=== PATIENT | female | born 1930 | race Caucasian/White ===

== ENCOUNTER 2016-12-22 06:50 | Inpatient (IN) | payer MEDICARE, OTHER ==
[2016-12-22] MEDS ORDERED: SODIUM CHLORIDE 0.9% 1,000 ML IV ONE (07:14)
[2016-12-22] MEDS ORDERED: LEVALBUTEROL 1.25 MG INH STA (07:23)
[2016-12-22] MEDS ORDERED: SODIUM CHLORIDE INHALATION 3 ML NEB ONE (07:30)
[2016-12-22] MEDS ORDERED: LEVALBUTEROL 1.25 MG INH ONE (07:30)
[2016-12-22] MEDS ORDERED: SODIUM CHLORIDE FLUSH 0.9% 10 ML SYRINGE IVP ONE ×2 (07:35→08:47)
--- NOTE | 2016-12-22 07:43 | XRAY Preliminary Report ---
Exam: XR Chest 2 View PA/LAT IMPRESSION: 1. No acute cardiopulmonary abnormality demonstrated. 2. Suspect upper lung bronchitis and bronchiolitis. [facility] SITE ID: [id number]
--- NOTE | 2016-12-22 07:46 | XRAY Report ---
EXAM: CHEST RADIOGRAPHY EXAM DATE: 12/22/2016 07:32 AM. CLINICAL HISTORY: Cough COMPARISON: 06/26/2015. TECHNIQUE: 2 views. FINDINGS: Lungs/Pleura: Moderate thickening within the upper lobes noted bilaterally. There is mild bilateral a pical pleural thickening/scarring. No significant consolidation, effusion, or definite pneumothorax. Mediastinum: Heart and mediastinal contours are unremarkable. Other: Moderate multilevel degenerative change within the spine. IMPRESSION: 1. No acute cardiopulmonary abnormality demonstrated. 2. Suspect upper lung bronchitis and bronchiolitis. [facility] Referring Provider Line: [phone] SITE ID: [id number]
--- NOTE | 2016-12-22 07:50 | ED Physician Documentation ---
History of Present Illness - Stated complaint Stated Complaint: SOA/FLU LIKE SYMPTOMS - Chief complaint Chief Complaint: Resp - Additonal information Additional information: hx from pt 86 f with COPD 4 days of illness sweats and chills, myalgias, cough and soa, nausea and diarrhea son with similar but milder no travel no leg edema Review of Systems Constitutional: reports: Chills, Sweats. denies: Fever Cardiac: denies: Chest pain / pressure Respiratory: reports: Dyspnea, Cough, Wheezing Musculoskeletal: denies: Extremity swelling Neurologic: reports: Generalized weakness Endocrine: denies: Easy bruising / bleeding Immunocompromised: denies: Immunocompromised PD PAST MEDICAL HISTORY - Past Medical History Cardiovascular: Congestive heart failure, Hypertension, High cholesterol, Arrhythmia Respiratory: Emphysema, Pneumonia, Shortness of breath Neuro: Headache/migraine, Peripheral neuropathy Endocrine/Autoimmune: Type 2 diabetes, HyPOthyroidism GI: GERD, Hiatal hernia CHART CHANGER: None : Chronic bladder infection, Nocturia HEENT: Chronic vision loss, Macular degeneration, Chronic hearing loss Psych: Claustrophobia Musculoskeletal: Gout Derm: None - Past Surgical History Past Surgical History: Yes General: Bowel surgery - Present Medications Home Medications: Ambulatory Orders Medication Instructions Recorded Confirmed Cholecalciferol (Vitamin D3) 500 gm MC DAILY 07/26/12 12/22/16 [Vitamin D3] Hydrochlorothiazide 12.5 mg PO DAILY 07/26/12 12/22/16 Levothyroxine [Synthroid] 100 mcg PO QDAC 07/26/12 12/22/16 Lisinopril [Prinivil] 5 mg PO DAILY 07/26/12 12/22/16 Theophylline Anhydrous 300 mg PO DAILY 07/26/12 12/22/16 [Theophylline] Verapamil HCl [Verapamil ER] 240 mg PO DAILY 07/26/12 12/22/16 Vitamin B12 07/26/12 07/26/12 Vitamin B6 200 mg PO DAILY 07/26/12 12/22/16 Albuterol 2.5 mg INH Q4H PRN #30 neb 06/26/15 12/22/16 Albuterol Sulfate 2.5 mg IH 06/26/15 Amoxicillin 500 mg PO TID #20 tablet 06/26/15 Benzonatate [Tessalon] 100 mg PO TID PRN #15 capsule 06/26/15 12/22/16 Montelukast [Singulair] 10 mg PO QPM 06/26/15 12/22/16 Omeprazole 40 mg PO DAILY 06/26/15 06/26/15 Allopurinol 1 tab PO DAILY 12/22/16 12/22/16 Simvastatin 1 tab PO DAILY 12/22/16 12/22/16 - Allergies Allergies/Adverse Reactions: Allergies Allergy/AdvReac Type Severity Reaction Status Date / Time codeine [Codeine] Allergy Intermediate Itching Verified 12/22/16 06:59 - Social History Does the pt smoke?: No Smoking Status: Former smoker Does the pt drink ETOH?: No Does the pt have substance abuse?: No - Immunizations Immunizations are current?: Yes - POLST Patient has POLST: No PD ED PE NORMAL - Vitals Vital signs reviewed: Yes - General General: Alert and oriented X 3 - HEENT HEENT: PERRL - Neck Neck: Supple, no meningeal sign - Cardiac Cardiac: RRR (tachy) - Respiratory Respiratory: Other (ronchi rhgt, faint wheezing kemal) - Abdomen Abdomen: Soft, Non tender - Derm Derm: Normal color - Extremities Extremities: No edema, No calf tenderness / cord - Neuro Neuro: Alert and oriented X 3 Results - Vitals Vitals: Vital Signs - 24 hr 12/22/16 12/22/16 12/22/16 06:53 07:40 08:13 Temperature 36.6 C 36.9 C Heart Rate 134 H 123 H 93 Respiratory 18 18 20 Rate Blood Pressure 143/64 H 131/59 H O2 Saturation 96 92 Oxygen O2 Source Room air - EKG (time done) 933 Rate: Rate (enter#) (119) Rhythm: Sinus tachycardia [place]: LAD Ischemia: Q waves (II III V3), Non specific changes Compare to prior EKG: Old EKG unavailable - Tele (time rhythm occurred) 0900 Telemetry / rhythm strip: Other (appears to be afib) - Labs Labs: Laboratory Tests 12/22/16 12/22/16 12/22/16 07:43 07:43 07:43 WBC 17.5 H RBC 4.18 L Hgb 12.0 Hct 36.9 L MCV 88.2 MCH 28.7 MCHC 32.6 RDW 16.7 H Plt Count 190 MPV 8.9 Neut # 15.3 H Lymph # 1.2 L [place] # 0.8 Eos # 0.1 Baso # 0.1 Absolute Nucleated RBC 0.00 Nucleated RBC % 0.0 Sodium 136 Potassium 3.5 Chloride 99 L Carbon Dioxide 23 Anion Gap 14.0 H BUN 30 H Creatinine 1.2 H Estimated GFR (MDRD) 43 L Glucose 148 H Lactic Acid Calcium 10.3 Troponin I < 0.04 Influenza A (Rapid) Influenza B (Rapid) Influenza Types A,B Ag 12/22/16 12/22/16 07:43 07:43 WBC RBC Hgb Hct MCV MCH MCHC RDW Plt Count MPV Neut # Lymph # [place] # Eos # Baso # Absolute Nucleated RBC Nucleated RBC % Sodium Potassium Chloride Carbon Dioxide Anion Gap BUN Creatinine Estimated GFR (MDRD) Glucose Lactic Acid 1.4 Calcium Troponin I Influenza A (Rapid) Negative Influenza B (Rapid) Negative Influenza Types A,B Ag - - Rads (name of study) CXR Radiology: See rad report (upper lunch bronchitis and bronchiolitis) PD MEDICAL DECISION MAKING - ED course ED course: 86 female with COPD clinically sounds like she has influenza or right pna influenza swab neg and only a few cases of influenza locally so far so suspect pna CXR = no infiltrate but can commonly lag behind exam with underlying COPD and needing admit would rx antibiotic even if only bronchitis gave nebs, steroids, rocephin/zmax HR noted (SIRS) but lactate neg and BP fine and pt with hx CHF so only gave 1 L NS antony 92% RA, HR up to 135, will need admit tele looks like a fib - EMR states hx "arrhythmia" and pt is on verapamil but pt states she has no knowledge of having a fib - will get an EKG - EKG shows sinus tach Departure - Departure Disposition: 66 [facility] DC/Xfer Clinical Impression: Bronchitis COPD (chronic obstructive pulmonary disease) Qualifiers: COPD type: unspecified COPD Qualified Code(s): J44.9 - Chronic obstructive pulmonary disease, unspecified Condition: Fair
[2016-12-22 08:02] LABS: BASOPHILS # (AUTO) 0.1 10^3/uL (0.0-0.1); BASOPHILS % (AUTO) 0.5 %; EOSINOPHILS # (AUTO) 0.1 10^3/uL (0.0-0.7); EOSINOPHILS % (AUTO) 0.6 %; HCT - HEMATOCRIT 36.9 % (37.0-47.0); LYMPHOCYTES # (AUTO) 1.2 10^3/uL (1.5-3.5); LYMPHOCYTES % (AUTO) 6.8 %; MEAN CORPUSCULAR HEMOGLOBIN 28.7 pg (27.0-31.0); MEAN CORPUSCULAR HGB CONC 32.6 g/dL (32.0-36.0); MEAN CORPUSCULAR VOLUME 88.2 fL (81.0-99.0); MEAN PLATELET VOLUME 8.9 fL (7.9-10.8); MONOCYTES # (AUTO) 0.8 10^3/uL (0.0-1.0); MONOCYTES % (AUTO) 4.6 %; NEUTROPHILS # (AUTO) 15.3 10^3/uL (1.5-6.6); NEUTROPHILS % (AUTO) 87.5 %; RED BLOOD COUNT 4.18 10^6/uL (4.20-5.40); RED CELL DISTRIBUTION WIDTH 16.7 % (12.0-15.0); UNCORRECTED WHITE BLOOD COUNT 17.5 x10^3/uL; WHITE BLOOD COUNT 17.5 x10^3/uL (4.8-10.8)
[2016-12-22 08:14] LABS: CALCIUM 10.3 mg/dL (8.5-10.3); CREATININE 1.2 mg/dL (0.4-1.0); POTASSIUM 3.5 mmol/L (3.5-5.0)
[2016-12-22] MEDS ORDERED: methylPREDNISolone SUCCINATE 125 MG/2 ML VIAL IVP STA (08:21)
[2016-12-22] MEDS ORDERED: AZITHROMYCIN INJ 500 MG in SODIUM CHLORIDE 0.9% 250 ML IV STA (08:21)
[2016-12-22] MEDS ORDERED: cefTRIAXone 1 GM in SODIUM CHLORIDE 0.9% MINIBAG 100 ML IV STA (08:21)
[2016-12-22] MEDS ORDERED: cefTRIAXone 1 GM VIAL ONE (08:38)
[2016-12-22] MEDS ORDERED: methylPREDNISolone SUCCINATE 125 MG/2 ML VIAL ONE (08:39)
[2016-12-22] MEDS ORDERED: SODIUM CHLORIDE FLUSH 0.9% 10 ML SYRINGE IVP PRN (09:01)
[2016-12-22] MEDS ORDERED: SODIUM CHLORIDE 0.9% 1,000 ML IV SCH (10:00)
[2016-12-22] MEDS ORDERED: IPRATROPIUM/ALBUTEROL 3 ML NEB INH PRN (10:27)
[2016-12-22] MEDS ORDERED: LEVOTHYROXINE 100 MCG TABLET PO SCH (11:00)
[2016-12-22] MEDS: ENOXAPARIN 30 MG/0.3 ML SYRINGE SUBQ SCH (11:33)
[2016-12-22] MEDS: VERAPAMIL ER 120 MG TABLET PO SCH (11:33)
--- NOTE | 2016-12-22 12:05 | HISTORY & PHYSICAL EXAMINATION ---
DATE OF ADMISSION: 12/22/2016 PRIMARY CARE PROVIDER: Laura Mccabe MD. CHIEF COMPLAINT: Things started with a runny nose a few days ago and then she had diarrhea and now she is coughing with cream colored sputum and short of breath. HISTORY OF PRESENT ILLNESS: The patient is an 86-year-old female who lives with her son and comes in today feeling progressively worse over 3-4 days. Her son at he started developing some runny nose symptoms several days ago and for approximately 4 days now she has felt poorly with runny nose, no sinus pain, with no fever, but she has had sweats, has had what she refers to as diarrhea, which she qualifies/quantifies as loose bowels 1-2 times daily. Today she feels short of breath. Last had a real meal about 4 days ago, but has just been eating things liketoast and very small amounts of food. She has not taken her medications in 4 days. She does not usually have a cough despite her history of COPD and now has had a cough, sometimes productive of cream colored sputum. She uses her hand held bronchodilator ~ every 4-6 hrs at home. She has a nebulizer but was told not to use it since starting Breo a few months ago. She has not been hospitalized for COPD before. There is no associated chest pain. She does feel better after a breathing treatment in the ED. PAST MEDICAL HISTORY This is primarily obtained looking at the patient's actual pill bottles and inferring what her diagnoses and on prior presentations to the ER. She has not previously been admitted. 1. COPD,/emphysema for which she is on home theophylline and albuterol p.r.n. and recently started Breo ellipta (not in her purse with her other meds) 2. CHF is listed; however, she denies this and there are no prior echoes in the system here. 3. Hypertension. 4. Hyperlipidemia. 5. Peripheral neuropathy related to diabetes mellitus type 2. 6. Diabetes mellitus type 2, which is diet controlled. 7. Gastroesophageal reflux disease. 8. Gout. 09. Hypothyroidism. ALLERGIES: CODEINE. HOME MEDICATIONS These were confirmed looking through the pill bottles in her purse. 1. Hydrochlorothiazide 12.5 mg once daily. 2. Lisinopril 5 mg once daily. 3. Simvastatin 20 mg once daily. 4. Montelukast 10 mg or Singular. 5. Theophylline ER 300 mg once daily. 6. Allopurinol 300 mg once daily. 7. Levothyroxine 100 mg once daily. 8. Verapamil hydrochloride 240 mg once daily. 9. Omeprazole, which she is no longer taking, she says because "it made her sick." Of note, the patient says she has not taken her medications in about 3-4 days. 10. Breo ellipta (LABA + steroid) (which she informed me of after admission) SOCIAL HISTORY: [place] has been for many years[place] She does have another son who does not live nearby and she did have also a child who of complications of diabetes. She "killed himself with diabetes." She does have a history of tobacco use, which she stopped she says in 1975. She smoked for approximately 27 years, half pack a day, and she says she left a lot of cigarettes burning sitting on the igor tray. She does not drink and has no history of illicits. REVIEW OF SYSTEMS: She denies any unintentional weight loss or weight gain, although she has had very little oral intake for the last several days. Chills and sweats as per the HPI. HEAD, EARS, EYES, NOSE AND THROAT: She denies any vision changes. Wears glasses. No trouble chewing or swallowing. CARDIOVASCULAR: No chest pain or pressure. No palpitations, despite her heart rate currently being about 120. As above, she denies having history of congestive heart failure diagnosis, no lower extremity edema. No orthopnea and no near syncope. RESPIRATORY: Per the HPI. GASTROINTESTINAL: As above, little p.o. intake and diarrhea as per the HPI. No hematochezia or melena. GENITOURINARY: She denies frequency, dysuria, or hesitancy. MUSCULOSKELETAL: She denies any falls. She has a cane at home, which she does not use that often, but she says she always has it handy. SKIN: She denies any rash or changes. NEUROLOGIC: No weakness, paresthesias, or discoordination. No confusion, memory loss, or loss of consciousness. PSYCHIATRIC: She denies any new change. ENDOCRINE: She checks her blood sugars given her history of diabetes. She reports they are generally around 90. She does not take any medications for the diabetes. She denies any recent change in her thyroid medication. PHYSICAL EXAMINATION VITAL SIGNS: On presentation in the emergency room, she was afebrile with a heart rate of approximately 134, blood pressure 143/64, respiratory rate 18, 96 % oxygen on room air. At the time I saw her, she was still afebrile, heart rate about 126, blood pressure 131/59, respiratory rate 20, 93% oxygen on room air.GENERAL: The patient was evaluated in the emergency room. She is an elderly female lying on the stretcher with her head at approximately 45 degrees in no acute distress. She is alert, oriented and appropriate, even though she is not wearing oxygen and saturating in the low 90s. HEAD, EYES, EARS, NOSE AND THROAT: She is normocephalic, atraumatic. She does still have a full head of hair, which is very white. She is wearing glasses. Extraocular movements are intact with no nystagmus. Her pupils are equal, approximately 3 mm and reactive to light. There is no icterus. Her oral mucosa is actually relatively moist appearing. She has her own teeth, upper and lower with relatively poor dentition, a few missing teeth, yellowing and fillings. There is no foul odor. NECK: Supple. Her carotids are +2 with no appreciable extra sounds. HEART: Irregular S1, S2 with a rapid rate, currently rate about 120. I do appreciate any extra sounds at this rate. There is no peripheral edema. She does have some spider varicosities on her lower extremities.CHEST: She has unlabored respirations at rest. On auscultation, her breath sounds are distant. She is not particularly barrel chested. She has some sonorous expiratory sounds in the left lower base and inspiratory crackles on the right base and some scattered sonorous sounds. Otherwise, she is relatively clear with no wheezing. Periphery is notable for no cyanosis. ABDOMEN: Modestly obese with positive bowel sounds, soft, nontender with no scars, other than a very faint one midline, which she says was from an old hysterectomy. I do not appreciate any organomegaly. There is no tenderness. There is no suprapubic tenderness. 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 Reflexes were not tested. LABORATORY DATA: White count 17.5, hemoglobin 12, hematocrit 36.9, platelets 190 ,000, no bands. Sodium 136, potassium 3.5, chloride 99, bicarbonate 23, BUN 30, creatinine 1.2. There is no prior for comparison. Glucose 148. Troponin less than 0.04. Influenza A and B rapid tests were negative. IMAGING: A 2-view chest showed moderate thickening of the upper lobes bilaterally with mild bilateral apical pleural thickening/scarring. No significant consolidation, effusion or other. A 12-lead EKG was sinus tachycardia with a rate of approximately 120 with a left axis. There are Q's inferiorly in III and F and no acute ischemic changes. ASSESSMENT AND PLAN 1. Pneumonia. Right lower lobe suspected given leukocytosis, Right lower lobe crackles and worsening shortness of breath. Although there is no clear infiltrate on her chest x-ray, she is notably volume deplete, and I suspect an infiltrate will materialize after hydration. A chest x-ray will be repeated tomorrow. She will continue on the azithromycin and ceftriaxone at this point and will have scheduled nebulizer treatments q 4 hr when awake and prn wheeze and oxygen if needed. Since she is on Breo, will add pulmicort nebs here, but no systemic steroids as she does not have wheezing. If after hydration, she does still not have an infiltrate, then we will consider other possibilities for her leukocytosis, including her diarrhea. Of note, she does not have any urinary symptoms. Conceivably she could have an influenza given the sensitivity and specificity on the rapid antigen test, but given that she has had symptoms for several days without any sort of profound weakness and no fever, this is likely accurate negative on her influenza test and relatively low prevalence currently. 2. Chronic obstructive pulmonary disease. At home, she is on theophylline, p.r.n. albuterol and Singular that will be continued. In lieu of Breo, will give nebulized pulmicort. Will hold on systemic steroids as above I do not have PFTs in the record to refer to. 3. Tachycardia. This is a sinus tachycardia and likely related to her volume depletion, as well as not having taken her verapamil hydrochloride for several days. We will reevaluate once her is volume is more replete and she is hemodynamically stable with adequate blood pressure. Old records indicate history of "arrhythmia" although she is not familiar with this and there is no suggestion of this on her 12-lead EKG. She will be on telemetry until her heart rate is clear more better rate controlled. Will hold her levothyroxine until a TSH is checked in case she is over replaced on her thyroid although I suspect it is related more to the missed calcium channel karuna and voume depletion. 4. Hypertension. At home, she is on lisinopril and verapamil and HCTZ. I will hold the lisinopril and HCTZ until she is more volume replete. I am resuming her verapamil at half of the home dose and we will reevaluate tomorrow for resuming the home dose and holding her hydrochlorothiazide. 5. Diabetes mellitus type 2. She is on no medications at home and she reports her sugars being 90. She does not have any hypoglycemia at home. We will twice daily fingersticks while she is here and stop them if she does not have any glucoses over 140. 6. Gastroesophageal reflux disease. She used to be on a PPI, but is no longer taking it, so does not have any need for H2 karuna or PPI and no indication for GI prophylaxis. 7. Gout. At home she is on allopurinol. That will be continued. 8. Hypothyroidism. At home she is on levothyroxine. above will check TSH to ensure not overrepleted re: her tachycardia, otherwise will resume at home dose if TSH ok. 9. COR STATUS: She is a FULL COR, though she says "please do not break any bones." 10. Deep venous thrombosis prophylaxis. She is on Lovenox and I have reduced this to 30 given her age. 11) Disposition; expect a stay of over 2 midnights due to the pneumonia and tachycardia. Will encourage OOB to chair to avoid deconditioning and hopeful return home JOB #: [id number] EXT JOB #:[id number] LISA
[2016-12-22] MEDS: CHOLECALCIFEROL 5,000 UNIT CAPSULE PO SCH (12:43)
[2016-12-22] MEDS: SODIUM CHLORIDE FLUSH 0.9% 10 ML SYRINGE IVP SCH ×2 (12:44→20:13)
[2016-12-22 13:17] LABS: HEMOGLOBIN A1C 0.51 g/dL
--- NOTE | 2016-12-22 14:08 | PROVIDER PROGRESS NOTE ---
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 TSH 0.08; over replaced (at 62Kg, 100 mcg would be ~ appropriate weight based dosing) check Free T4, hold levothyroxine (usu recheck in PCP office once acute illness resolved 2Addendum to H/P #1 pneumonia will followup on blood cultures, recheck WBC in am
[2016-12-22] MEDS: INSULIN ASPART 300 UNIT/3 ML PEN SUBQ SCH ×2 (16:38→20:47)
[2016-12-22] MEDS: BUDESONIDE 0.5 MG/2 ML NEB INH SCH ×2 (18:58→19:01)
[2016-12-22] MEDS: IPRATROPIUM/ALBUTEROL 3 ML NEB INH SCH (18:59)
[2016-12-22] MEDS ORDERED: ASPIRIN 325 MG TABLET PO SCH ×2 (20:00)
[2016-12-22] MEDS: ATORVASTATIN 10 MG TABLET PO SCH (20:47)
[2016-12-22] MEDS: MONTELUKAST 10 MG TABLET PO SCH (20:47)
[2016-12-22] MEDS ORDERED: guaiFENesin 100 MG/5 ML UDC PO PRN (23:34)
[2016-12-22] MEDS ORDERED: diphenhydrAMINE 25 MG CAPSULE PO PRN (23:37)
[2016-12-22] MEDS ORDERED: ACETAMINOPHEN 325 MG TABLET PO ONE (23:45)
[2016-12-23] MEDS: SODIUM CHLORIDE FLUSH 0.9% 10 ML SYRINGE IVP SCH ×3 (04:34→20:09)
[2016-12-23 05:35] LABS: HCT - HEMATOCRIT 33.3 % (37.0-47.0); MEAN CORPUSCULAR HEMOGLOBIN 29.3 pg (27.0-31.0); MEAN CORPUSCULAR VOLUME 88.8 fL (81.0-99.0); MEAN PLATELET VOLUME 8.7 fL (7.9-10.8); RED BLOOD COUNT 3.75 10^6/uL (4.20-5.40); RED CELL DISTRIBUTION WIDTH 16.6 % (12.0-15.0); WHITE BLOOD COUNT 10.3 x10^3/uL (4.8-10.8)
[2016-12-23 05:46] LABS: CALCIUM 8.6 mg/dL (8.5-10.3); POTASSIUM 3.5 mmol/L (3.5-5.0)
[2016-12-23] MEDS: BUDESONIDE 0.5 MG/2 ML NEB INH SCH ×2 (07:58→20:25)
[2016-12-23] MEDS: IPRATROPIUM/ALBUTEROL 3 ML NEB INH SCH ×4 (07:58→20:35)
[2016-12-23] MEDS: INSULIN ASPART 300 UNIT/3 ML PEN SUBQ SCH ×4 (08:40→20:08)
[2016-12-23] MEDS: VERAPAMIL ER 120 MG TABLET PO SCH (08:40)
[2016-12-23] MEDS: AZITHROMYCIN 250 MG TABLET PO SCH (08:40)
[2016-12-23] MEDS: CHOLECALCIFEROL 5,000 UNIT CAPSULE PO SCH (08:41)
[2016-12-23] MEDS: ENOXAPARIN 30 MG/0.3 ML SYRINGE SUBQ SCH (08:42)
[2016-12-23] MEDS: POLYETHYLENE GLYCOL 3350 17 GM PACKET PO SCH (08:42)
[2016-12-23] MEDS: cefTRIAXone 1 GM in SODIUM CHLORIDE 0.9% MINIBAG 100 ML IV SCH (08:42)
--- NOTE | 2016-12-23 08:49 | XRAY Report ---
TWO-VIEW CHEST: 12/23/2016 CLINICAL INDICATION: Reevaluation for infiltrate after hydration. COMPARISON: 12/22/2016 FINDINGS: Frontal and lateral views of the chest demonstrate a normal cardiac silhouette. There is increasing opacity at the right apex and left base, compatible with infiltrate. No effusion or pneum othorax is present. IMPRESSION: RIGHT APICAL AND LEFT BASILAR AIRSPACE OPACITIES, COMPATIBLE WITH INFILTRATE. JOB #: [id number] EXT JOB #:[id number]
[2016-12-23] MEDS: THEOPHYLLINE ER 300 MG TABLET PO SCH (10:22)
--- NOTE | 2016-12-23 13:22 | PROVIDER PROGRESS NOTE ---
Subjective - Prog Note Date Prog Note Date: 12/23/16 Prog Note Time: 13:20 - Subjective Pt reports feeling: Improved (seen ~ 730 just before heading to CXR lyin in bed , NAd, transfers easily to wheel chair and sits self to upright at edge of bed "I got confused last night and wasnt wearing my gown') Current Medications - Current Medications Current Medications: Active Medications Generic Name Dose Route Start Last Admin Trade Name Freq PRN Reason Stop Dose Admin Albuterol/Ipratropium 3 ml 12/22/16 10:27 Duoneb INH Q4HR PRN Wheezing Albuterol/Ipratropium 3 ml 12/22/16 17:00 12/23/16 12:44 Duoneb INH 12/23/16 16:59 3 ml Q4HR ALMA ROSA Administration Atorvastatin Calcium 10 mg 12/22/16 21:00 12/22/16 20:47 Lipitor PO 10 mg QPM ALMA ROSA Administration Azithromycin 250 mg 12/23/16 09:00 12/23/16 08:40 Zithromax PO 12/26/16 09:01 250 mg DAILY ALMA ROSA Administration Budesonide 0.5 mg 12/22/16 14:00 12/23/16 07:58 Pulmicort INH 0.5 mg RTBID ALMA ROSA Administration Cholecalciferol 5,000 unit 12/22/16 12:00 12/23/16 08:41 Vitamin D3 PO 5,000 unit DAILY ALMA ROSA Administration Diphenhydramine HCl 25 mg 12/22/16 23:37 12/23/16 00:00 Benadryl PO 25 mg QPM PRN Administration Insomnia Enoxaparin Sodium 30 mg 12/22/16 11:00 12/23/16 08:42 Lovenox SUBQ 30 mg DAILY ALMA ROSA Administration Guaifenesin 100 mg 12/22/16 23:34 12/23/16 00:00 Robitussin Liquid PO 100 mg Q6HR PRN Administration Cough Ceftriaxone Sodium 1 gm/ 100 mls @ 200 mls/hr 12/23/16 09:00 12/23/16 09:37 Sodium Chloride IV Infused DAILY ALMA ROSA Infusion Insulin Aspart 1 - 5 unit 12/22/16 17:00 12/23/16 11:36 Novolog SUBQ 2 unit 0800,1200,1700,2100 ALMA ROSA Administration Protocol Montelukast Sodium 10 mg 12/22/16 21:00 12/22/16 20:47 Singulair PO 10 mg QPM ALMA ROSA Administration Polyethylene Glycol 17 gm 12/23/16 09:00 12/23/16 08:42 Miralax PO Not Given DAILY ALMA ROSA Sodium Chloride 10 ml 12/22/16 09:01 Normal Saline Flush 0.9% IVP PRN PRN NEEDED PER PROVIDER ORDERS Sodium Chloride 10 ml 12/22/16 14:00 12/23/16 08:42 Normal Saline Flush 0.9% IVP 10 ml Q8HR ALMA ROSA Administration Theophylline 300 mg 12/23/16 09:00 12/23/16 10:22 Theodur PO 300 mg DAILY ALMA ROSA Administration Verapamil HCl 120 mg 12/22/16 11:00 12/23/16 08:40 Calan Sa PO 120 mg DAILY ALMA ROSA Administration Cyanocobalamin (Vitamin B-12) [Vitamin B-12 (500 mcg sublingual)] 500 mcg PO DAILY 07/26/12 Hydrochlorothiazide 12.5 mg PO DAILY 07/26/12 Levothyroxine [Synthroid] 100 mcg PO QDAC 07/26/12 Lisinopril [Prinivil] 5 mg PO DAILY 07/26/12 Pyridoxine HCl [Vitamin B-6] 100 mg PO DAILY 07/26/12 Theophylline Anhydrous [Theophylline] 300 mg PO DAILY 07/26/12 Verapamil HCl [Verapamil ER] 240 mg PO DAILY 07/26/12 Montelukast [Singulair] 10 mg PO QPM 06/26/15 Albuterol Sulfate [Proair Respiclick] 1 puffs IH Q4H PRN 12/22/16 Allopurinol 300 mg PO DAILY 12/22/16 Aspirin 81 mg PO DAILY 12/22/16 Cholecalciferol [Vitamin D3] 5,000 unit PO DAILY 12/22/16 Fluticasone/Vilanterol [Breo Ellipta 100-25 Mcg INH] 1 each IH DAILY 12/22/16 Simvastatin 20 mg PO DAILY 12/22/16 Objective - Vital Signs/Intake & Output Reviewed Vital Signs: Yes Vital Signs: Vital Signs x48h Temp Pulse Pulse Resp BP Pulse Ox 12/23/16 12:46 98 16 12/23/16 11:23 36.2 C L 99 18 124/52 L 95 12/23/16 08:52 36.3 C L 92 18 116/52 L 96 12/23/16 08:00 72 16 Intake & Output: Intake & Output 12/20/16 12/21/16 12/22/16 12/23/16 23:59 23:59 23:59 23:59 Intake Total 4143.333 1520 Output Total 1550 1550 Balance 2593.333 -30 - Objective General Appearance: positive: No acute distress, Other (alert, and oriented) Eyes Bilateral: positive: PERRL, EOMI, No scleral icterus Respiratory: positive: No respiratory distress, Rhonchi, Other (occas loose cough, nonproductive here chest sounds much clearer currently than yesterday. RLL crackles still present but less, rare rhonchi, no wheezing showed me some cream colored phlegm she was able to cough up for the first time since admit). negative: Breath sounds nml Cardiovascular: positive: Regular rate & rhythm. negative: Tachycardia Abdomen: positive: Nml bowel sounds, No distention. negative: Tenderness Skin: positive: Warm, Dry Extremities: positive: No pedal edema Neurologic/Psychiatric: positive: Oriented x3 - Lab Results Fish Bones: 12/23/16 05:25 12/23/16 05:25 Other Labs: Lab Results x24hrs 12/23/16 12/23/16 12/23/16 Range/Units 10:50 07:29 05:25 WBC (4.8-10.8) x10^3/uL RBC (4.20-5.40) 10^6/uL Hgb (12.0-16.0) g/dL Hct (37.0-47.0) % MCV (81.0-99.0) fL MCH (27.0-31.0) pg MCHC (32.0-36.0) g/dL RDW (12.0-15.0) % Plt Count (130-450) 10^3/uL MPV (7.9-10.8) fL Sodium 137 (135-145) mmol/L Potassium 3.5 (3.5-5.0) mmol/L Chloride 104 (101-111) mmol/L Carbon Dioxide 22 (21-32) mmol/L Anion Gap 11.0 (6-13) BUN 27 H (6-20) mg/dL Creatinine 1.0 (0.4-1.0) mg/dL Estimated GFR (MDRD) 53 L (>89) Glucose 155 H (70-100) mg/dL POC Whole Bld Glucose 195 H 142 H (70 - 100) mg/dL Calcium 8.6 (8.5-10.3) mg/dL TSH (0.34-5.60) uIU/mL Free T4 (0.58-1.64) ng/dL 12/23/16 12/22/16 12/22/16 Range/Units 05:25 20:12 16:23 WBC 10.3 (4.8-10.8) x10^3/uL RBC 3.75 L (4.20-5.40) 10^6/uL Hgb 11.0 L (12.0-16.0) g/dL Hct 33.3 L (37.0-47.0) % MCV 88.8 (81.0-99.0) fL MCH 29.3 (27.0-31.0) pg MCHC 33.0 (32.0-36.0) g/dL RDW 16.6 H (12.0-15.0) % Plt Count 156 (130-450) 10^3/uL MPV 8.7 (7.9-10.8) fL Sodium (135-145) mmol/L Potassium (3.5-5.0) mmol/L Chloride (101-111) mmol/L Carbon Dioxide (21-32) mmol/L Anion Gap (6-13) BUN (6-20) mg/dL Creatinine (0.4-1.0) mg/dL Estimated GFR (MDRD) (>89) Glucose (70-100) mg/dL POC Whole Bld Glucose 189 H 203 H (70 - 100) mg/dL Calcium (8.5-10.3) mg/dL TSH (0.34-5.60) uIU/mL Free T4 (0.58-1.64) ng/dL 12/22/16 12/22/16 Range/Units 11:05 11:04 WBC (4.8-10.8) x10^3/uL RBC (4.20-5.40) 10^6/uL Hgb (12.0-16.0) g/dL Hct (37.0-47.0) % MCV (81.0-99.0) fL MCH (27.0-31.0) pg MCHC (32.0-36.0) g/dL RDW (12.0-15.0) % Plt Count (130-450) 10^3/uL MPV (7.9-10.8) fL Sodium (135-145) mmol/L Potassium (3.5-5.0) mmol/L Chloride (101-111) mmol/L Carbon Dioxide (21-32) mmol/L Anion Gap (6-13) BUN (6-20) mg/dL Creatinine (0.4-1.0) mg/dL Estimated GFR (MDRD) (>89) Glucose (70-100) mg/dL POC Whole Bld Glucose (70 - 100) mg/dL Calcium (8.5-10.3) mg/dL TSH < 0.08 L (0.34-5.60) uIU/mL Free T4 1.43 (0.58-1.64) ng/dL Assessment/Plan - Problem List (1) Community acquired pneumonia Impression: Following hydration she did have some infiltrates become more clear (R apical and l basilar, rather than R base where we thought there would be an infiltrate) leukocytosis improving, afebrile, blood cultures neg at one day , still no 02 requirement continue Ceftriaxone , azithromycin today got scheduled nebs yesterday, and just prn nebs now can likely d/c tomorow on azithro and amoxacillin as per IDSA recommendations ( considered just azithro since she is improvoing quickly, but since multilobar, and CopD at baseline will use both (2) COPD (chronic obstructive pulmonary disease) Impression: no signiifcant wheezing on presentation, so did not add systemic steroids continue pulmicort nebs here (on Breo ellipta at home) continue theodur and montelukast continue prn bronchodilator at home (she says she was told not to use nebulizer w/ her Breo) Qualifiers: COPD type: unspecified COPD Qualified Code(s): J44.9 - Chronic obstructive pulmonary disease, unspecified (3) Prerenal acute renal failure Impression: already improving w/ iVF, 1.2>>1.0 cr. Still a little dry by BUN continue iVF, continue hold ACEI and thiazide recheck in am (4) Sinus tachycardia Impression: resolved, suspect this was due to hypovolemia, and some rebound tach having not having taken her verapamil for 3-4 days initially thought her levothyroine might be over replaced w/ TSH 0.08, but free T4 ok ; caitlin sick-euthyroid see next problem Have resumed her home verapamil at 50% of her homed dose, thus far (5) Hypertension Impression: on verapamil 240 mg /day, lisinopril 5/day, and HCTZ at home 12.5 mg held acei and hctz on admit resumed verapamil at 1/2 of home dose yesterday. BP not hypotensive, but still holding acei and hctz for now Will order home dose verapamil for tomorrow, and resume acei/ hctz when BP warrants (may need to wait til she gets f/u after acute illness (6) Hypothyroidism Impression: checked TSH on admit given her tachycardia. TSH 0.08, but free T4 normal, ; likely sick euthyroid w/ acuete illness At 1.6 ucg/kg/day, 100 ucg is appropriate, PCP could reheck when acute illness resolves, Maybe she only needs 88 mcg (7) Diabetes mellitus type 2, diet-controlled Impression: diet contorlled at home A1C 5.8 indicates good control Mild elevation currently due to acute illness just doing bid FSBG breakfast dinner/ glucoses under 200 Will not need DM medication at time of d/c (just diet control) - continue statin (8) Gout Impression: no flare despite volume depletion; continue home dose alopurinol (meant to reduce dose on admit for Dionna, but renal fxn already improved
[2016-12-23] MEDS: ATORVASTATIN 10 MG TABLET PO SCH (20:08)
[2016-12-23] MEDS: MONTELUKAST 10 MG TABLET PO SCH (20:08)
[2016-12-24] MEDS: SODIUM CHLORIDE FLUSH 0.9% 10 ML SYRINGE IVP SCH (06:28)
[2016-12-24] MEDS: BUDESONIDE 0.5 MG/2 ML NEB INH SCH (07:40)
[2016-12-24] MEDS: INSULIN ASPART 300 UNIT/3 ML PEN SUBQ SCH (08:05)
[2016-12-24] MEDS: POLYETHYLENE GLYCOL 3350 17 GM PACKET PO SCH (08:06)
[2016-12-24] MEDS: CHOLECALCIFEROL 5,000 UNIT CAPSULE PO SCH (08:06)
[2016-12-24] MEDS: AZITHROMYCIN 250 MG TABLET PO SCH (08:06)
[2016-12-24] MEDS: THEOPHYLLINE ER 300 MG TABLET PO SCH (08:06)
[2016-12-24] MEDS: ENOXAPARIN 30 MG/0.3 ML SYRINGE SUBQ SCH (08:07)
[2016-12-24] MEDS: cefTRIAXone 1 GM in SODIUM CHLORIDE 0.9% MINIBAG 100 ML IV SCH (08:07)
[2016-12-24 08:38] VITALS: BP 121/60
[2016-12-24] MEDS ORDERED: VERAPAMIL ER 120 MG TABLET PO SCH (09:00)
--- NOTE | 2016-12-24 11:07 | Discharge Plan ---
Discharge Plan Disposition: 01 Home, Self Care Condition: Stable Prescriptions: Amox/Clav 500/125 [Augmentin] 1 each PO Q12H #14 tablet Azithromycin 250 mg PO DAILY #3 tablet Diet: Diabetic Activity Restrictions: Activity as Tolerated Shower Restrictions: No Weight Bearing: Full Weight Additional Instructions or Follow Up instructions: May see PCP in one week, may have a CXR in two weeks Follow-Up Care: [facility] - Medical, [facility] - Diabetes Ed No Smoking: If you smoke, Please STOP! Call for help. Follow-up with: Laura Mccabe MD [Primary Care Provider] -
--- NOTE | 2016-12-24 11:18 | DISCHARGE SUMMARY ---
Discharge Summary Admit Date: 12/22/16 Discharge Date: 12/24/16 Discharging Provider: DIAZ Primary Care Provider: Laura Sevilla Code Status: Do Not Attempt Resuscitation Condition at Discharge: Stable Discharge Disposition: 01 Home, Self Care Discharge Facility Name: home - DIAGNOSES Admission Diagnoses: (1) Community acquired pneumonia (2) COPD (chronic obstructive pulmonary disease) (3) Prerenal acute renal failure (4) Sinus tachycardia (5) Hypertension (6) Hypothyroidism (7) Diabetes mellitus type 2, diet-controlled (8) Gout Discharge Diagnoses with Status of Each Condition: (1) Community acquired pneumonia Room air with SO93%, denies SOB, fever, chill, cough. vital stable. Will continue to finish the antibiotics course by PO (2) COPD (chronic obstructive pulmonary disease) stable, continue home meds, follow up by PCP (3) Prerenal acute renal failure resolved (4) Sinus tachycardia resolved (5) Hypertension stable (6) Hypothyroidism T4 normal, chronic condition, will follow up by PCP (7) Diabetes mellitus type 2, diet-controlled stable (8) Gout stable - HPI History of Present Illness: please refer from Ms. Albarran's HPI on 12/22/16 - HOSPITAL COURSE Hospital Course: Pt was admitted for SOB, sweating, running nose, and CXR reveals pneumonia. Pt was treated with CAP with Azithyomycin and rocephin. After treatment, pt felt much better, no SOB, no cough, no fever or chill. Room air with SO2 93-97%. Pt request to be D/C to home. - ALLERGIES Allergies/Adverse Reactions: Allergies Allergy/AdvReac Type Severity Reaction Status Date / Time codeine [Codeine] Allergy Intermediate Itching Verified 12/22/16 06:59 - MEDICATIONS Home Medications: Ambulatory Orders Medication Instructions Recorded Confirmed Cyanocobalamin (Vitamin B-12) 500 mcg PO DAILY 07/26/12 12/22/16 [Vitamin B-12 (500 mcg sublingual)] Hydrochlorothiazide 12.5 mg PO DAILY 07/26/12 12/22/16 Levothyroxine [Synthroid] 100 mcg PO QDAC 07/26/12 12/22/16 Lisinopril [Prinivil] 5 mg PO DAILY 07/26/12 12/22/16 Pyridoxine HCl [Vitamin B-6] 100 mg PO DAILY 07/26/12 12/22/16 Theophylline Anhydrous 300 mg PO DAILY 07/26/12 12/22/16 [Theophylline] Verapamil HCl [Verapamil ER] 240 mg PO DAILY 07/26/12 12/22/16 Montelukast [Singulair] 10 mg PO QPM 06/26/15 12/22/16 Albuterol Sulfate [Proair 1 puffs IH Q4H PRN 12/22/16 12/22/16 Respiclick] Allopurinol 300 mg PO DAILY 12/22/16 12/22/16 Aspirin 81 mg PO DAILY 12/22/16 12/22/16 Cholecalciferol [Vitamin D3] 5,000 unit PO DAILY 12/22/16 12/22/16 Fluticasone/Vilanterol [Breo 1 each IH DAILY 12/22/16 12/22/16 Ellipta 100-25 Mcg INH] Simvastatin 20 mg PO DAILY 12/22/16 12/22/16 Amox/Clav 500/125 [Augmentin] 1 each PO Q12H #14 tablet 12/24/16 Azithromycin 250 mg PO DAILY #3 tablet 12/24/16 - PHYSICAL EXAM AT DISCHARGE General Appearance: positive: No acute distress, Alert. negative: Lethargic Eyes Bilateral: positive: Normal inspection, PERRL, EOMI, No lid inflammation, Conjunctivae nml ENT: positive: ENT inspection nml, Pharynx nml, No signs of dehydration. negative: Purulent nasal drainage, Pharyngeal erythema, Oral lesions Neck: positive: Nml inspection, Thyroid nml, Trachea midline. negative: Thyromegaly, Lymphadenopathy (R), Lymphadenopathy (L), Stiff neck, Carotid bruit , Swelling/bruising, Tracheal deviation Respiratory: positive: Chest non-tender, No respiratory distress, Breath sounds nml. negative: Wheezes, Rales, Rhonchi Cardiovascular: positive: Regular rate & rhythm, No murmur, No gallop. negative : Irregularly irregular, Extrasystoles, Tachycardia, Bradycardia, Systolic murmur, Diastolic murmur Peripheral Pulses: positive: 2+ Abdomen: positive: Non-tender, Nml bowel sounds, No distention. negative: Tenderness, Guarding, Rebound Back: positive: Nml inspection. negative: CVA tenderness (R), CVA tenderness (L ) Skin: positive: Color nml, No rash, Warm, Dry. negative: Cyanosis, Diaphoresis , Pallor, Skin rash Extremities: positive: Non-tender, Full ROM, Nml appearance. negative: Pedal edema, Calf tenderness, Asya's sign/cords Neurologic/Psychiatric: positive: Oriented x3, Motor nml, Sensation nml, Mood/ affect nml. negative: Sensory loss, Facial droop, Slurred/abnml speech, Depressed mood/affect - LABS Result Diagrams: 12/23/16 05:25 12/23/16 05:25 - FOLLOW UP Follow Up: May see PCP in one week, have a CXR in two week, continue to finish antibiotics course.
== END 2016-12-24 12:23 | disposition home or self-care (01) | DRG 194 ==
LOC: ED 06:50 → MS2 09:01
PROVIDERS: ADMIT Nurse Practitioner; ATTEND Nurse Practitioner Gerontology
DX: J44.9 Chronic obstructive pulmonary disease, unspecified (principal); I11.0 Hypertensive heart disease with heart failure; I50.9 Heart failure, unspecified; J18.9 Pneumonia, unspecified organism; J44.0 Chronic obstructive pulmonary disease with (acute) lower respiratory infection; N17.8 Other acute kidney failure; I49.9 Cardiac arrhythmia, unspecified; Z79.899 Other long term (current) drug therapy; I10 Essential (primary) hypertension; E03.9 Hypothyroidism, unspecified; E11.9 Type 2 diabetes mellitus without complications; M10.9 Gout, unspecified; E86.9 Volume depletion, unspecified; R00.0 Tachycardia, unspecified; T46.1X6A Underdosing of calcium-channel blockers, initial encounter; Z91.138 Patient's unintentional underdosing of medication regimen for other reason; E78.5 Hyperlipidemia, unspecified; E11.42 Type 2 diabetes mellitus with diabetic polyneuropathy; K21.9 Gastro-esophageal reflux disease without esophagitis; Z87.891 Personal history of nicotine dependence
CPT/HCPCS: 36415; 71020; 80048; 83036; 83605; 84439; 84443; 84484; 85025; 87040; 87275; 87276; 93005; 94640; 94664; 96374; 99283; 99284

== ENCOUNTER 2017-02-14 13:46 | Outpatient (CLI) | payer MEDICARE, OTHER ==
--- NOTE | 2017-02-14 18:45 | XRAY Report ---
TWO VIEW CHEST: 02/14/2017 CLINICAL INDICATION: COPD. COMPARISON: 12/23/2016, 12/22/2016. Frontal and lateral views of the chest demonstrate a normal cardiac silhouette. The lungs remain hyp erinflated. Patchy infiltrates have improved. No effusion or pneumothorax is present. IMPRESSION: COPD. INTERVAL IMPROVEMENT IN PATCHY RIGHT UPPER AND LEFT LOWER LOBE INFILTRATES. JOB #: [id number] EXT JOB #:[id number]
== END 2017-02-14 13:47 | disposition home or self-care (01) ==
LOC: DI 13:46
PROVIDERS: ATTEND Internal Medicine
DX: R91.8 Other nonspecific abnormal finding of lung field (principal); J44.9 Chronic obstructive pulmonary disease, unspecified
CPT/HCPCS: 71020

== ENCOUNTER 2017-03-04 11:08 | Outpatient (CLI) | payer MEDICARE, OTHER ==
--- NOTE | 2017-03-04 13:09 | XRAY Report ---
EXAM: CHEST RADIOGRAPHY EXAM DATE: 03/04/2017 12:10 PM. CLINICAL HISTORY: PNEUMONIA. COMPARISON: 02/14/2017. TECHNIQUE: 2 views. FINDINGS: Lungs/Pleura: There are interstitial densities in the right upper lobe with I lateral apical pleural thickening, unchanged since previous. No developing consolidation. Lung volumes appear symmetric and unchanged. There is localized eventration of the posterior left hemidiaphragm consistent with Bochdal ek hernia. Mediastinum: The heart size is within normal limits. There is mild aortic atherosclerotic calcificati on. Other: None. IMPRESSION: 1. No acute cardiopulmonary abnormality. No change. [facility] Referring Provider Line: [phone] SITE ID: [id number]
== END 2017-03-04 11:09 | disposition home or self-care (01) ==
LOC: DI 11:08
PROVIDERS: ATTEND Internal Medicine
DX: J18.9 Pneumonia, unspecified organism (principal)
CPT/HCPCS: 71020

== ENCOUNTER 2017-08-08 15:54 | Inpatient (IN) | payer MEDICARE, OTHER ==
--- NOTE | 2017-08-08 16:06 | ED Physician Documentation ---
PD HPI FOCAL NEURO - Stated complaint Stated Complaint: ARM TINGLING - Chief complaint Chief Complaint: Neuro - History obtained from History obtained from: Patient - History of Present Illness Timing - onset: How many hours ago (2), Today Timing - duration: Hours (went for nap at 1 pm feeling okay. Awoke with numbness without weakness of left arm and left side of face. Leg felt okay. No other focal symptoms. No visual change.) Timing - details: Abrupt onset, Still present Severity of deficit: Mild Weakness: No: Face, Arm, Hand Numbness: Face, Arm, Hand, Left. No: Foot Associated symptoms: No: Headache, Nausea / vomiting Contributing factors: negative: Anticoagulated, Atrial fibrillation Baseline status: positive: A&OX3, ambulatory, indep Similar symptoms before: No diagnosis (had same symptoms 2 days ago lasting about an hour then improved.) Recently seen: Not recently seen Review of Systems Constitutional: denies: Fever, Chills Nose: denies: Rhinorrhea / runny nose, Congestion Throat: denies: Sore throat Cardiac: denies: Chest pain / pressure, Palpitations Respiratory: denies: Dyspnea, Cough, Wheezing GI: denies: Abdominal Pain, Nausea, Vomiting, Diarrhea : denies: Dysuria, Frequency Musculoskeletal: denies: Neck pain, Back pain Neurologic: reports: Numbness. 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 : Chronic bladder infection, Nocturia HEENT: Chronic vision loss, Macular degeneration, Chronic hearing loss Psych: Claustrophobia Musculoskeletal: Gout Derm: None - Past Surgical History Past Surgical History: Yes General: Bowel surgery - Present Medications Home Medications: Ambulatory Orders Medication Instructions Recorded Confirmed Cyanocobalamin (Vitamin B-12) 500 mcg PO DAILY 07/26/12 12/22/16 [Vitamin B-12 (500 mcg sublingual)] Hydrochlorothiazide 12.5 mg PO DAILY 07/26/12 12/22/16 Levothyroxine [Synthroid] 100 mcg PO QDAC 07/26/12 12/22/16 Lisinopril [Prinivil] 5 mg PO DAILY 07/26/12 12/22/16 Pyridoxine HCl [Vitamin B-6] 100 mg PO DAILY 07/26/12 12/22/16 Theophylline Anhydrous 300 mg PO DAILY 07/26/12 12/22/16 [Theophylline] Verapamil HCl [Verapamil ER] 240 mg PO DAILY 07/26/12 12/22/16 Montelukast [Singulair] 10 mg PO QPM 06/26/15 12/22/16 Albuterol Sulfate [Proair 1 puffs IH Q4H PRN 12/22/16 12/22/16 Respiclick] Allopurinol 300 mg PO DAILY 12/22/16 12/22/16 Aspirin 81 mg PO DAILY 12/22/16 12/22/16 Cholecalciferol [Vitamin D3] 5,000 unit PO DAILY 12/22/16 12/22/16 Fluticasone/Vilanterol [Breo 1 each IH DAILY 12/22/16 12/22/16 Ellipta 100-25 Mcg INH] Simvastatin 20 mg PO DAILY 12/22/16 12/22/16 Amox/Clav 500/125 [Augmentin] 1 each PO Q12H #14 tablet 12/24/16 Azithromycin 250 mg PO DAILY #3 tablet 12/24/16 - Allergies Allergies/Adverse Reactions: Allergies Allergy/AdvReac Type Severity Reaction Status Date / Time codeine [Codeine] Allergy Intermediate Itching Verified 12/22/16 06:59 - Social History Does the pt smoke?: No Smoking Status: Former smoker Does the pt drink ETOH?: No Does the pt have substance abuse?: No - Immunizations Immunizations are current?: Yes - POLST Patient has POLST: No PD ED PE NORMAL - General General: Alert and oriented X 3, No acute distress, Well developed/nourished - HEENT HEENT: Atraumatic, Pharynx benign - Neck Neck: Supple, no meningeal sign, No adenopathy - Cardiac Cardiac: RRR, No murmur - Respiratory Respiratory: No respiratory distress, Clear bilaterally - Abdomen Abdomen: Soft, Non tender - Back Back: No CVA TTP - Derm Derm: Normal color, Warm and dry - Extremities Extremities: No deformity, No tenderness to palpate, Normal ROM s pain - Neuro Neuro: Alert and oriented X 3, 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, No motor deficit, No sensory deficit (has sensation to pinprick in hands/feet.), Normal speech Eye Opening: Spontaneous Motor: Obeys Commands Verbal: Oriented GCS Score: 15 - Psych Psych: Normal mood, Normal affect NIHSS - Level of Consciousness Level of consciousness: (0) Alert, Keenly responsive LOC Questions: (0) Answers both Q's correct LOC Commands: (0) Performs both correctly - Gaze Best Gaze: (0) Normal - Visual Visual: (0) No loss - Facial Palsy Facial Palsy: (0) Normal, symmetrical movement - Motor Arms (both separate) Motor Arm (right): (0) No drift Motor Arm (left): (0) No drift - Motor Legs (both separate) Motor Leg (right): (0) No drift Motor Leg (left): (0) No drift - Limb Ataxia Limb Ataxia: (0) Absent - Sensory Sensory: (1) [id number] loss - Best Language Best Language: (0) No aphasia - Dysarthria Dysarthria: (0) Normal - Extinction and Inattention (formally neg Extinction and inattention: (0) No abnormality - Total Score/Results Total Score/Result: 1 Results - Vitals Vitals: Vital Signs - 24 hr 08/08/17 08/08/17 15:58 17:50 Temperature 36.0 C L Heart Rate 86 73 Respiratory 16 14 Rate Blood Pressure 123/49 L 142/67 H O2 Saturation 99 99 Oxygen O2 Source Room air - Labs Labs: Laboratory Tests 08/08/17 08/08/17 16:50 16:50 WBC 8.3 RBC 4.31 Hgb 12.6 Hct 38.7 MCV 89.7 MCH 29.3 MCHC 32.6 RDW 15.3 H Plt Count 186 MPV 9.1 Neut # 5.0 Lymph # 2.1 Mccreary # 0.7 Eos # 0.4 Baso # 0.1 Absolute Nucleated RBC 0.00 Nucleated RBC % 0.0 Sodium 138 Potassium 3.9 Chloride 100 L Carbon Dioxide 28 Anion Gap 10.0 BUN 26 H Creatinine 1.0 Estimated GFR (MDRD) 53 L Glucose 92 Calcium 9.9 Magnesium 1.6 L Total Bilirubin 0.5 AST 42 ALT 25 Alkaline Phosphatase 72 Total Protein 7.9 Albumin 4.6 Globulin 3.3 Albumin/Globulin Ratio 1.4 Lipase 37 - Rads (name of study) head CT Radiology: Prelim report reviewed (no acute process), EMP read contemporaneously PD MEDICAL DECISION MAKING - ED course Complexity details: reviewed results, considered differential (concern for CVA, though likely more lacune at internal capsule or such with just numbness and not weakness. Presume not main vessel. Consider other causes such as MS. Does not sound metabolic with it left sided. ), d/w patient, d/w family Departure - Departure Disposition: 66 [facility] DC/Xfer Clinical Impression: Stroke-like symptoms, Left sided numbness Condition: Stable Record reviewed to determine appropriate education?: Yes
[2017-08-08 17:00] LABS: BASOPHILS # (AUTO) 0.1 10^3/uL (0.0-0.1); BASOPHILS % (AUTO) 1.3 %; EOSINOPHILS # (AUTO) 0.4 10^3/uL (0.0-0.7); EOSINOPHILS % (AUTO) 4.9 %; HGB - HEMOGLOBIN 12.6 g/dL (12.0-16.0); LYMPHOCYTES # (AUTO) 2.1 10^3/uL (1.5-3.5); LYMPHOCYTES % (AUTO) 25.9 %; MEAN CORPUSCULAR HEMOGLOBIN 29.3 pg (27.0-31.0); MEAN CORPUSCULAR HGB CONC 32.6 g/dL (32.0-36.0); MEAN CORPUSCULAR VOLUME 89.7 fL (81.0-99.0); MEAN PLATELET VOLUME 9.1 fL (7.9-10.8); MONOCYTES # (AUTO) 0.7 10^3/uL (0.0-1.0); MONOCYTES % (AUTO) 7.9 %; PLT - PLATELET COUNT 186 10^3/uL (130-450); RED BLOOD COUNT 4.31 10^6/uL (4.20-5.40); RED CELL DISTRIBUTION WIDTH 15.3 % (12.0-15.0); WHITE BLOOD COUNT 8.3 x10^3/uL (4.8-10.8)
--- NOTE | 2017-08-08 17:05 | CT Report ---
EXAM: CT HEAD EXAM DATE: 08/08/2017 04:46 PM. CLINICAL HISTORY: Left arm and face numbness since 1-2 pm. COMPARISON: 05/06/2011. TECHNIQUE: Multiaxial CT images were obtained from the foramen magnum to the vertex. Reformats: Coron al. IV contrast: None. In accordance with CT protocol optimization, one or more of the following dose reduction techniques w ere utilized for this exam: automated exposure control, adjustment of mA and/or KV based on patient s ize, or use of iterative reconstructive technique. FINDINGS: Parenchyma: No intraparenchymal hemorrhage. No evidence of mass, midline shift, or CT findings of inf arction. Silva-white differentiation is distinct. Extraaxial Spaces: Normal for age. No subdural or epidural collections identified. Ventricles: Normal in size and position. Sinuses and Orbits: Imaged paranasal sinuses, orbits, and mastoids show no significant abnormality. Bones: No evidence of fracture or calvarial defect. Other: None. IMPRESSION: Negative for an acute or focal intracranial abnormality. [facility] Referring Provider Line: [phone] SITE ID: [id number]
--- NOTE | 2017-08-08 17:05 | CT Preliminary Report ---
Exam: CT HEAD W/O IMPRESSION: Negative for an acute or focal intracranial abnormality. [facility] SITE ID: [id number]
[2017-08-08 17:07] LABS: ALBUMIN 4.6 g/dL (3.2-5.5); ALBUMIN/GLOBULIN RATIO 1.4 (1.0-2.2); BILIRUBIN,TOTAL 0.5 mg/dL (0.2-1.0); CALCIUM 9.9 mg/dL (8.5-10.3); MAGNESIUM 1.6 mg/dL (1.7-2.8); TOTAL PROTEIN 7.9 g/dL (6.7-8.2)
[2017-08-08] MEDS ORDERED: ASPIRIN CHEW 81 MG TABLET PO STA (17:44)
[2017-08-08] MEDS ORDERED: TEMAZEPAM 15 MG CAPSULE PO PRN (19:20)
[2017-08-08] MEDS ORDERED: SODIUM CHLORIDE FLUSH 0.9% 10 ML SYRINGE IVP PRN (19:20)
[2017-08-08] MEDS: MONTELUKAST 10 MG TABLET PO SCH (21:10)
[2017-08-08] MEDS: AMOX/CLAV 500 MG/125 MG TABLET PO SCH (21:10)
[2017-08-08] MEDS: SODIUM CHLORIDE FLUSH 0.9% 10 ML SYRINGE IVP SCH (21:11)
--- NOTE | 2017-08-08 22:06 | HISTORY & PHYSICAL EXAMINATION ---
DATE OF SERVICE: 08/08/2017 Physician: Kimberly Burris MD HISTORY OF PRESENT ILLNESS: This is an 86-year-old white female with a history of diet-controlled diabetes, hypertension, asthma/COPD, hospitalized here for pneumonia in December 2016, gout, hypothyroidism, chronic bladder infection, macular degeneration, chronic vision and hearing loss, GERD, and hiatal hernia. The patient awoke from a nap this afternoon and noticed left face and left arm numbness without weakness and she presented to the emergency room. The symptom had not yet resolved after 4 hours and she is being admitted for a CVA, TIA versus other etiology of neurologic changes. The patient had similar symptoms 2 days ago that lasted 1 hour and she did not seek medical attention for this. There were no associated palpitations, syncope, chest pain, or shortness of breath. She is compliant with her medications. There is no motor deficit with these complaints or vision, speech or swallowing changes. She thinks she has had a TIA in the past. REVIEW OF SYSTEMS: A comprehensive review of systems was performed and the pertinent positives are above. ALLERGIES: CODEINE. MEDICATIONS 1. Verapamil ER 240 mg daily. 2. Theophylline 300 mg daily. 3. Simvastatin 20 mg daily. 4. Vitamin B6. 5. Vitamin B12. 6. Vitamin D3. 7. Multivitamin. 8. Singulair 10 mg every evening. 9. Lisinopril 5 mg daily. 10. Synthroid 100 mcg daily. 11. HCTZ 12.5 mg daily. 12. Breo Ellipta 1 puff daily. 13. Zithromax 250 mg daily. 14. Aspirin 81 mg daily. 15. Augmentin 500/125 p.o. b.i.d. 16. Allopurinol 300 mg daily. 17. ProAir 1 puff q.4h. p.r.n. 18. Fluticasone unknown dose. 19. Vilanterol unknown dose. FAMILY HISTORY: No inherited diseases. SOCIAL HISTORY: The patient is a nonsmoker, drinks alcohol or uses any illicit drugs. She is independent and active. PHYSICAL EXAMINATION GENERAL: Elderly white female. She has poor dentition. VITAL SIGNS: Blood pressure 145/68, pulse of 75 in sinus rhythm, afebrile, room air saturation 99%. HEENT: Remarkable for moist oral mucosa and poor dentition with many missing teeth. NECK: Without JVD or carotid bruits. CHEST: Clear. HEART: Sounds normal. No murmurs. ABDOMEN: Soft. EXTREMITIES: Without edema. No clubbing or cyanosis. NEUROLOGIC: In the ER she had decreased sensation to light touch, but normal sensation to pinprick in the left upper extremity and left face. Currently, her sensory exam is normal in the left arm and left face. No motor deficit noted. Other cranial nerves intact. LABORATORIES: Normal electrolytes. Normal BUN and creatinine. Magnesium 1.6. Normal liver tests. Normal CBC. No INR was done. No chest x-ray was done. No EKG was done. A head CT was done that was unremarkable. IMPRESSION/DIAGNOSES 1. Possible stroke vs TIA, but also rule out multiple sclerosis or cervical spine abnormality. 2. Diet-controlled diabetes. 3. Hypertension. 4. Hypothyroidism. 5. Asthma/Chronic obstructive pulmonary disease, currently stable. PLAN: Admit the patient to telemetry and evaluate for atrial fibrillation. Obtain an EKG for baseline. Obtain an Echo to rule out a cardiac source of embolus. Obtain carotid Doppler to evaluate for atherosclerosis and potential source of embolism. Obtain a brain MRI and c-spine MRI to evaluate the extent of possible stroke, rule out changes of multiple sclerosis and evaluate for cervical spine degenerative and disk disease. Start the patient on a diabetic diet. Continue with her antihypertensives, thyroid medicine, COPD medicine and chronic UTI medication. Obtain OT and PT consults. DVT PROPHYLAXIS: SCDs, no Lovenox until we are sure she does not have a stroke with hemorrhagic transformation. CODE STATUS: FULL CODE. ATTESTATION: The patient is expected to be discharged within 96 hours or transfer to another facility: Yes. TD: 08/08/2017 20:19 LISA
[2017-08-09] MEDS ORDERED: FLUTICASONE HFA 110 MCG INHALER INH SCH (02:00)
[2017-08-09] MEDS ORDERED: FLUTICASONE NASAL SPRAY NAS ONE (03:23)
[2017-08-09] MEDS: LEVOTHYROXINE 100 MCG TABLET PO SCH (06:04)
[2017-08-09 06:57] LABS: CHOL/HDL RATIO 3.3 (<4.4); CHOLESTEROL 223 mg/dL; HDL CHOLESTEROL 68 mg/dL; LDL CHOLESTEROL,CALCULATED 126 mg/dL; LDL/HDL RATIO 1.9 (<4.4); VLDL CHOLESTEROL 29 mg/dL
[2017-08-09] MEDS: AMOX/CLAV 500 MG/125 MG TABLET PO SCH (08:00)
[2017-08-09] MEDS ORDERED: GADOBUTROL 7.5 MMOL/7.5 ML VIAL ONE (08:40)
[2017-08-09] MEDS ORDERED: NON FORMULARY MED (Simvastatin [Simvastatin] 20 MG) PO SCH (09:00)
[2017-08-09] MEDS ORDERED: AZITHROMYCIN 250 MG TABLET PO SCH (09:00)
[2017-08-09] MEDS: ASPIRIN CHEW 81 MG TABLET PO SCH (10:10)
[2017-08-09] MEDS: VERAPAMIL ER 120 MG TABLET PO SCH (10:10)
[2017-08-09] MEDS: PYRIDOXINE 100 MG TABLET PO SCH (10:10)
[2017-08-09] MEDS: ALLOPURINOL 100 MG TABLET PO SCH (10:11)
[2017-08-09] MEDS: CYANOCOBALAMIN 500 MCG TABLET PO SCH (10:13)
[2017-08-09] MEDS: FAMOTIDINE 20 MG TABLET PO SCH (10:13)
[2017-08-09] MEDS: CHOLECALCIFEROL 5,000 UNIT CAPSULE PO SCH (10:13)
[2017-08-09] MEDS: SODIUM CHLORIDE FLUSH 0.9% 10 ML SYRINGE IVP SCH ×2 (10:14→21:33)
[2017-08-09] MEDS: hydroCHLOROthiazide 25 MG TABLET PO SCH (10:17)
[2017-08-09] MEDS: LISINOPRIL 5 MG TABLET PO SCH (10:22)
[2017-08-09] MEDS: THEOPHYLLINE ER 300 MG TABLET PO SCH (10:22)
[2017-08-09] MEDS: POLYETHYLENE GLYCOL 3350 17 GM PACKET PO SCH (10:24)
[2017-08-09] MEDS ORDERED: diazePAM INJ 5 MG/ML SYRINGE IVP ONE (10:46)
[2017-08-09] MEDS: BUDESONIDE 0.5 MG/2 ML NEB INH SCH ×2 (11:20→19:41)
[2017-08-09] MEDS: IPRATROPIUM/ALBUTEROL 3 ML NEB INH PRN ×2 (11:20→19:41)
--- NOTE | 2017-08-09 12:24 | PROVIDER PROGRESS NOTE ---
Assessment/Plan - Problem List (1) Left sided numbness Assessment/Plan: Testing is pending to R/O CVA vs TIA vs MS vs bulging disc. Brain and c-spine MRI (and patient asking for meds for calsutrophobia), carotid Doppler, Echo are pending to evaluate for a Dx and a source. Lipids are good, but Pt on empiric low dose Lipitor now Continue baby ASA lifelong (she only took it prn for pain before this) PT and OT evaluations pending (2) COPD (chronic obstructive pulmonary disease) Assessment/Plan: Pt is SOB Will add Duonebs prn Will obtain a CXR, since it was not done on admission (3) Pulmonary HTN Assessment/Plan: Echo shows significant pulmonary HTN with PA pressure 62 mmHg. Pt does have asthma and COPD, was a former smoker, none x 40 years. Her home Theophylline will continue Monitor pulmonary status clinically (4) Diabetes mellitus type 2, diet-controlled Assessment/Plan: Continue diet for DM control. (5) Hypothyroidism Assessment/Plan: Continue Synthroid - Current Meds Current Meds: Current Medications Generic Name Dose Route Start Last Admin Trade Name Freq PRN Reason Stop Dose Admin Albuterol/Ipratropium 3 ml 08/09/17 10:46 08/09/17 11:20 Duoneb INH 3 ml Q4HR PRN Administration Wheezing Allopurinol 300 mg 08/09/17 09:00 08/09/17 10:11 Zyloprim PO 300 mg DAILY ALMA ROSA Administration Aspirin 81 mg 08/09/17 09:00 08/09/17 10:10 St Feng Aspirin PO 81 mg DAILY ALMA ROSA Administration Budesonide 0.5 mg 08/09/17 09:00 08/09/17 11:20 Pulmicort INH 0.5 mg RTBID ALMA ROSA Administration Cholecalciferol 5,000 unit 08/09/17 09:00 08/09/17 10:13 Vitamin D3 PO 5,000 unit DAILY ALMA ROSA Administration Cyanocobalamin 500 mcg 08/09/17 09:00 08/09/17 10:13 Vitamin B-12 PO 500 mcg DAILY ALMA ROSA Administration Famotidine 20 mg 08/09/17 09:00 08/09/17 10:13 Pepcid PO 20 mg DAILY ALMA ROSA Administration Hydrochlorothiazide 12.5 mg 08/09/17 09:00 08/09/17 10:17 Hydrodiuril PO 12.5 mg DAILY ALMA ROSA Administration Levothyroxine Sodium 100 mcg 08/09/17 07:00 08/09/17 06:04 Synthroid PO 100 mcg QDAC ALMA ROSA Administration Lisinopril 5 mg 08/09/17 09:00 08/09/17 10:22 Zestril PO 5 mg DAILY ALMA ROSA Administration Montelukast Sodium 10 mg 08/08/17 21:00 08/08/17 21:10 Singulair PO 10 mg QPM ALMA ROSA Administration Polyethylene Glycol 17 gm 08/09/17 09:00 08/09/17 10:24 Miralax PO Not Given DAILY ALMA ROSA Pyridoxine HCl 100 mg 08/09/17 09:00 08/09/17 10:10 Vitamin B-6 PO 100 mg DAILY ALMA ROSA Administration Sodium Chloride 10 ml 08/08/17 19:20 08/09/17 11:16 Normal Saline Flush 0.9% IVP 10 ml PRN PRN Administration NEEDED PER PROVIDER ORDERS Sodium Chloride 10 ml 08/09/17 01:00 08/09/17 10:14 Normal Saline Flush 0.9% IVP 10 ml 0100,0900,1700 ALMA ROSA Administration Theophylline 300 mg 08/09/17 09:00 08/09/17 10:22 Theodur PO 300 mg DAILY ALMA ROSA Administration Verapamil HCl 240 mg 08/09/17 09:00 08/09/17 10:10 Calan Sa PO 240 mg DAILY ALMA ROSA Administration - Lab Result Fish Bone Diagrams: 08/08/17 16:50 08/08/17 16:50 - Additional Planning My Orders: My Active Orders 08/08/17 21:00 Montelukast [Singulair] 10 mg PO QPM 08/09/17 Brain W/WO [MRI] Stat 08/09/17 07:00 Levothyroxine [Synthroid] 100 mcg PO QDAC 08/09/17 09:00 Cervical Spine W/WO [MRI] Routine Allopurinol [Zyloprim] 300 mg PO DAILY Aspirin Chewable [St Feng Aspirin] 81 mg PO DAILY Cholecalciferol [Vitamin D3] 5,000 unit PO DAILY Cyanocobalamin [Vitamin B-12] 500 mcg PO DAILY Lisinopril [Zestril] 5 mg PO DAILY Pyridoxine [Vitamin B-6] 100 mg PO DAILY Theophylline [Theodur] 300 mg PO DAILY Verapamil ER [Calan SA] 240 mg PO DAILY hydroCHLOROthiazide [Hydrodiuril] 12.5 mg PO DAILY 08/09/17 10:00 Carotid Doppler Complete [US] Routine 08/09/17 10:46 Nebulizer/MDI Tx. [RC] QID Ipratropium/Albuterol [Duoneb] 3 ml INH Q4HR PRN 08/09/17 21:00 Atorvastatin [Lipitor] 10 mg PO QPM Subjective - Subjective Nursing Reports: Other (Pt asking for an inhaler treatment) Objective Vital Signs: Vital Signs - 24 hr 08/08/17 08/08/17 08/09/17 19:27 20:14 00:05 Temperature 36.6 C 36.3 C L Heart Rate 75 Heart Rate [ Brachial] Heart Rate [ 67 72 Radial] Respiratory 16 95 H 16 Rate Blood Pressure 145/68 H Blood Pressure 144/61 H 113/56 L [Right Brachial artery] O2 Saturation 99 16 L 95 08/09/17 08/09/17 08/09/17 03:43 07:50 11:20 Temperature 36.4 C L Heart Rate 76 84 Heart Rate [ 78 Brachial] Heart Rate [ Radial] Respiratory 18 22 17 Rate Blood Pressure Blood Pressure 129/58 L [Right Brachial artery] O2 Saturation 94 08/09/17 11:24 Temperature Heart Rate Heart Rate [ 89 Brachial] Heart Rate [ Radial] Respiratory 20 Rate Blood Pressure Blood Pressure 162/77 H [Right Brachial artery] O2 Saturation 89 L Oxygen O2 Source Room air I&O (Last 24 Hrs): Intake and Output Totals x24h 08/07/17 08/08/17 08/09/17 23:59 23:59 23:59 Intake Total 860 Balance 860 General: Other (Somnolent) HEENT: Mucous membr. moist/pink Neck: Supple, No JVD Neuro: Non Focal Cardiovascular: No murmurs Respiratory: Breath sounds nml Abdomen: Soft Extremities: No edema - Results Results: Laboratory Results WBC 8.3 x10^3/uL (4.8-10.8) 08/08/17 16:50 RBC 4.31 10^6/uL (4.20-5.40) 08/08/17 16:50 Hgb 12.6 g/dL (12.0-16.0) 08/08/17 16:50 Hct 38.7 % (37.0-47.0) 08/08/17 16:50 MCV 89.7 fL (81.0-99.0) 08/08/17 16:50 MCH 29.3 pg (27.0-31.0) 08/08/17 16:50 MCHC 32.6 g/dL (32.0-36.0) 08/08/17 16:50 RDW 15.3 % (12.0-15.0) H 08/08/17 16:50 Plt Count 186 10^3/uL (130-450) 08/08/17 16:50 MPV 9.1 fL (7.9-10.8) 08/08/17 16:50 Neut # 5.0 10^3/uL (1.5-6.6) 08/08/17 16:50 Lymph # 2.1 10^3/uL (1.5-3.5) 08/08/17 16:50 [place] # 0.7 10^3/uL (0.0-1.0) 08/08/17 16:50 Eos # 0.4 10^3/uL (0.0-0.7) 08/08/17 16:50 Baso # 0.1 10^3/uL (0.0-0.1) 08/08/17 16:50 Absolute Nucleated RBC 0.00 x10^3/uL 08/08/17 16:50 Nucleated RBC % 0.0 /100WBC 08/08/17 16:50 Sodium 138 mmol/L (135-145) 08/08/17 16:50 Potassium 3.9 mmol/L (3.5-5.0) 08/08/17 16:50 Chloride 100 mmol/L (101-111) L 08/08/17 16:50 Carbon Dioxide 28 mmol/L (21-32) 08/08/17 16:50 Anion Gap 10.0 (6-13) 08/08/17 16:50 BUN 26 mg/dL (6-20) H 08/08/17 16:50 Creatinine 1.0 mg/dL (0.4-1.0) 08/08/17 16:50 Estimated GFR (MDRD) 53 (>89) L 08/08/17 16:50 Glucose 92 mg/dL (70-100) 08/08/17 16:50 Calcium 9.9 mg/dL (8.5-10.3) 08/08/17 16:50 Magnesium 1.6 mg/dL (1.7-2.8) L 08/08/17 16:50 Total Bilirubin 0.5 mg/dL (0.2-1.0) 08/08/17 16:50 AST 42 IU/L (10-42) 08/08/17 16:50 ALT 25 IU/L (10-60) 08/08/17 16:50 Alkaline Phosphatase 72 IU/L (42-121) 08/08/17 16:50 Total Protein 7.9 g/dL (6.7-8.2) 08/08/17 16:50 Albumin 4.6 g/dL (3.2-5.5) 08/08/17 16:50 Globulin 3.3 g/dL (2.1-4.2) 08/08/17 16:50 Albumin/Globulin Ratio 1.4 (1.0-2.2) 08/08/17 16:50 Triglycerides 143 mg/dL (-149) 08/09/17 05:00 Cholesterol 223 mg/dL (-199) H 08/09/17 05:00 LDL Cholesterol, Calc 126 mg/dL (-129) 08/09/17 05:00 VLDL Cholesterol 29 mg/dL 08/09/17 05:00 HDL Cholesterol 68 mg/dL (60-) 08/09/17 05:00 LDL/HDL Ratio 1.9 (<4.4) 08/09/17 05:00 Cholesterol/HDL Ratio 3.3 (<4.4) 08/09/17 05:00 Lipase 37 U/L (22-51) 08/08/17 16:50
--- NOTE | 2017-08-09 14:23 | XRAY Report ---
EXAM: CHEST RADIOGRAPHY EXAM DATE: 08/09/2017 01:55 PM. CLINICAL HISTORY: SOB and desaturations. COMPARISON: 02/14/2017. TECHNIQUE: 1 view. FINDINGS: Lungs/Pleura: Given differences in inspiration and positioning no significant interval change in manager hospitality keara parenchymal opacities most pronounced in the right upper lobe and bilateral lower lobes. No new f ocally confluent consolidation, pneumothorax or effusion. Mediastinum: Within exam limitations, the cardiomediastinal contour is normal. Other: None. IMPRESSION: Stable chronic opacities in the lungs. No focally confluent consolidation. [facility] Referring Provider Line: [phone] SITE ID: [id number]
[2017-08-09] MEDS ORDERED: diazePAM 5 MG TABLET PO ONE (16:39)
--- NOTE | 2017-08-09 17:55 | Ultrasound Preliminary Report ---
Exam: US CAROTID DOPPLER COMPLETE IMPRESSION: Report to follow. Validated velocity measurements with angiographic measurements and velocity criteria are extrapolated from diameter data as defined by the Society of Radiologists in Ultrasound Consensus Conference Radi ology 2003; 229;340-346. [facility] SITE ID: [id number]
--- NOTE | 2017-08-09 18:08 | MRI Preliminary Report ---
Exam: MRI BRAIN W/O Impression: No acute infarct or mass. Repeat imaging when the patient is able to complete all sequences is suggested. SITE ID: [id number]
--- NOTE | 2017-08-09 18:25 | MRI Report ---
EXAM: MRI BRAIN WITHOUT CONTRAST COMPARISON: CT head, 08/08/2017. CLINICAL HISTORY: Cerebral vascular accident versus multiple sclerosis. Left arm/face numbness, now resolved. TECHNIQUE: Multiplanar multisequence imaging is performed through the head without contrast. FINDINGS: Patient was unable to tolerate T2-weighted imaging. Diffusion-weighted imaging shows no acute infarct. Pituitary fossa, clivus and foramen magnum are unremarkable. Examination is inadequate for evaluation of MS, however nothing evident. IMPRESSION: No acute infarct or mass. Repeat imaging when the patient is able to complete all sequences is suggested. Referring Provider Line: [phone] SITE ID: [id number]
--- NOTE | 2017-08-09 18:25 | Ultrasound Report ---
EXAM: CAROTID DOPPLER ULTRASOUND EXAM DATE: 08/09/2017 11:39 AM. CLINICAL HISTORY: Cerebral vascular accident. COMPARISON: None. TECHNIQUE: Real-time sonographic vascular imaging was performed by the legislative analyst through the caroti d arterial system with a linear transducer utilizing color-flow, Doppler flow and spectral analysis. Multiple contracts representative static images were saved for review. FINDINGS: RIGHT: RCCA Prox: PSV 39 cm/sec. RCCA Dist: PSV 36 cm/sec, EDV 6 cm/sec. RECA: PSV 67 cm/sec. R Bulb: PSV 57 cm/sec, EDV 11 cm/sec, ICA/CCA ratio 1.5. PEDRO Prox: PSV 80 cm/sec, EDV 21 cm/sec, ICA/CCA ratio 2.2. PEDRO Mid: PSV 98 cm/sec, EDV 28 cm/sec, ICA/CCA ratio 2.7. PEDRO Dist: PSV 87 cm/sec, EDV 21 cm/sec, ICA/CCA ratio 2.4. RVA: PSV 33 cm/sec. RVA flow direction: Antegrade. LEFT: LCCA Prox: PSV 43 cm/sec. LCCA Dist: PSV 58 cm/sec, EDV 15 cm/sec. LECA: PSV 148 cm/sec. L Bulb: PSV 71 cm/sec, EDV 17 cm/sec, ICA/CCA ratio 1.2. LICA Prox: PSV 128 cm/sec, EDV 21 cm/sec, ICA/CCA ratio 2.2, degree of stenosis 50-69%. LICA Mid: PSV 94 cm/sec, EDV 26 cm/sec, ICA/CCA ratio 1.6. LICA Dist: PSV 94 cm/sec, EDV 30 cm/sec, ICA/CCA ratio 1.6. LVA: PSV 73 cm/sec. LVA flow direction: Antegrade. Mild to moderate calcific plaque seen at the right carotid bulb. Moderate to large amount of calcifie d plaque throughout the left common carotid artery, carotid bulb extending into the proximal internal carotid artery. Limited visualization due to bedside exam, patient positioning, patient breathing and patient body dumont bitus. IMPRESSION: 50-69% stenosis seen at the left proximal internal carotid artery. See above. Validated velocity measurements with angiographic measurements and velocity criteria are extrapolated from diameter data as defined by the Society of Radiologists in Ultrasound Consensus Conference Radi ology 2003; 229;340-346. [facility] Referring Provider Line: [phone] SITE ID: [id number]
[2017-08-09] MEDS ORDERED: ATORVASTATIN 10 MG TABLET PO SCH (21:00)
[2017-08-09] MEDS: MONTELUKAST 10 MG TABLET PO SCH (21:33)
[2017-08-10] MEDS: SODIUM CHLORIDE FLUSH 0.9% 10 ML SYRINGE IVP SCH ×2 (00:31→09:19)
[2017-08-10] MEDS: LEVOTHYROXINE 100 MCG TABLET PO SCH (06:16)
[2017-08-10] MEDS: BUDESONIDE 0.5 MG/2 ML NEB INH SCH (06:21)
[2017-08-10] MEDS: IPRATROPIUM/ALBUTEROL 3 ML NEB INH PRN (06:21)
[2017-08-10 06:32] LABS: PT - PROTHROMBIN TIME 11.7 secs (9.9-12.6)
[2017-08-10] MEDS: PYRIDOXINE 100 MG TABLET PO SCH (09:16)
[2017-08-10] MEDS: VERAPAMIL ER 120 MG TABLET PO SCH (09:16)
[2017-08-10] MEDS: ALLOPURINOL 100 MG TABLET PO SCH (09:16)
[2017-08-10] MEDS: CHOLECALCIFEROL 5,000 UNIT CAPSULE PO SCH (09:17)
[2017-08-10] MEDS: FAMOTIDINE 20 MG TABLET PO SCH (09:17)
[2017-08-10] MEDS: LISINOPRIL 5 MG TABLET PO SCH (09:17)
[2017-08-10] MEDS: ASPIRIN CHEW 81 MG TABLET PO SCH (09:17)
[2017-08-10] MEDS: hydroCHLOROthiazide 25 MG TABLET PO SCH (09:17)
[2017-08-10] MEDS: CYANOCOBALAMIN 500 MCG TABLET PO SCH (09:17)
[2017-08-10] MEDS: POLYETHYLENE GLYCOL 3350 17 GM PACKET PO SCH (09:19)
[2017-08-10] MEDS: THEOPHYLLINE ER 300 MG TABLET PO SCH (09:23)
--- NOTE | 2017-08-10 11:48 | Discharge Plan ---
Discharge Plan Disposition: 01 Home, Self Care Condition: Stable Diet: Diabetic Activity Restrictions: Activity as Tolerated Shower Restrictions: No Driving Restrictions: No Additional Instructions or Follow Up instructions: Resume all your pre-hospital medications. Start taking 1 baby aspirin daily, for stroke prevention. See your PCP in 7-10 days for further testing and management of the left sided face and arm numbness. No Smoking: If you smoke, Please STOP! Call for help. Follow-up with: Laura Mccabe MD [Primary Care Provider] -
[2017-08-10 12:08] VITALS: BP 130/69
--- NOTE | 2017-08-14 08:08 | DISCHARGE SUMMARY ---
Physician: Kimberly Burris MD DATE OF ADMISSION: 08/08/2017 DATE OF DISCHARGE: 08/10/2017 HISTORY OF PRESENT ILLNESS: This is an 86-year-old white female with history of diet-controlled diabetes, hypertension, asthma/COPD, status post pneumonia in December 2016, history of gout, hypothyroidism, GERD, and hiatal hernia. The patient presented with left arm and face numbness that lasted several hours. She had similar symptoms the day previously that lasted 1 hour that she did not seek medical attention for. At this emergency room visit, CT scan was done that was unremarkable. Her symptoms started to wax and wane and she was admitted for workup of CVA versus TIA and etiology of these changes. HOSPITAL COURSE/DISCHARGE DIAGNOSES 1. Face and arm numbness. The patient had a portion of a brain MRI (she had claustrophobia and difficulty completing the testing), which showed no evidence of a stroke. The plan was to also evaluate for C-spine abnormality, such as bulging disk. However, she could not undergo this imaging. The etiology of the left face and left arm numbness was not finalized, but she had no symptoms for approximately 24 hours at the time of discharge . 2. Peripheral vascular disease, carotid. The patient underwent testing for source of embolus for potential stroke diagnosis, and imaging of the carotid arteries with Doppler showed 50% to 69% stenosis of the left proximal internal carotid artery. The patient was advised to start taking baby aspirin daily for this diagnosis. 3. Diet-controlled diabetes. The patient had glucoses of 92-100 with only a carbohydrate controlled diet ordered. Her lipid test showed an LDL of 126, triglycerides of 143. No statin was ordered due to her advanced age, but could be considered for use. 4. Pulmonary hypertension. An Echo was done as part of the routine workup and this showed normal LV size and contractility, EF 65%, mild LVH is seen. Normal RV size and function. There was trace mitral regurgitation and mild tricuspid regurgitation with calculated PA pressure of 61 mmHg. This may be a sequela of her history of chronic obstructive pulmonary disease. 5. Hypothyroidism. The patient was maintained on her thyroid replacement during her course. 6. Claustrophobia. The patient did report severe anxiety during MRI positioning. She required both IV and p.o. Valium, and yet was not able to complete the entire test. 7. COPD/asthma. The patient did report SOB and did request treatment with a alejandra while here. ALLERGIES: CODEINE. DISCHARGE MEDICATIONS AT THE TIME OF DISCHARGE 1. Albuterol p.r.n. 2. Allopurinol 300 daily. 3. Baby aspirin daily. 4. Vitamin D3 daily. 5. Vitamin B12 daily. 6. Ellipta p.r.n. 7. HCTZ 12.5 mg daily. 8. Synthroid 100 mcg daily. 9. Lisinopril 5 mg daily. 10. Singulair 10 mg every evening. 11. Vitamin B6 daily. 12. Simvastatin 20 mg daily. 13. Theophylline 300 mg daily. 14. Verapamil ER 240 mg daily. LABORATORY DATA AND IMAGING: Reviewed and summarized above. PHYSICAL EXAMINATION AT DISCHARGE VITAL SIGNS: Blood pressure 130/70, heart rate 90 in sinus rhythm, afebrile, room air saturation 94%. HEENT: Unremarkable. Her left cheek numbness had resolved. NECK: No audible carotid bruits. No JVD. CHEST: Clear. HEART: Sounds normal. ABDOMEN: Soft, nontender and benign. EXTREMITIES: Without clubbing, cyanosis, or edema. NEUROLOGIC: Grossly intact. FOLLOWUP: With her PCP within 1-2 weeks for further evaluation of the new left arm and left face numbness, consider Neurology evaluation. CODE STATUS: FULL CODE. TIME TO COMPLETE THIS ENTIRE DISCHARGE, CHART REVIEW, MEDICATION REVIEW, AND ORDERS: 30 minutes. TD: 08/13/2017 17:30 MTDD
== END 2017-08-10 12:58 | disposition home or self-care (01) | DRG 93 ==
LOC: ED 15:54 → MS2 19:20
PROVIDERS: ADMIT Internal Medicine; ATTEND Internal Medicine
DX: R20.0 Anesthesia of skin (principal); I11.0 Hypertensive heart disease with heart failure; I50.9 Heart failure, unspecified; E78.00 Pure hypercholesterolemia, unspecified; J43.9 Emphysema, unspecified; I65.22 Occlusion and stenosis of left carotid artery; E11.9 Type 2 diabetes mellitus without complications; I27.23 Pulmonary hypertension due to lung diseases and hypoxia; E03.9 Hypothyroidism, unspecified; J44.9 Chronic obstructive pulmonary disease, unspecified; F40.240 Claustrophobia; I10 Essential (primary) hypertension; M10.9 Gout, unspecified; K21.9 Gastro-esophageal reflux disease without esophagitis; K44.9 Diaphragmatic hernia without obstruction or gangrene; N30.20 Other chronic cystitis without hematuria; Z87.01 Personal history of pneumonia (recurrent); Z79.899 Other long term (current) drug therapy; Z79.82 Long term (current) use of aspirin; Z79.2 Long term (current) use of antibiotics; Z87.891 Personal history of nicotine dependence
CPT/HCPCS: 36415; 70450; 70551; 71045; 80053; 80061; 83690; 83721; 83735; 85025; 85610; 93005; 93306; 93880; 94640; 94664; 99284; 99285

== ENCOUNTER 2017-08-14 16:10 | Observation (INO) | payer MEDICARE, OTHER ==
--- NOTE | 2017-08-14 16:46 | ED Physician Documentation ---
PD HPI CHEST PAIN - Stated complaint Stated Complaint: CHEST PX - Chief complaint Chief Complaint: Cardiac - History obtained from History obtained from: Patient, Family (son) - History of Present Illness Timing - onset: Today (About noon she developed substernal chest pressure radiating to jaw and back assoc with dyspnea. She is a history of diabetes, hypertension, COPD. She was admitted for 5 days and left the hospital very recently for TIA. It does not look like there were any significant findings. She had SCDs during that admission for DVT prophylaxis.) Review of Systems Constitutional: reports: Reviewed and negative Nose: reports: Reviewed and negative Throat: reports: Reviewed and negative Cardiac: reports: Reviewed and negative Respiratory: reports: Reviewed and negative PD PAST MEDICAL HISTORY - Past Medical History Cardiovascular: Congestive heart failure, Hypertension, High cholesterol, Arrhythmia Respiratory: Emphysema, Pneumonia, Shortness of breath Neuro: TIA, Peripheral neuropathy Endocrine/Autoimmune: Type 2 diabetes, HyPOthyroidism GI: GERD, Hiatal hernia CASUAL SHOE INSPECTOR: None : Chronic bladder infection, Nocturia HEENT: Chronic vision loss, Macular degeneration, Chronic hearing loss Psych: Claustrophobia Musculoskeletal: Gout Derm: None - Past Surgical History Past Surgical History: Yes General: Bowel surgery - Present Medications Home Medications: Ambulatory Orders Medication Instructions Recorded Confirmed Cyanocobalamin (Vitamin B-12) 500 mcg PO DAILY 07/26/12 08/09/17 [Vitamin B-12 (500 mcg sublingual)] Hydrochlorothiazide 12.5 mg PO DAILY 07/26/12 08/09/17 Levothyroxine [Synthroid] 100 mcg PO QDAC 07/26/12 08/09/17 Lisinopril [Prinivil] 5 mg PO DAILY 07/26/12 08/09/17 Pyridoxine HCl [Vitamin B-6] 100 mg PO DAILY 07/26/12 08/09/17 Theophylline Anhydrous 300 mg PO DAILY 07/26/12 08/09/17 [Theophylline] Verapamil HCl [Verapamil ER] 240 mg PO DAILY 07/26/12 08/09/17 Montelukast [Singulair] 10 mg PO QPM 06/26/15 08/09/17 Albuterol Sulfate [Proair 2 puffs IH Q4H PRN 12/22/16 08/09/17 Respiclick] Allopurinol 300 mg PO DAILY 12/22/16 08/09/17 Aspirin 81 mg PO DAILY 12/22/16 08/09/17 Cholecalciferol [Vitamin D3] 1,000 unit PO DAILY 12/22/16 08/09/17 Simvastatin 20 mg PO QPM 12/22/16 08/09/17 Fluticasone/Umeclidin/Vilanter 1 each IH DAILY 08/09/17 08/09/17 [Trelegy Ellipta 100-62.5-25] Aspirin Chewable [St Feng 81 mg PO DAILY tablet 08/10/17 Aspirin] - Allergies Allergies/Adverse Reactions: Allergies Allergy/AdvReac Type Severity Reaction Status Date / Time codeine [Codeine] Allergy Intermediate Itching Verified 12/22/16 06:59 - Social History Does the pt smoke?: No Smoking Status: Former smoker Does the pt drink ETOH?: No Does the pt have substance abuse?: No - Immunizations Immunizations are current?: Yes - POLST Patient has POLST: No PD ED PE NORMAL - Vitals Vital signs reviewed: Yes - General General: Alert and oriented X 3, No acute distress - HEENT HEENT: PERRL, EOMI - Neck Neck: Supple, no meningeal sign, No bony TTP - Cardiac Cardiac: Other (Quite tachycardic) - Respiratory Respiratory: No respiratory distress, Clear bilaterally - Abdomen Abdomen: Normal bowel sounds, Soft, Non tender - Back Back: No CVA TTP, No spinal TTP - Derm Derm: Normal color, Warm and dry - Extremities Extremities: No edema, No calf tenderness / cord - Neuro Neuro: Alert and oriented X 3, Normal speech - Psych Psych: Normal mood, Normal affect Results - Vitals Vitals: Vital Signs - 24 hr 08/14/17 08/14/17 08/14/17 16:18 17:02 17:55 Temperature 36.7 C Heart Rate 125 H 119 H 116 H Respiratory 16 18 20 Rate Blood Pressure 127/72 116/58 L 117/72 O2 Saturation 95 93 94 08/14/17 18:39 Temperature Heart Rate 114 H Respiratory 21 Rate Blood Pressure 125/70 O2 Saturation 92 Oxygen O2 Source Room air - EKG (time done) 1622 Rate: Rate (enter#) (123) Rhythm: Sinus tachycardia, LAE [place]: Normal Ischemia: Q waves (inferior). No: ST elevation c/w ischemia Computer interpretation: Agree with computer - Labs Labs: Laboratory Tests 08/14/17 08/14/17 08/14/17 16:30 16:30 16:30 WBC 11.0 H RBC 4.37 Hgb 12.8 Hct 39.5 MCV 90.5 MCH 29.2 MCHC 32.2 RDW 15.4 H Plt Count 220 MPV 8.9 Neut # 8.2 H Lymph # 1.6 [place] # 0.9 Eos # 0.2 Baso # 0.1 Absolute Nucleated RBC 0.00 Nucleated RBC % 0.0 Sodium 136 Potassium 3.9 Chloride 99 L Carbon Dioxide 29 Anion Gap 8.0 BUN 29 H Creatinine 1.2 H Estimated GFR (MDRD) 43 L Glucose 121 H Calcium 9.1 Total Bilirubin 0.9 AST 34 ALT 25 Alkaline Phosphatase 70 Troponin I < 0.04 Total Protein 7.6 Albumin 4.0 Globulin 3.6 Albumin/Globulin Ratio 1.1 Lipase 32 - Rads (name of study) CT PA Radiology: EMP read contemporaneously (No PE, she does have mild cardiac enlargement and extensive coronary artery disease and a moderate hiatal hernia and small pleural effusions.) PD MEDICAL DECISION MAKING - ED course ED course: 86-year-old woman with recent admission for TIA presents with new concerning chest pain, no obvious EKG changes and her initial troponin is negative. She is persistently tachycardic here and given recent admission of course this can raises concern for PE which was tested for by CT and negative for same. Given that she is also on theophylline I sent the level, but that is a send out test. Spoke with Dr. Delaney for observation at 7:19 PM. Departure - Departure Disposition: ED Place in Observation Clinical Impression: Chest pain Qualifiers: Chest pain type: unspecified Qualified Code(s): R07.9 - Chest pain, unspecified Condition: Stable
[2017-08-14 16:50] LABS: BASOPHILS # (AUTO) 0.1 10^3/uL (0.0-0.1); BASOPHILS % (AUTO) 0.6 %; EOSINOPHILS # (AUTO) 0.2 10^3/uL (0.0-0.7); EOSINOPHILS % (AUTO) 1.9 %; HGB - HEMOGLOBIN 12.8 g/dL (12.0-16.0); LYMPHOCYTES # (AUTO) 1.6 10^3/uL (1.5-3.5); LYMPHOCYTES % (AUTO) 14.2 %; MEAN CORPUSCULAR HEMOGLOBIN 29.2 pg (27.0-31.0); MEAN CORPUSCULAR HGB CONC 32.2 g/dL (32.0-36.0); MEAN CORPUSCULAR VOLUME 90.5 fL (81.0-99.0); MEAN PLATELET VOLUME 8.9 fL (7.9-10.8); MONOCYTES # (AUTO) 0.9 10^3/uL (0.0-1.0); MONOCYTES % (AUTO) 8.3 %; NEUTROPHILS # (AUTO) 8.2 10^3/uL (1.5-6.6); PLT - PLATELET COUNT 220 10^3/uL (130-450); RED BLOOD COUNT 4.37 10^6/uL (4.20-5.40); RED CELL DISTRIBUTION WIDTH 15.4 % (12.0-15.0)
[2017-08-14] MEDS ORDERED: IOPAMIDOL-300 100 ML VIAL ONE (16:55)
[2017-08-14 17:06] LABS: ALBUMIN/GLOBULIN RATIO 1.1 (1.0-2.2); BILIRUBIN,TOTAL 0.9 mg/dL (0.2-1.0); CALCIUM 9.1 mg/dL (8.5-10.3); CREATININE 1.2 mg/dL (0.4-1.0); TOTAL PROTEIN 7.6 g/dL (6.7-8.2)
[2017-08-14] MEDS ORDERED: SODIUM CHLORIDE 0.9% 500 ML IV ONE (17:17)
[2017-08-14] MEDS ORDERED: ACETAMINOPHEN 325 MG TABLET PO STA (17:57)
[2017-08-14] MEDS ORDERED: IOPAMIDOL-300 100 ML VIAL IVP ONE (18:02)
--- NOTE | 2017-08-14 19:14 | CT Report ---
EXAM: CT ANGIOGRAM CHEST EXAM DATE: 08/14/2017 05:40 PM. CLINICAL HISTORY: Chest pain, shortness of air, tachycardia. COMPARISON: 08/09/2017. TECHNIQUE: Routine helical imaging was performed through the chest in the pulmonary arterial phase. I V Contrast: 60 mL Isovue-300. Reconstructions: Coronal 3-D MIP reconstructions.Sagittal and coronal. In accordance with CT protocol optimization, one or more of the following dose reduction techniques w ere utilized for this exam: automated exposure control, adjustment of mA and/or KV based on patient s ize, or use of iterative reconstructive technique. FINDINGS: Pulmonary Arteries: Diagnostic quality: Adequate through the segmental arteries. No evidence for acute or chronic pulmona ry emboli. RV/LV is within normal limits. There is no interventricular septal bowing. There is no reflux of cont rast material in the IVC. Lungs/Pleura: No pneumothorax. Trace right and small left pleural effusion is noted. No concerning richard ng mass or nodule. Subtle groundglass opacities are present in the right upper lobe. Subpleural retic ulation and mild nodular thickening of the pleura in the right major fissure are noted. These appear chronic and likely represent chronic interstitial process. Mild atelectasis at the bases. Mediastinum: No cardiac enlargement, pericardial effusion or adenopathy. Extensive coronary artery ca lcifications are noted. Thoracic Aorta: No aneurysm or dissection. Diffuse atheromatous calcified and noncalcified plaques ar e noted. Thoracic aorta is ectatic. Upper Abdomen: Incidental moderate hiatal hernia noted. Mild thickening of the esophagus in the lower thorax. Incidental splenic calcifications are present. Mild nodular thickening of both adrenal gland s without a focal mass. Otherwise, upper abdomen is unremarkable. Other: No supraclavicular or axillary adenopathy. 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 Patient is kyphotic. Multilevel diffuse degenerative disk disease is present. No osteoblastic or os teolytic lesions. Convex to the right curvature of the thoracolumbar junction noted. IMPRESSION: 1. Normal pulmonary CT angiogram. No pulmonary emboli. 2. Mild cardiac enlargement. Extensive coronary artery calcifications. No adenopathy or pericardial e ffusion. 3. Moderate hiatal hernia with mild thickening of the lower esophagus could be secondary to esophagit is. Correlate clinically. 4. Small left and trace right pleural effusion. Bilateral lower lobe atelectasis. Chronic interstitia l lung changes are noted bilaterally. [facility] Referring Provider Line: [phone] SITE ID: [id number]
[2017-08-14] MEDS ORDERED: NITROGLYCERIN SL 0.4 MG TABLET SL PRN (19:21)
[2017-08-14] MEDS ORDERED: MORPHINE 2 MG/ML SYRINGE IVP PRN (19:21)
[2017-08-14] MEDS ORDERED: SODIUM CHLORIDE FLUSH 0.9% 10 ML SYRINGE IVP PRN (19:21)
[2017-08-14] MEDS ORDERED: ONDANSETRON 4 MG/2 ML VIAL IVP PRN (19:21)
[2017-08-14] MEDS ORDERED: PROMETHAZINE 25 MG/1 ML VIAL IM PRN (19:21)
[2017-08-14] MEDS ORDERED: oxyCODONE 5 MG TABLET PO PRN (19:21)
[2017-08-14] MEDS ORDERED: PROCHLORPERAZINE 10 MG/2 ML VIAL IVP PRN (19:21)
[2017-08-14] MEDS ORDERED: ACETAMINOPHEN 325 MG TABLET PO PRN (19:21)
[2017-08-14] MEDS ORDERED: ZOLPIDEM 5 MG TABLET PO PRN (19:21)
--- NOTE | 2017-08-14 19:31 | HISTORY & PHYSICAL EXAMINATION ---
Chief Complaint - Chief Complaint Chief Complaint: Chest pain History of Present Illness - Admitted From Admitted From:: Emergency Department - History Obtained From Records Reviewed: Yes History obtained from: Patient Exam Limitations: None - History of Present Illness HPI Comment/Other: Patient is an 86-year-old female with a past medical history significant for asthma, diet-controlled diabetes, hypertension, hypothyroidism, hyperlipidemia, peripheral neuropathy and recent TIA who presents to the emergency department with a chief complaint of chest pain. The patient states that she was in her normal state of health and then this evening while she was at rest she developed substernal chest pain. She describes the pain as pressure-like and about a 7 out of 10. She states that the pain radiated up her jaw and into her back. She states that she did have some associated shortness of air. She denies having any nausea or diaphoresis. She states that the pain was persistent but did ease once she came into the emergency department. The patient states that she does occasionally get chest pain when she has flareups of her asthma but she states that this was different and she thought she might be having a heart attack. She did not take anything for the pain and she states that it got better on its own in the emergency department. Patient denies any headaches, blurred vision, runny nose, sore throat, nasal congestion, difficulty swallowing, orthopnea, PND, increased lower extremity swelling, cough, fevers, chills, nominal pain, vomiting, diarrhea, constipation , dysuria, increased urinary frequency, joint swelling, joint aches, muscle aches, back pain, neck stiffness, recent unintentional weight loss, changes in her appetite, night sweats or any focal neurologic deficits. On presentation to the emergency department the patient was afebrile but she was tachycardic in the 120s with normal blood pressure and not in any respiratory distress. While she was in the emergency department she remained tachycardic with heart rate between 110 and 115. The patient underwent routine lab work which showed mild leukocytosis of 11.0 and a mild elevation in creatinine up to 1.2. The patient's urinalysis was negative. The patient did undergo a EKG which showed sinus tachycardia with Q waves in the inferior leads but no ST elevations or acute ischemic changes were noted. The patient's troponin was less than 0.04. Given the patient's persistent tachycardia and complaint of shortness of breath and chest pain the patient underwent a CT angiogram of her chest which showed no pulmonary emboli. There was however mild cardiac enlargement with extensive coronary artery calcification. There was also finding of a moderate hiatal hernia with mild thickening of the lower esophagus likely secondary to esophagitis. The patient was placed in observation for chest pain and rule out of acute coronary syndrome. Patient will get serial troponins and a stress test in the morning. History - Past Medical History Cardiovascular: reports: Hypertension, High cholesterol Respiratory: reports: Asthma, COPD, Emphysema, Pneumonia, Shortness of breath Neuro: reports: TIA, Peripheral neuropathy Endocrine/Autoimmune: reports: Type 2 diabetes, HyPOthyroidism GI: reports: GERD, Hiatal hernia FITNESS TRAINER: reports: None : reports: Chronic bladder infection, Nocturia HEENT: reports: Chronic vision loss, Macular degeneration, Chronic hearing loss Psych: reports: Claustrophobia Musculoskeletal: reports: Osteoarthritis, Gout Derm: reports: None MRSA Hx?: No - Past Surgical History General: reports: Bowel surgery - Family & Social History Family History: Mother: , CAD, Father: , Cancer (Dad had leukemia), Sister: CAD, Brother: [place] Living arrangement: At home Living Situation: With family Social History Notes: The patient lives in [place] with her son. She is and was to her for 42 years before he many years ago now. She has 3 children 1 of whom . She is retired. She still is able to do all of her activities of daily living independently. She uses a cane and walker to get around at home but is still ambulatory. She quit smoking in 1975 prior to that she smoked a half a pack a day for about 27 years. She denies any alcohol use or any illicit drug use. - POLST Patient has POLST: No POLST Status: DNR Meds/Allgy - Home Medications Home Medications: Ambulatory Orders Medication Instructions Recorded Confirmed Cyanocobalamin (Vitamin B-12) 500 mcg PO DAILY 07/26/12 08/09/17 [Vitamin B-12 (500 mcg sublingual)] Hydrochlorothiazide 12.5 mg PO DAILY 07/26/12 08/09/17 Levothyroxine [Synthroid] 100 mcg PO QDAC 07/26/12 08/09/17 Lisinopril [Prinivil] 5 mg PO DAILY 07/26/12 08/09/17 Pyridoxine HCl [Vitamin B-6] 100 mg PO DAILY 07/26/12 08/09/17 Theophylline Anhydrous 300 mg PO DAILY 07/26/12 08/09/17 [Theophylline] Verapamil HCl [Verapamil ER] 240 mg PO DAILY 07/26/12 08/09/17 Montelukast [Singulair] 10 mg PO QPM 06/26/15 08/09/17 Albuterol Sulfate [Proair 2 puffs IH Q4H PRN 12/22/16 08/09/17 Respiclick] Allopurinol 300 mg PO DAILY 12/22/16 08/09/17 Aspirin 81 mg PO DAILY 12/22/16 08/09/17 Cholecalciferol [Vitamin D3] 1,000 unit PO DAILY 12/22/16 08/09/17 Simvastatin 20 mg PO QPM 12/22/16 08/09/17 Fluticasone/Umeclidin/Vilanter 1 each IH DAILY 08/09/17 08/09/17 [Trelegy Ellipta 100-62.5-25] Aspirin Chewable [St Feng 81 mg PO DAILY tablet 08/10/17 Aspirin] - Allergies Allergies/Adverse Reactions: Allergies Allergy/AdvReac Type Severity Reaction Status Date / Time codeine [Codeine] Allergy Intermediate Itching Verified 12/22/16 06:59 Review of Systems - Other Findings Other Findings: A comprehensive review of systems was performed the pertinent positives and negatives are stated above in the HPI and the remainder of the review of systems is negative. Exam - Vital Signs Vital Signs: Vital Signs x48h Temp Pulse Resp BP Pulse Ox 08/14/17 18:39 114 H 21 125/70 92 08/14/17 17:55 116 H 20 117/72 94 08/14/17 17:02 119 H 18 116/58 L 93 08/14/17 16:18 36.7 C 125 H 16 127/72 95 - Physical Exam General Appearance: positive: No acute distress, Alert, Other (She is a thin elderly female) Eyes Bilateral: positive: Normal inspection, PERRL, EOMI, No lid inflammation, Conjunctivae nml, No scleral icterus ENT: positive: ENT inspection nml, Pharynx nml, Dry mucous membranes. negative : Purulent nasal drainage, Pharyngeal erythema, Oral lesions Neck: positive: Nml inspection, Thyroid nml, No JVD, Trachea midline. negative : Thyromegaly, Lymphadenopathy (R), Lymphadenopathy (L), Stiff neck, Carotid bruit, Tracheal deviation Respiratory: positive: Chest non-tender, No respiratory distress, Wheezes ( Scattered), Other (Patient has bowel sounds in the lower airways) Cardiovascular: positive: No murmur, No gallop, Tachycardia Peripheral Pulses: positive: 2+ Abdomen: positive: Non-tender, No organomegaly, Nml bowel sounds, No distention. negative: Guarding, Rebound, Hepatomegaly Back: positive: Nml inspection. negative: CVA tenderness (R), CVA tenderness (L ) Skin: positive: Color nml, No rash, Warm. negative: Cyanosis, Diaphoresis, Pallor, Skin rash Extremities: positive: Non-tender, Full ROM, Nml appearance, No pedal edema Neurologic/Psychiatric: positive: Oriented x3, CN's nml (2-12), Motor nml, Sensation nml, Mood/affect nml Conclusion/Plan - Problem List (1) Chest pain Conclusion/Plan: Patient presented with sudden onset substernal chest pain with radiation to her jaw back along with associated shortness of breath. The pain was persistent. The patient has risk factors of hypertension, diabetes, age and hyperlipidemia. On presentation she was tachycardic with sinus tachycardia. Patient's initial EKG and troponin were negative. Patient underwent CT angiogram of the chest which showed no pulmonary embolism but did show coronary calcifications. The patient has been placed in observation for rule out of acute coronary syndrome. Plan: Serial troponins 3 Telemetry monitoring Myocardial perfusion imaging with stress in the a.m. N.p.o. for stress test Aspirin and Lipitor Lipid profile in the a.m. Qualifiers: Chest pain type: unspecified Qualified Code(s): R07.9 - Chest pain, unspecified (2) Hypertension Conclusion/Plan: Patient has a history of hypertension and is on multiple antihypertensive medications at home including lisinopril hydrochlorothiazide and verapamil. The patient's blood pressure on presentation is well controlled. We will continue her home medications while she is hospitalized and monitor her blood pressure. Qualifiers: Hypertension type: essential hypertension Qualified Code(s): I10 - Essential (primary) hypertension (3) Hyperlipidemia Conclusion/Plan: Patient has history of hyperlipidemia and uses a statin at home. Given her presentation with chest pain we will continue her on statin putting her on Lipitor 80 mg while she is hospitalized. Otherwise she appears to be stable. We will check a lipid profile. Qualifiers: Hyperlipidemia type: unspecified Qualified Code(s): E78.5 - Hyperlipidemia , unspecified (4) Asthma Conclusion/Plan: Patient does have asthma and uses inhalers at home. Currently the patient does have some scattered wheezes but does not appear to have an asthma exacerbation. We will place her on albuterol nebulizer while she is hospitalized here. She will also be continued on her Singulair. We will hold the patient's theophylline given her tachycardia and get a theophylline level. Qualifiers: Asthma severity: moderate (5) Diabetes mellitus Conclusion/Plan: Patient is a history of diabetes which is diet controlled. At this point we will place the patient on a diabetic diet and check a hemoglobin A1c. If the A1c is elevated we will consider putting her on sliding scale of insulin. Qualifiers: Diabetes mellitus type: type 2 (6) Hypothyroidism Conclusion/Plan: Patient is on Synthroid at home and appears to be stable at this time. We will continue her home dose of Synthroid and check a TSH while she is hospitalized. Qualifiers: Hypothyroidism type: unspecified Qualified Code(s): E03.9 - Hypothyroidism , unspecified - Lab Results Lab results reviewed: Yes Fish Bones: 08/14/17 16:30 08/14/17 16:30 Other Lab Results: Laboratory Results WBC 11.0 x10^3/uL (4.8-10.8) H 08/14/17 16:30 RBC 4.37 10^6/uL (4.20-5.40) 08/14/17 16:30 Hgb 12.8 g/dL (12.0-16.0) 08/14/17 16:30 Hct 39.5 % (37.0-47.0) 08/14/17 16:30 MCV 90.5 fL (81.0-99.0) 08/14/17 16:30 MCH 29.2 pg (27.0-31.0) 08/14/17 16:30 MCHC 32.2 g/dL (32.0-36.0) 08/14/17 16:30 RDW 15.4 % (12.0-15.0) H 08/14/17 16:30 Plt Count 220 10^3/uL (130-450) 08/14/17 16:30 MPV 8.9 fL (7.9-10.8) 08/14/17 16:30 Neut # 8.2 10^3/uL (1.5-6.6) H 08/14/17 16:30 Lymph # 1.6 10^3/uL (1.5-3.5) 08/14/17 16:30 [place] # 0.9 10^3/uL (0.0-1.0) 08/14/17 16:30 Eos # 0.2 10^3/uL (0.0-0.7) 08/14/17 16:30 Baso # 0.1 10^3/uL (0.0-0.1) 08/14/17 16:30 Absolute Nucleated RBC 0.00 x10^3/uL 08/14/17 16:30 Nucleated RBC % 0.0 /100WBC 08/14/17 16:30 Sodium 136 mmol/L (135-145) 08/14/17 16:30 Potassium 3.9 mmol/L (3.5-5.0) 08/14/17 16:30 Chloride 99 mmol/L (101-111) L 08/14/17 16:30 Carbon Dioxide 29 mmol/L (21-32) 08/14/17 16:30 Anion Gap 8.0 (6-13) 08/14/17 16:30 BUN 29 mg/dL (6-20) H 08/14/17 16:30 Creatinine 1.2 mg/dL (0.4-1.0) H 08/14/17 16:30 Estimated GFR (MDRD) 43 (>89) L 08/14/17 16:30 Glucose 121 mg/dL (70-100) H 08/14/17 16:30 Calcium 9.1 mg/dL (8.5-10.3) 08/14/17 16:30 Total Bilirubin 0.9 mg/dL (0.2-1.0) 08/14/17 16:30 AST 34 IU/L (10-42) 08/14/17 16:30 ALT 25 IU/L (10-60) 08/14/17 16:30 Alkaline Phosphatase 70 IU/L (42-121) 08/14/17 16:30 Troponin I < 0.04 ng/mL (<0.49) 08/14/17 16:30 Total Protein 7.6 g/dL (6.7-8.2) 08/14/17 16:30 Albumin 4.0 g/dL (3.2-5.5) 08/14/17 16:30 Globulin 3.6 g/dL (2.1-4.2) 08/14/17 16:30 Albumin/Globulin Ratio 1.1 (1.0-2.2) 08/14/17 16:30 Lipase 32 U/L (22-51) 08/14/17 16:30 - Diagnostic Imaging Results Diagnostic Imaging Results: positive: Final report reviewed Diagnostic Imaging Results Comments: CT angiogram chest Impression: 1. Normal pulmonary CT angiogram. No pulmonary emboli. 2. Mild cardiac enlargement. Extensive coronary artery calcification. No adenopathy or pericardial effusion. 3. Moderate hiatal hernia with mild thickening of lower esophagus could be secondary to esophagitis. Correlate clinically. 4. Small left and trace right pleural effusion. Bilateral lower lobe atelectasis. Chronic interstitial lung changes are noted bilaterally. - EKG Results EKG Interpreted Independently: Yes EKG Findings: Q waves in the inferior leads otherwise no ST elevations or acute ischemic changes. Sinus tachycardia Core Measures - Anticipated LOS I expect patient to be DC'd or transferred within 96 hours.: Yes - DVT/VTE - Prophylaxis VTE/DVT Prophylaxis med ordered at admit?: Yes
[2017-08-14] MEDS ORDERED: ATORVASTATIN 40 MG TABLET PO SCH (21:00)
[2017-08-14] MEDS ORDERED: MONTELUKAST 10 MG TABLET PO SCH (21:00)
[2017-08-14 21:15] LABS: BILIRUBIN,URINE NEGATIVE (NEGATIVE); GLUCOSE, URINE (UA) NEGATIVE (NEGATIVE); KETONES,URINE (UA) NEGATIVE (NEGATIVE); LEUKOCYTE ESTERASE, URINE NEGATIVE (NEGATIVE); NITRITE,URINE NEGATIVE (NEGATIVE); OCCULT BLOOD,URINE NEGATIVE (NEGATIVE); PH,URINE 6.5 PH (5.0-7.5); PROTEIN,URINE NEGATIVE (NEGATIVE); UROBILINOGEN,URINE 0.2 (NORMAL) E.U./dL (NORMAL)
[2017-08-14 21:17] LABS: CLARITY,URINE CLEAR (CLEAR)
[2017-08-15] MEDS: ALBUTEROL NEB 2.5 MG/3 ML INH PRN ×4 (00:16→13:22)
[2017-08-15 06:10] LABS: BASOPHILS # (AUTO) 0.1 10^3/uL (0.0-0.1); BASOPHILS % (AUTO) 0.5 %; EOSINOPHILS # (AUTO) 0.1 10^3/uL (0.0-0.7); EOSINOPHILS % (AUTO) 1.4 %; HGB - HEMOGLOBIN 11.9 g/dL (12.0-16.0); LYMPHOCYTES # (AUTO) 2.2 10^3/uL (1.5-3.5); LYMPHOCYTES % (AUTO) 21.5 %; MEAN CORPUSCULAR HEMOGLOBIN 30.2 pg (27.0-31.0); MEAN CORPUSCULAR HGB CONC 33.2 g/dL (32.0-36.0); MEAN CORPUSCULAR VOLUME 90.8 fL (81.0-99.0); MONOCYTES # (AUTO) 1.1 10^3/uL (0.0-1.0); MONOCYTES % (AUTO) 10.9 %; NEUTROPHILS # (AUTO) 6.8 10^3/uL (1.5-6.6); NEUTROPHILS % (AUTO) 65.7 %; PLT - PLATELET COUNT 190 10^3/uL (130-450); RED BLOOD COUNT 3.93 10^6/uL (4.20-5.40); RED CELL DISTRIBUTION WIDTH 15.4 % (12.0-15.0); WHITE BLOOD COUNT 10.3 x10^3/uL (4.8-10.8)
[2017-08-15] MEDS: SODIUM CHLORIDE FLUSH 0.9% 10 ML SYRINGE IVP SCH ×2 (06:19→09:43)
[2017-08-15 06:24] LABS: ALBUMIN 3.5 g/dL (3.2-5.5); ALBUMIN/GLOBULIN RATIO 1.1 (1.0-2.2); ALKALINE PHOSPHATASE 59 IU/L (42-121); ALT ALANINE AMINOTRANSFERASE 21 IU/L (10-60); AST ASPARTATE AMINOTRANSFERASE 26 IU/L (10-42); BUN - BLOOD UREA NITROGEN 29 mg/dL (6-20); CALCIUM 8.8 mg/dL (8.5-10.3); CARBON DIOXIDE - CO2 26 mmol/L (21-32); CHLORIDE 102 mmol/L (101-111); CHOL/HDL RATIO 2.5 (<4.4); CHOLESTEROL 185 mg/dL; CREATININE 1.1 mg/dL (0.4-1.0); GFR - MDRD 47 (>89); GLUCOSE 111 mg/dL (70-100); HDL CHOLESTEROL 74 mg/dL; LDL CHOLESTEROL,CALCULATED 93 mg/dL; LDL/HDL RATIO 1.3 (<4.4); SODIUM 137 mmol/L (135-145); TOTAL PROTEIN 6.8 g/dL (6.7-8.2); VLDL CHOLESTEROL 18 mg/dL
[2017-08-15] MEDS ORDERED: LEVOTHYROXINE 100 MCG TABLET PO SCH (07:00)
[2017-08-15 07:32] LABS: HEMOGLOBIN A1C 0.54 g/dL
[2017-08-15 08:06] VITALS: BP 116/54
[2017-08-15] MEDS ORDERED: ENOXAPARIN 40 MG/0.4 ML SYRINGE SUBQ SCH (09:00)
[2017-08-15] MEDS ORDERED: LISINOPRIL 5 MG TABLET PO SCH (09:00)
[2017-08-15] MEDS ORDERED: POLYETHYLENE GLYCOL 3350 17 GM PACKET PO SCH (09:00)
[2017-08-15] MEDS ORDERED: hydroCHLOROthiazide 25 MG TABLET PO SCH (09:00)
[2017-08-15] MEDS ORDERED: FAMOTIDINE 20 MG TABLET PO SCH (09:00)
[2017-08-15] MEDS ORDERED: ASPIRIN CHEW 81 MG TABLET PO SCH (09:00)
[2017-08-15] MEDS ORDERED: VERAPAMIL ER 120 MG TABLET PO SCH (09:00)
[2017-08-15] MEDS ORDERED: REGADENOSON 0.4 MG/5 ML SYRINGE IVP ONE ×2 (11:08→13:25)
--- NOTE | 2017-08-15 14:03 | Nuclear Medicine Prelim Report ---
Exam: NM MYOCARDIAL PERFUSION STR/RST IMPRESSION: 1. No scintigraphic findings to indicate myocardial ischemia. Negative for infarct. 2. Normal left ventricular ejection fraction of 88%. 3. Normal segmental and global wall motion. 4. Normal left ventricular cavity size, no change with stress. [facility] SITE ID: [id number]
--- NOTE | 2017-08-15 14:06 | Discharge Plan ---
Discharge Plan Disposition: 01 Home, Self Care Condition: Stable Diet: Regular Activity Restrictions: Activity as Tolerated Shower Restrictions: No Driving Restrictions: Yes (no driving) Additional Instructions or Follow Up instructions: You were placed in observation here at the hospital because of chest pain. We did blood work to make sure there was no damage to your heart muscle indicating that you are having a heart attack. All of your blood work was negative. Your EKGs were stable. We then did a stress test to make sure that your heart was doing well at rest and with stress. The radiology imaging of your heart under stress turned out quite normal. At this time we are not changing any of your medications. Please follow-up with your primary care provider, Dr. Laura Mccabe , to see if there is any other things that need to be done to figure out why you are having chest pain. See him in the next 1-2 weeks. I did call your son to let him know that your thyoid hormone level is very low. Please make sure you are taking your medicine on an empty stomach and have Dr. Mccabe recheck the TSH. No Smoking: If you smoke, Please STOP! Call for help. Follow-up with: Laura Mccabe MD [Primary Care Provider] -
--- NOTE | 2017-08-15 14:08 | Nuclear Medicine Report ---
EXAM: SINGLE-ISOTOPE PHARMACOLOGICAL STRESS TEST WITH REGADENOSON. SINGLE-ISOTOPE AND SAME-DAY REST/STRESS MYOCARDIAL PERFUSION SCANS WITH TOMOGRAPHIC IMAGING, QUANTITATIVE ANALYSIS, WALL MOTION ANALYSIS AND CALCULATION OF EJECTION FRACTION. EXAM DATE: 08/15/2017 01:33 PM. CLINICAL HISTORY: Chest pain. COMPARISON: Prior CTA chest 08/14/2017. TECHNIQUE: Following the intravenous administration of 10.3 mCi of Tc-99m sestamibi, a rest myocardia l perfusion scan was done with tomography. Motion correction was applied when appropriate. After a delay of several hours on the same day, a pharmacological stress was performed with the infus ion of 0.4 mg of Lexiscan. According to protocol, 39 mCi of Tc-99m sestamibi was injected for stress myocardial perfusion scan. Stress myocardial perfusion was done with tomography without attenuation c orrection. Motion correction was applied when appropriate. Gated tomographic images were obtained for wall motion analysis and computation of left ventricular e jection fraction. FINDINGS: The resting heart rate was 90 bpm, rising to 132 bpm at maximum. EKG report provided, with no reported acute ischemia. There is no fixed or reversible perfusion defect. Normal left ventricular size. Resting wall motion analysis demonstrates normal wall motion. The cardiac ejection fraction is 88%. IMPRESSION: 1. No scintigraphic findings to indicate myocardial ischemia. Negative for infarct. 2. Normal left ventricular ejection fraction of 88%. 3. Normal segmental and global wall motion. 4. Normal left ventricular cavity size, no change with stress. [facility] Referring Provider Line: [phone] SITE ID: [id number]
--- NOTE | 2017-08-15 19:38 | DISCHARGE SUMMARY ---
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 The patient states that she was in her normal state of health and then this evening while she was at rest she developed substernal chest pain. She describes the pain as pressure-like and about a 7 out of 10. She states that the pain radiated up her jaw and into her back. She states that she did have some associated shortness of air. She denies having any nausea or diaphoresis. She states that the pain was persistent but did ease once she came into the emergency department. The patient states that she does occasionally get chest pain when she has flareups of her asthma but she states that this was different and she thought she might be having a heart attack. She did not take anything for the pain and she states that it got better on its own in the emergency department. Patient denies any headaches, blurred vision, runny nose, sore throat, nasal congestion, difficulty swallowing, orthopnea, PND, increased lower extremity swelling, cough, fevers, chills, nominal pain, vomiting, diarrhea, constipation , dysuria, increased urinary frequency, joint swelling, joint aches, muscle aches, back pain, neck stiffness, recent unintentional weight loss, changes in her appetite, night sweats or any focal neurologic deficits. On presentation to the emergency department the patient was afebrile but she was tachycardic in the 120s with normal blood pressure and not in any respiratory distress. While she was in the emergency department she remained tachycardic with heart rate between 110 and 115. The patient underwent routine lab work which showed mild leukocytosis of 11.0 and a mild elevation in creatinine up to 1.2. The patient's urinalysis was negative. The patient did undergo a EKG which showed sinus tachycardia with Q waves in the inferior leads but no ST elevations or acute ischemic changes were noted. The patient's troponin was less than 0.04. Given the patient's persistent tachycardia and complaint of shortness of breath and chest pain the patient underwent a CT angiogram of her chest which showed no pulmonary emboli. There was however mild cardiac enlargement with extensive coronary artery calcification. There was also finding of a moderate hiatal hernia with mild thickening of the lower esophagus likely secondary to esophagitis. The patient was placed in observation for chest pain and rule out of acute coronary syndrome. Patient will get serial troponins and a stress test in the morning. - CONSULTS | PROCEDURES Procedures: serial troponins negative Lexiscan Stress test: negative for ischemia/resersible defect. No infarcts. EF 88% CT angiogram of chest: negative for PE TSH 78.8 (patients states she is compliant with synthroid) - HOSPITAL COURSE Hospital Course: The patient had no further chest pain. She was eating well. Ambulating in the room. An absolutely delightful personality. Stress test was negative, and troponins were negative. We discussed her TSH levels and she is adamant that she is taking her Synthroid. I would suggest that she follow-up with Dr. Laura Mccabe. She needs to take her medications on her empty stomach. Recheck TSH in 3-4 weeks later. If still high she is going to need her Synthroid dose adjusted. - ALLERGIES Allergies/Adverse Reactions: Allergies Allergy/AdvReac Type Severity Reaction Status Date / Time codeine [Codeine] Allergy Intermediate Itching Verified 12/22/16 06:59 - MEDICATIONS Home Medications: Ambulatory Orders Medication Instructions Recorded Confirmed Cyanocobalamin (Vitamin B-12) 500 mcg PO DAILY 07/26/12 08/15/17 [Vitamin B-12 (500 mcg sublingual)] Hydrochlorothiazide 12.5 mg PO DAILY 07/26/12 08/15/17 Levothyroxine [Synthroid] 100 mcg PO QDAC 07/26/12 08/15/17 Lisinopril [Prinivil] 5 mg PO DAILY 07/26/12 08/15/17 Pyridoxine HCl [Vitamin B-6] 100 mg PO DAILY 07/26/12 08/15/17 Verapamil HCl [Verapamil ER] 240 mg PO DAILY 07/26/12 08/15/17 Montelukast [Singulair] 10 mg PO QPM 06/26/15 08/15/17 Albuterol Sulfate [Proair 2 puffs IH Q4H PRN 12/22/16 08/15/17 Respiclick] Allopurinol 300 mg PO DAILY 12/22/16 08/15/17 Aspirin 81 mg PO DAILY 12/22/16 08/15/17 Simvastatin 20 mg PO QPM 12/22/16 08/15/17 Cholecalciferol [Vitamin D3] 5,000 unit PO DAILY 08/15/17 08/15/17 Furosemide 20 mg PO DAILY 08/15/17 08/15/17 Mometasone/Formoterol [Dulera 100 1 puffs IH BID 08/15/17 08/15/17 Mcg/5 Mcg Inhaler] Potassium Chloride 20 meq PO .QMWF 08/15/17 08/15/17 Theophylline Anhydrous [Carl-24] 300 mg PO DAILY 08/15/17 08/15/17 - PHYSICAL EXAM AT DISCHARGE General Appearance: positive: No acute distress, Alert, Other (Thin, delightful elderly female in no acute distress) Eyes Bilateral: positive: PERRL, EOMI Neck: positive: No JVD Respiratory: positive: Chest non-tender. negative: Wheezes, Rales, Rhonchi Cardiovascular: positive: Regular rate & rhythm, Systolic murmur. negative: Gallop/S4, Friction rub Peripheral Pulses: positive: 1+ Abdomen: positive: Non-tender, No organomegaly, Nml bowel sounds, No distention Extremities: positive: Full ROM, No pedal edema Neurologic/Psychiatric: positive: Oriented x3, CN's nml (2-12), Motor nml - LABS Result Diagrams: 08/15/17 05:34 08/15/17 05:34 - FOLLOW UP Follow Up: With Dr. Laura Mccabe in the next week"
== END 2017-08-15 15:00 | disposition home or self-care (01) ==
LOC: ED 16:10 → OBS 19:21
PROVIDERS: ADMIT Internal Medicine; ATTEND Specialist
DX: R07.2 Precordial pain (principal); I11.9 Hypertensive heart disease without heart failure; I25.10 Atherosclerotic heart disease of native coronary artery without angina pectoris; K44.9 Diaphragmatic hernia without obstruction or gangrene; J43.9 Emphysema, unspecified; J45.40 Moderate persistent asthma, uncomplicated; E11.42 Type 2 diabetes mellitus with diabetic polyneuropathy; E78.5 Hyperlipidemia, unspecified; E03.9 Hypothyroidism, unspecified; K21.9 Gastro-esophageal reflux disease without esophagitis; M10.9 Gout, unspecified; Z86.73 Personal history of transient ischemic attack (TIA), and cerebral infarction without residual deficits; Z79.82 Long term (current) use of aspirin; Z87.891 Personal history of nicotine dependence; Z79.899 Other long term (current) drug therapy; Z87.01 Personal history of pneumonia (recurrent); Z66 Do not resuscitate; Z86.79 Personal history of other diseases of the circulatory system
CPT/HCPCS: 36415; 71275; 78452; 80053; 80061; 81003; 81599; 83036; 83690; 83880; 84443; 84484; 85025; 93005; 93017; 94640; 96360; 99283; 99284; A9270; A9500; G0378; J2785; Q9967; 80198; 81001; 83721; 87086

== ENCOUNTER 2017-08-27 21:27 | Emergency (ER) | payer MEDICARE, OTHER ==
[2017-08-27] MEDS ORDERED: SODIUM CHLORIDE 0.9% 1,000 ML IV ONE (21:50)
[2017-08-27] MEDS ORDERED: ACETAMINOPHEN 325 MG TABLET PO STA (21:50)
[2017-08-27 22:08] LABS: BASOPHILS # (AUTO) 0.1 10^3/uL (0.0-0.1); BASOPHILS % (AUTO) 0.8 %; EOSINOPHILS # (AUTO) 0.2 10^3/uL (0.0-0.7); EOSINOPHILS % (AUTO) 1.7 %; HGB - HEMOGLOBIN 11.3 g/dL (12.0-16.0); LYMPHOCYTES # (AUTO) 1.2 10^3/uL (1.5-3.5); MEAN CORPUSCULAR HEMOGLOBIN 29.4 pg (27.0-31.0); MEAN CORPUSCULAR HGB CONC 32.4 g/dL (32.0-36.0); MEAN CORPUSCULAR VOLUME 90.8 fL (81.0-99.0); MEAN PLATELET VOLUME 7.5 fL (7.9-10.8); MONOCYTES # (AUTO) 0.8 10^3/uL (0.0-1.0); MONOCYTES % (AUTO) 6.7 %; NEUTROPHILS # (AUTO) 8.9 10^3/uL (1.5-6.6); NEUTROPHILS % (AUTO) 79.8 %; PLT - PLATELET COUNT 292 10^3/uL (130-450); RED BLOOD COUNT 3.83 10^6/uL (4.20-5.40); RED CELL DISTRIBUTION WIDTH 14.9 % (12.0-15.0); WHITE BLOOD COUNT 11.2 x10^3/uL (4.8-10.8)
[2017-08-27 22:21] LABS: ALBUMIN 3.2 g/dL (3.2-5.5); ALBUMIN/GLOBULIN RATIO 0.7 (1.0-2.2); BILIRUBIN,TOTAL 0.6 mg/dL (0.2-1.0); CALCIUM 8.5 mg/dL (8.5-10.3); CREATININE 0.9 mg/dL (0.4-1.0); TOTAL PROTEIN 7.8 g/dL (6.7-8.2)
--- NOTE | 2017-08-27 22:55 | XRAY Report ---
Procedure Date: 08/27/2017 Accession Number: [id number] / [id number] Procedure: XR - Chest 2 View X-Ray CPT Code: 58573 FULL RESULT: EXAM: CHEST RADIOGRAPHY EXAM DATE: 08/27/2017 10:28 PM. CLINICAL HISTORY: Fever, tachycardia. COMPARISON: 08/09/2017 chest x-ray. TECHNIQUE: 2 views. FINDINGS: Lungs/Pleura: Again seen are areas of interstitial coarsening with nodular airspace opacities in the right upper and lower lobes. This is similar in appearance to the previous exam. No new airspace disease. No pleural effusion or pneumothorax. Mediastinum: Heart and mediastinal contours are unremarkable. Other: None. IMPRESSION: No significant interval change in nodular right upper and lower lung interstitial infiltrates. No new findings. [facility]
--- NOTE | 2017-08-27 22:58 | ED Physician Documentation ---
PD HPI ABD PAIN - Stated complaint Stated Complaint: RT SIDE PX - Chief complaint Chief Complaint: Abd Pain - History obtained from History obtained from: Patient - History of Present Illness Timing - onset: How many days ago (3) Timing - details: Gradual onset, Still present Quality: Aching Location: RLQ Radiation: Right flank Associated symptoms: No: Fever, Nausea, Vomiting, Chest pain Similar symptoms before: Work up / diagnostics Recently seen: Not recently seen - Additional information Additional information: Patient is an 86 year old female presenting to the emergency department for abdominal pain. Patient states that she has been coughing throughout the week and now she developed some right sided abdominal and back pain from the coughing. patient denies fever, chills, nausea or vomiting. Review of Systems Constitutional: denies: Fever, Chills Cardiac: denies: Chest pain / pressure, Palpitations Respiratory: reports: Cough, Wheezing GI: reports: Abdominal Pain. 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 : Chronic bladder infection, Nocturia HEENT: Chronic vision loss, Macular degeneration, Chronic hearing loss Psych: Claustrophobia Musculoskeletal: Osteoarthritis, Gout Derm: None - Past Surgical History Past Surgical History: Yes General: Bowel surgery HEENT: Cataracts - Present Medications Home Medications: Ambulatory Orders Medication Instructions Recorded Confirmed Cyanocobalamin (Vitamin B-12) 500 mcg PO DAILY 07/26/12 08/15/17 [Vitamin B-12 (500 mcg sublingual)] Hydrochlorothiazide 12.5 mg PO DAILY 07/26/12 08/15/17 Levothyroxine [Synthroid] 100 mcg PO QDAC 07/26/12 08/15/17 Lisinopril [Prinivil] 5 mg PO DAILY 07/26/12 08/15/17 Pyridoxine HCl [Vitamin B-6] 100 mg PO DAILY 07/26/12 08/15/17 Verapamil HCl [Verapamil ER] 240 mg PO DAILY 07/26/12 08/15/17 Montelukast [Singulair] 10 mg PO QPM 06/26/15 08/15/17 Albuterol Sulfate [Proair 2 puffs IH Q4H PRN 12/22/16 08/15/17 Respiclick] Allopurinol 300 mg PO DAILY 12/22/16 08/15/17 Aspirin 81 mg PO DAILY 12/22/16 08/15/17 Simvastatin 20 mg PO QPM 12/22/16 08/15/17 Cholecalciferol [Vitamin D3] 5,000 unit PO DAILY 08/15/17 08/15/17 Furosemide 20 mg PO DAILY 08/15/17 08/15/17 Mometasone/Formoterol [Dulera 100 1 puffs IH BID 08/15/17 08/15/17 Mcg/5 Mcg Inhaler] Potassium Chloride 20 meq PO .QMWF 08/15/17 08/15/17 Theophylline Anhydrous [Carl-24] 300 mg PO DAILY 08/15/17 08/15/17 Benzonatate [Tessalon Perle] 100 mg PO TID #20 capsule 08/28/17 Levofloxacin [Levaquin] 750 mg PO DAILY #4 tablet 08/28/17 - Allergies Allergies/Adverse Reactions: Allergies Allergy/AdvReac Type Severity Reaction Status Date / Time codeine [Codeine] Allergy Intermediate Itching Verified 08/27/17 21:40 - Social History Does the pt smoke?: No Smoking Status: Never smoker Does the pt drink ETOH?: No Does the pt have substance abuse?: No - Immunizations Immunizations are current?: Yes - POLST Patient has POLST: No POLST Status: DNR PD ED PE NORMAL - Vitals Vital signs reviewed: Yes - General General: Alert and oriented X 3, No acute distress - HEENT HEENT: Atraumatic - Neck Neck: No JVD - Cardiac Cardiac: RRR - Derm Derm: Normal color, Warm and dry - Extremities Extremities: No deformity - Neuro Neuro: Alert and oriented X 3, No motor deficit Eye Opening: Spontaneous PD ED PE EXPANDED - HEENT HEENT: Dry mucous membranes - Respiratory Respiratory: Wheezing (minimal bilateral wheezes) - Abdomen Abdomen: Tender to palpation, RUQ, RLQ, Other (easily reducible umbilical hernia ). No: Rebound, Guarding Results - Vitals Vitals: Vital Signs - 24 hr 06/08/27/17 08/27/17 21:35 23:15 23:42 Temperature 37.6 C H 36.3 C L Heart Rate 106 H 92 Respiratory 16 16 Rate Blood Pressure 130/74 130/67 O2 Saturation 96 94 Oxygen O2 Source Room air - Labs Labs: Laboratory Tests 08/27/17 08/27/17 08/27/17 20:01 20:01 20:01 WBC 11.2 H RBC 3.83 L Hgb 11.3 L Hct 34.8 L MCV 90.8 MCH 29.4 MCHC 32.4 RDW 14.9 Plt Count 292 MPV 7.5 L Neut # (Auto) 8.9 H Lymph # (Auto) 1.2 L Jenkins # (Auto) 0.8 Eos # (Auto) 0.2 Baso # (Auto) 0.1 Absolute Nucleated RBC 0.00 Nucleated RBC % 0.0 Sodium 134 L Potassium 3.1 L Chloride 100 L Carbon Dioxide 23 Anion Gap 11.0 BUN 19 Creatinine 0.9 Estimated GFR (MDRD) 59 L Glucose 113 H Lactic Acid Calcium 8.5 Total Bilirubin 0.6 AST 26 ALT 16 Alkaline Phosphatase 85 B-Natriuretic Peptide 91 Total Protein 7.8 Albumin 3.2 Globulin 4.6 H Albumin/Globulin Ratio 0.7 L Lipase 39 Urine Color Urine Clarity Urine pH Ur Specific Victor Urine Protein Urine Glucose (UA) Urine Ketones Urine Occult Blood Urine Nitrite Urine Bilirubin Urine Urobilinogen Ur Leukocyte Esterase Ur Microscopic Review Urine Culture Comments 08/27/17 08/27/17 20:01 23:44 WBC RBC Hgb Hct MCV MCH MCHC RDW Plt Count MPV Neut # (Auto) Lymph # (Auto) Jenkins # (Auto) Eos # (Auto) Baso # (Auto) Absolute Nucleated RBC Nucleated RBC % Sodium Potassium Chloride Carbon Dioxide Anion Gap BUN Creatinine Estimated GFR (MDRD) Glucose Lactic Acid 0.8 Calcium Total Bilirubin AST ALT Alkaline Phosphatase B-Natriuretic Peptide Total Protein Albumin Globulin Albumin/Globulin Ratio Lipase Urine Color YELLOW Urine Clarity CLEAR Urine pH 5.5 Ur Specific Victor <=1.005 Urine Protein NEGATIVE Urine Glucose (UA) NEGATIVE Urine Ketones NEGATIVE Urine Occult Blood NEGATIVE Urine Nitrite NEGATIVE Urine Bilirubin NEGATIVE Urine Urobilinogen 0.2 (NORMAL) Ur Leukocyte Esterase NEGATIVE Ur Microscopic Review NOT INDICATED Urine Culture Comments NOT INDICATED - Rads (name of study) chest x-ray Radiology: Final report received (steady infiltrates, unchanged) ct abd pelvis Radiology: Final report received, See rad report (multiple findings, see rad report) PD MEDICAL DECISION MAKING - ED course Complexity details: reviewed old records, reviewed results, re-evaluated patient , considered differential, d/w patient, d/w family ED course: Patient was seen and examined at bedside. patient was well appearing and in no distress. IV access was gained and labs were drawn. chest x-ray was ordered and was unchanged from previous. Patient was treated with a fluid bolus and CT was ordered. patient's urine was collected and was unremarkable. When patient returned from imaging results were reviewed. there were no significant abnormalities. Patient's abd was soft, non tender non distended. Patient's infiltrates were stable. patient was covered with antibiotics none the less due to her multiple co-morbidities. patient and family were given detailed discharge and follow up instructions. patient required no further work up at this time and was stable for discharge with outpatient follow up. - Sepsis Event Vital Signs: Vital Signs - 24 hr 08/27/17 08/27/17 08/27/17 21:35 23:15 23:42 Temperature 37.6 C H 36.3 C L Heart Rate 106 H 92 Respiratory 16 16 Rate Blood Pressure 130/74 130/67 O2 Saturation 96 94 Oxygen O2 Source Room air Departure - Departure Disposition: 01 Home, Self Care Clinical Impression: Pneumonia Condition: Good Instructions: ED Pneumonia Adult Follow-Up: Laura Mccabe MD [Primary Care Provider] - Within 3 Days Prescriptions: Benzonatate [Tessalon Perle] 100 mg PO TID #20 capsule Levofloxacin [Levaquin] 750 mg PO DAILY #4 tablet Comments: Your diagnostics today showed no new major abnormalities. Due to the duration of your symptoms we will start you on a course of antibiotics. It is important that you return to the emergency department for fevers, worsening cough or pain near your umbilicus (belly button). You should follow up with your doctor by friday but return here sooner if your symptoms get worse.
[2017-08-27] MEDS ORDERED: IOPAMIDOL-300 100 ML VIAL ONE (23:15)
[2017-08-27] MEDS ORDERED: IOPAMIDOL-300 100 ML VIAL IVP ONE (23:35)
[2017-08-27 23:49] LABS: BILIRUBIN,URINE NEGATIVE (NEGATIVE); GLUCOSE, URINE (UA) NEGATIVE (NEGATIVE); KETONES,URINE (UA) NEGATIVE (NEGATIVE); LEUKOCYTE ESTERASE, URINE NEGATIVE (NEGATIVE); NITRITE,URINE NEGATIVE (NEGATIVE); OCCULT BLOOD,URINE NEGATIVE (NEGATIVE); PH,URINE 5.5 PH (5.0-7.5); PROTEIN,URINE NEGATIVE (NEGATIVE); UROBILINOGEN,URINE 0.2 (NORMAL) E.U./dL (NORMAL)
[2017-08-27 23:50] LABS: CLARITY,URINE CLEAR (CLEAR)
--- NOTE | 2017-08-28 00:29 | CT Report ---
Procedure Date: 08/27/2017 Accession Number: [id number] / [id number] Procedure: CT - Abdomen/Pelvis W/ CPT Code: FULL RESULT: EXAM: CT ABDOMEN AND PELVIS EXAM DATE: 08/27/2017 11:34 PM. CLINICAL HISTORY: Right sided pain. COMPARISONS: 03/15/2010. TECHNIQUE: Routine helical CT imaging was performed through the abdomen and pelvis. IV contrast: ISOVUE 300 100mL. Enteric contrast: No. Reconstructions: Coronal and sagittal. In accordance with CT protocol optimization, one or more of the following dose reduction techniques were utilized for this exam: automated exposure control, adjustment of mA and/or KV based on patient size, or use of iterative reconstructive technique. FINDINGS: Lung Bases: Bibasilar infiltrates or aspiration. Left-sided posterior diaphragmatic eventration or Bochdalek hernia. Coronary artery calcifications and mitral annulus calcification. Small hiatal hernia. Liver: Fatty infiltration. Small cysts. Gallbladder/Bile Ducts: Unremarkable. Spleen: Normal. Pancreas: Normal. Adrenal Glands: Normal. Kidneys: Normal. No masses or hydronephrosis. Peritoneal Cavity/Bowel: Colonic diverticula are seen. Left hemicolon is collapsed and appears mildly thickened. No bowel obstruction seen. No free air or free fluid. No lymphadenopathy. Appendix appears normal. Pelvic Organs: Possible urinary bladder wall thickening. Visualized pelvic organs are otherwise unremarkable. Vasculature: Moderate to severe atherosclerosis. No aortic aneurysm. Bones: Osteopenia. Scoliosis and degenerative changes in the spine. Spinal stenosis. Other: Umbilical hernia containing fat. There is mild stranding in the herniated fat. IMPRESSION: 1. Patchy bibasilar infiltrates or aspiration. 2. Coronary artery calcifications and mitral annulus calcification. 3. Hiatal hernia. 4. Fatty liver with small cysts. 5. Colonic diverticula are seen. Left hemicolon is collapsed and appears mildly thickened. This may simply represent nondistention. Mild colitis also possible. Diverticulitis less likely. 6. Possible urinary bladder wall thickening which may be due to nondistention. Correlate with urinalysis for the possibility of cystitis. 7. Umbilical hernia containing fat. There is some mild stranding within the hernia and incarceration is not entirely excluded. Correlate for any tenderness in this area. [facility]
[2017-08-28] MEDS ORDERED: levoFLOXacin 250 MG TABLET PO STA (00:47)
[2017-08-28] MEDS ORDERED: POTASSIUM BICARB 25 MEQ TABLET PO STA (00:48)
[2017-08-28 00:59] VITALS: BP 142/77
== END 2017-08-28 01:15 | disposition home or self-care (01) ==
LOC: ED 21:27
DX: I10 Essential (primary) hypertension (principal); E11.9 Type 2 diabetes mellitus without complications; J18.9 Pneumonia, unspecified organism
CPT/HCPCS: 36415; 71046; 74177; 80053; 81003; 83605; 83690; 83880; 85025; 87040; 96360; 99283; A9270; Q9967; 81001; 87086

== ENCOUNTER 2017-09-01 | Outpatient (CLI) | END 2017-09-01 10:41 | disposition critical access hospital (66) | CPT/HCPCS: A0425; A0427 ==

== ENCOUNTER 2017-09-01 11:09 | Observation (INO) | payer MEDICARE, OTHER ==
[2017-09-01] MEDS ORDERED: DEXAMETHASONE 10 MG/ML VIAL PO STA (11:17)
[2017-09-01] MEDS ORDERED: SODIUM CHLORIDE 0.9% 1,000 ML IV ONE (11:17)
[2017-09-01] MEDS ORDERED: ALBUTEROL NEB 2.5 MG/3 ML INH STA (11:17)
--- NOTE | 2017-09-01 11:20 | ED Physician Documentation ---
History of Present Illness - Stated complaint Stated Complaint: SOA - Chief complaint Chief Complaint: Resp - Additonal information Additional information: hx from pt 86 female with COPD - has been admitted before, has been intubated before many yr ago, has home nebs but does not use home O2 recently dx with pna on levaquin using nebs at home inc SOA depsite nebs and ab called 911 and hypoxic low 80s given duoneb en roite no fever no CP except with cough has had abd pain NV since she had a CT scan with contrast no leg edema per EMR pt was admitted to [facility] for CP and had neg trops, neg stress, neg CTPA then seen in ER 08/27 and dx with pna and started on levaquin Review of Systems Constitutional: denies: Fever Cardiac: reports: Chest pain / pressure (with cough) Respiratory: reports: Dyspnea, Cough, Wheezing GI: reports: Abdominal Pain, Nausea, Vomiting Musculoskeletal: denies: Extremity swelling Endocrine: denies: Easy bruising / bleeding Immunocompromised: denies: Immunocompromised PD PAST MEDICAL HISTORY - Past Medical History Cardiovascular: Hypertension, High cholesterol Respiratory: Asthma, COPD, Emphysema, Pneumonia, Shortness of breath Neuro: TIA, Peripheral neuropathy Endocrine/Autoimmune: Type 2 diabetes, HyPOthyroidism GI: GERD, Hiatal hernia LEAN SPECIALIST: None : Chronic bladder infection, Nocturia HEENT: Chronic vision loss, Macular degeneration, Chronic hearing loss Psych: Claustrophobia Musculoskeletal: Osteoarthritis, Gout Derm: None - Past Surgical History Past Surgical History: Yes General: Bowel surgery HEENT: Cataracts - Present Medications Home Medications: Ambulatory Orders Medication Instructions Recorded Confirmed Cyanocobalamin (Vitamin B-12) 500 mcg PO DAILY 07/26/12 09/01/17 [Vitamin B-12 (500 mcg sublingual)] Hydrochlorothiazide 12.5 mg PO DAILY 07/26/12 09/01/17 Levothyroxine [Synthroid] 100 mcg PO QDAC 07/26/12 09/01/17 Lisinopril [Prinivil] 5 mg PO DAILY 07/26/12 09/01/17 Pyridoxine HCl [Vitamin B-6] 100 mg PO DAILY 07/26/12 09/01/17 Verapamil HCl [Verapamil ER] 240 mg PO DAILY 07/26/12 09/01/17 Montelukast [Singulair] 10 mg PO QPM 06/26/15 09/01/17 Albuterol Sulfate [Proair 2 puffs IH Q4H PRN 12/22/16 09/01/17 Respiclick] Allopurinol 300 mg PO DAILY 12/22/16 09/01/17 Aspirin 81 mg PO DAILY 12/22/16 09/01/17 Simvastatin 20 mg PO QPM 12/22/16 09/01/17 Cholecalciferol [Vitamin D3] 5,000 unit PO DAILY 08/15/17 09/01/17 Furosemide 20 mg PO DAILY 08/15/17 09/01/17 Theophylline Anhydrous [Carl-24] 300 mg PO DAILY 08/15/17 09/01/17 Mometasone/Formoterol [Dulera 100 1 puffs INH BID 09/01/17 09/01/17 Mcg/5 Mcg Inhaler] Omeprazole 10 mg PO QDAC 09/01/17 09/01/17 - Allergies Allergies/Adverse Reactions: Allergies Allergy/AdvReac Type Severity Reaction Status Date / Time codeine [Codeine] Allergy Intermediate Itching Verified 08/27/17 21:40 - Social History Does the pt smoke?: No Smoking Status: Never smoker Does the pt drink ETOH?: No Does the pt have substance abuse?: No - Immunizations Immunizations are current?: Yes - POLST Patient has POLST: No POLST Status: DNR PD ED PE NORMAL - Vitals Vital signs reviewed: Yes - General General: Alert and oriented X 3 - Cardiac Cardiac: RRR - Respiratory Respiratory: No respiratory distress, Other (insp exp wheeze kemal) - Abdomen Abdomen: Soft, Other (mod TTP diffusel not peritoneal no pulsatile mass) - Derm Derm: Normal color - Extremities Extremities: No deformity, No edema, No calf tenderness / cord - Neuro Neuro: Alert and oriented X 3 Results - Vitals Vitals: Vital Signs - 24 hr 09/01/17 09/01/17 09/01/17 11:10 11:38 11:49 Temperature 36.3 C L Heart Rate 94 93 96 Respiratory 26 H 18 18 Rate Blood Pressure 142/81 H 137/77 H O2 Saturation 94 99 09/01/17 13:45 Temperature Heart Rate 102 H Respiratory 26 H Rate Blood Pressure 160/74 H O2 Saturation 96 Oxygen O2 Source Room air - Labs Labs: Laboratory Tests 09/01/17 09/01/17 09/01/17 11:40 11:40 11:40 WBC 9.7 RBC 3.96 L Hgb 11.7 L Hct 35.2 L MCV 89.0 MCH 29.6 MCHC 33.2 RDW 14.9 Plt Count 285 MPV 7.6 L Neut # (Auto) 7.8 H Lymph # (Auto) 1.3 L [place] # (Auto) 0.5 Eos # (Auto) 0.1 Baso # (Auto) 0.1 Absolute Nucleated RBC 0.00 Nucleated RBC % 0.0 Sodium 131 L Potassium 3.3 L Chloride 93 L Carbon Dioxide 26 Anion Gap 12.0 BUN 14 Creatinine 0.9 Estimated GFR (MDRD) 59 L Glucose 95 Lactic Acid Calcium 8.6 Troponin I < 0.04 B-Natriuretic Peptide 09/01/17 09/01/17 11:40 12:15 WBC RBC Hgb Hct MCV MCH MCHC RDW Plt Count MPV Neut # (Auto) Lymph # (Auto) [place] # (Auto) Eos # (Auto) Baso # (Auto) Absolute Nucleated RBC Nucleated RBC % Sodium Potassium Chloride Carbon Dioxide Anion Gap BUN Creatinine Estimated GFR (MDRD) Glucose Lactic Acid 1.1 Calcium Troponin I B-Natriuretic Peptide 43 - Rads (name of study) CXR Radiology: See rad report (nodular right upper lobe opacities without sig change , progression of right basilar interstitial consolidation) PD MEDICAL DECISION MAKING - ED course ED course: dx with pna 08/27 now worse - wheezing, hypoxic, worsening infiltrate on CXR given nebs and steroids in ED rocpehin and zmax since not better with le[place]in spoke with Dr Arellano hospitalist at 1335 and she will admit inpt - Sepsis Event Vital Signs: Vital Signs - 24 hr 09/01/17 09/01/17 09/01/17 11:10 11:38 11:49 Temperature 36.3 C L Heart Rate 94 93 96 Respiratory 26 H 18 18 Rate Blood Pressure 142/81 H 137/77 H O2 Saturation 94 99 09/01/17 13:45 Temperature Heart Rate 102 H Respiratory 26 H Rate Blood Pressure 160/74 H O2 Saturation 96 Oxygen O2 Source Room air Departure - Departure Disposition: ED Place in Observation Clinical Impression: Hypoxia Pneumonia Qualifiers: Pneumonia type: due to unspecified organism Laterality: right Lung location: unspecified part of lung Qualified Code(s): J18.9 - Pneumonia, unspecified organism COPD (chronic obstructive pulmonary disease) Qualifiers: COPD type: unspecified COPD Qualified Code(s): J44.9 - Chronic obstructive pulmonary disease, unspecified Condition: Fair
[2017-09-01] MEDS ORDERED: CHERRY SYRUP 10 ML UDC PO ONE (11:43)
[2017-09-01 11:59] LABS: BASOPHILS # (AUTO) 0.1 10^3/uL (0.0-0.1); BASOPHILS % (AUTO) 0.6 %; EOSINOPHILS # (AUTO) 0.1 10^3/uL (0.0-0.7); EOSINOPHILS % (AUTO) 1.3 %; HGB - HEMOGLOBIN 11.7 g/dL (12.0-16.0); LYMPHOCYTES # (AUTO) 1.3 10^3/uL (1.5-3.5); MEAN CORPUSCULAR HEMOGLOBIN 29.6 pg (27.0-31.0); MEAN CORPUSCULAR HGB CONC 33.2 g/dL (32.0-36.0); MEAN PLATELET VOLUME 7.6 fL (7.9-10.8); MONOCYTES # (AUTO) 0.5 10^3/uL (0.0-1.0); MONOCYTES % (AUTO) 5.6 %; NEUTROPHILS # (AUTO) 7.8 10^3/uL (1.5-6.6); NEUTROPHILS % (AUTO) 79.5 %; PLT - PLATELET COUNT 285 10^3/uL (130-450); RED BLOOD COUNT 3.96 10^6/uL (4.20-5.40); RED CELL DISTRIBUTION WIDTH 14.9 % (12.0-15.0); WHITE BLOOD COUNT 9.7 x10^3/uL (4.8-10.8)
[2017-09-01 12:08] LABS: CALCIUM 8.6 mg/dL (8.5-10.3); CREATININE 0.9 mg/dL (0.4-1.0)
--- NOTE | 2017-09-01 12:44 | XRAY Report ---
Procedure Date: 09/01/2017 Accession Number: [id number] / [id number] Procedure: XR - Chest 2 View X-Ray CPT Code: 08238 FULL RESULT: EXAM: CHEST RADIOGRAPHY EXAM DATE: 09/01/2017 12:06 PM. CLINICAL HISTORY: Known pna getting worse. COMPARISON: 08/27/2017. 08/09/2017. TECHNIQUE: 2 views. FINDINGS: Lungs/Pleura: Nodular right upper lobe opacities are again seen. Interstitial changes in the right lung base are more prominent. No vascular congestion. No pneumothorax. Scarring is seen in the left lung base. No pleural effusions. Mediastinum: Cardiomegaly. Aortic atherosclerosis. Other: Degenerative changes of the thoracic spine. Thoracic/lumbar scoliosis. IMPRESSION: 1. Nodular right upper lobe opacities without significant change with progression of right basilar interstitial changes suggesting progression of consolidation. Continued surveillance recommended. RADIA
[2017-09-01] MEDS ORDERED: cefTRIAXone 1 GM in SODIUM CHLORIDE 0.9% MINIBAG 100 ML IV STA (13:36)
[2017-09-01] MEDS ORDERED: AZITHROMYCIN 250 MG TABLET PO STA (13:36)
[2017-09-01] MEDS ORDERED: ZOLPIDEM 5 MG TABLET PO PRN (14:30)
[2017-09-01] MEDS ORDERED: SODIUM CHLORIDE FLUSH 0.9% 10 ML SYRINGE IVP PRN (14:30)
[2017-09-01] MEDS ORDERED: ONDANSETRON 4 MG/2 ML VIAL IVP PRN (14:30)
[2017-09-01] MEDS ORDERED: ALBUTEROL NEB 2.5 MG/3 ML INH PRN (14:38)
[2017-09-01] MEDS ORDERED: POTASSIUM CHLORIDE 20 MEQ TABLET PO SCH (14:40)
--- NOTE | 2017-09-01 15:20 | HISTORY & PHYSICAL EXAMINATION ---
Chief Complaint - Chief Complaint Chief Complaint: cough and congestion History of Present Illness - Admitted From Admitted From:: ER - History Obtained From History obtained from: Pt - History of Present Illness HPI Comment/Other: is an 86-year-old female with a past medical history significant for asthma, diet-controlled diabetes, hypertension, hypothyroidism, hyperlipidemia, peripheral neuropathy and recent TIA who presents to the emergency department with a chief complaint of cough, congestion, and generalized weakness. pt report she had cough, congestion and felt very weakness in the home. she report she was diagnosis of pneumonia one weeks ago and treated with antibiotics Levoquin. Pt report after she was treated today in ER, she felt better in breathing but still felt very weak. She denies chest pain, headache, fever, chill, nausea/vomiting, abdominal pain or diaphoresis, blurred vision, sore throat, difficulty swallowing, orthopnea, PND, increased lower extremity swelling, cough, diarrhea, constipation, dysuria, increased urinary frequency, joint swelling, joint aches, muscle aches, back pain, neck stiffness, recent unintentional weight loss, changes in her appetite, night sweats or any focal neurologic deficits, black stool. On presentation to the emergency department the patient was afebrile, BP 137/77 , HR 96, RR 18, 99% sats on room air. CXR reveals nodular in the right upper lobe opacities without significant change, with progression of right basilar interstitial consolidation. Lab test in ER reveals WBC 9.7, Na 131, Potassium 3.3. pt was placed in the observation unit for further evaluation and treatment of generalized weakness and possible pneumonia. History - Past Medical History Cardiovascular: reports: Hypertension, High cholesterol Respiratory: reports: Asthma, COPD, Emphysema, Pneumonia, Shortness of breath Neuro: reports: TIA, Peripheral neuropathy Endocrine/Autoimmune: reports: Type 2 diabetes, HyPOthyroidism GI: reports: GERD, Hiatal hernia WIRE WORKER: reports: None : reports: Chronic bladder infection, Nocturia HEENT: reports: Chronic vision loss, Macular degeneration, Chronic hearing loss Psych: reports: Claustrophobia Musculoskeletal: reports: Osteoarthritis, Gout Derm: reports: None MRSA Hx?: No - Past Surgical History General: reports: Bowel surgery HEENT: reports: Cataracts - Family & Social History Family History: Mother: , CAD, Father: , Cancer (Dad had leukemia), Sister: CAD, Brother: [place] Family History Comment/Other: She is now. She had three children. She is living with her one son in [place] now. Social History Notes: The patient lives in [place] with her son. She is and was to her for 42 years before he many years ago now. She has 3 children 1 of whom . She is retired. She still is able to do all of her activities of daily living independently. She uses a cane and walker to get around at home but is still ambulatory. She quit smoking in 1975 prior to that she smoked a half a pack a day for about 27 years. She denies any alcohol use or any illicit drug use. - Substance History Use: Uses substance without health or social issues: NONE Abuse: Recurrent use of substance despite neg consequences: NONE Dependence: Experiences withdrawal or developed tolerances: NONE - POLST Patient has POLST: No POLST Status: DNR Meds/Allgy - Home Medications Home Medications: Ambulatory Orders Medication Instructions Recorded Confirmed Cyanocobalamin (Vitamin B-12) 500 mcg PO DAILY 07/26/12 09/01/17 [Vitamin B-12 (500 mcg sublingual)] Hydrochlorothiazide 12.5 mg PO DAILY 07/26/12 09/01/17 Levothyroxine [Synthroid] 100 mcg PO QDAC 07/26/12 09/01/17 Lisinopril [Prinivil] 5 mg PO DAILY 07/26/12 09/01/17 Pyridoxine HCl [Vitamin B-6] 100 mg PO DAILY 07/26/12 09/01/17 Verapamil HCl [Verapamil ER] 240 mg PO DAILY 07/26/12 09/01/17 Montelukast [Singulair] 10 mg PO QPM 06/26/15 09/01/17 Albuterol Sulfate [Proair 2 puffs IH Q4H PRN 12/22/16 09/01/17 Respiclick] Allopurinol 300 mg PO DAILY 12/22/16 09/01/17 Aspirin 81 mg PO DAILY 12/22/16 09/01/17 Simvastatin 20 mg PO QPM 12/22/16 09/01/17 Cholecalciferol [Vitamin D3] 5,000 unit PO DAILY 08/15/17 09/01/17 Furosemide 20 mg PO DAILY 08/15/17 09/01/17 Theophylline Anhydrous [Carl-24] 300 mg PO DAILY 08/15/17 09/01/17 Mometasone/Formoterol [Dulera 100 1 puffs INH BID 09/01/17 09/01/17 Mcg/5 Mcg Inhaler] Omeprazole 10 mg PO QDAC 09/01/17 09/01/17 - Allergies Allergies/Adverse Reactions: Allergies Allergy/AdvReac Type Severity Reaction Status Date / Time codeine [Codeine] Allergy Intermediate Itching Verified 08/27/17 21:40 Review of Systems - Constitutional Constitutional: reports: Fatigue, Weakness. denies: Fever, Chills, Malaise, Poor appetite, Diaphoresis, Night sweats, Weight gain, Weight loss - Eyes Eyes: denies: Pain, Irritation, Amaurosis, Blurred vision, Spots in vision, Field loss, Vision loss, Dipolpia - Ears, Nose & Throat Ears, Nose & Throat: reports: Nasal congestion. denies: Ear pain, Hearing loss , Hearing aids, Tinnitus, Vertigo, Nasal pain, Nasal discharge, Nosebleeds, Nasal obstruction, Postnasal drainage, Dentures, Sore throat, Mouth lesions, Bleeding gums, Dental decay - Cardiovascular Cariovascular: denies: Irregular heart rate, Palpitations, Chest pain, Edema, Lightheadedness, Syncope, Exertional dyspnea, Decr. exercise tolerance - Respiratory Respiratory: reports: Cough, Sputum production, SOB with exertion. denies: Wheezing, Snoring, Hemoptysis, Orthopnea, SOB at rest, Apnea - Gastrointestinal Gastrointestinal: denies: Abdominal pain, Abdominal distention, Constipation, Diarrhea, Change in bowel habits, Rectal bleeding, Black stools, Bloody stools, Nausea, Vomiting, Bile emesis, Moose blood emesis, Coffee grounds emesis, Reflux /heartburn, Bloating - Genitourinary Genitourinary: denies: Dysuria, Frequency, Urgency, Hematuria, Incontinence, Flank pain, Nocturia, Urethral discharge - Musculoskeletal Musculoskeletal: denies: Muscle pain, Back pain, Muscle aches, Stiffness, Limited range of motion, Muscle weakness, Gout, Joint pain - Integumentary Integumentary: denies: Rash, Pruritis, Lesions, Dryness, Lumps, Acne, Pigment changes - Neurological Neurological: reports: General weakness. denies: Focal weakness, Headache, Dizziness, Numbness, Memory problems, Pre-existing deficit, Abnormal gait, Seizures, Incoordination, Slurred speech - Psychiatric Psychiatric: denies: Depression, Anxiety, Suicidal, Delusions, Hallucinations, Homicidal - Endocrine Endocrine: denies: Polyuria, Polydypsia, Polyphagia, Intolerance to cold - Hematologic/Lymphatic Hematologic/Lymphatic: denies: Anemia, Bruising, Petechiae, Blood clots, Lymphadenopathy, Bleeding tendencies Exam - Vital Signs Vital Signs: Vital Signs x48h Pulse Resp BP Pulse Ox 09/01/17 15:16 98 29 H 130/73 96 - Physical Exam General Appearance: positive: No acute distress, Alert. negative: Lethargic Eyes Bilateral: positive: Normal inspection, PERRL, No lid inflammation, Conjunctivae nml ENT: positive: ENT inspection nml, Pharynx nml, No signs of dehydration. negative: Purulent nasal drainage, Pharyngeal erythema, Oral lesions Neck: positive: Nml inspection, Thyroid nml, No JVD, Trachea midline. negative : Thyromegaly, Lymphadenopathy (R), Lymphadenopathy (L), Stiff neck, Swelling/ bruising, Tracheal deviation Respiratory: positive: Chest non-tender, No respiratory distress, Breath sounds nml. negative: Wheezes, Rales, Rhonchi Cardiovascular: positive: Regular rate & rhythm, No murmur, No gallop. negative : Irregularly irregular, Extrasystoles, Tachycardia, Bradycardia, JVD present, Systolic murmur, Diastolic murmur Peripheral Pulses: positive: 2+ Abdomen: positive: Non-tender, No organomegaly, Nml bowel sounds, No distention. negative: Tenderness, Guarding, Rebound Back: positive: Nml inspection. negative: CVA tenderness (R), CVA tenderness (L ) Skin: positive: Color nml, No rash, Warm, Dry. negative: Cyanosis, Diaphoresis , Pallor Extremities: positive: Non-tender, Full ROM, Nml appearance. negative: Calf tenderness, Joint swelling, Asya's sign/cords Neurologic/Psychiatric: positive: Oriented x3, Sensation nml, Mood/affect nml. negative: Sensory loss, Facial droop, Slurred/abnml speech, Depressed mood/ affect Conclusion/Plan - Problem List (1) Generalized weakness Conclusion/Plan: pt present generalized weakness, consult with PT/OT correct pt's electrolytes abnormality daily lab anc vital monitor (2) Pneumonia Conclusion/Plan: pt was treated for pneumonia with Levoquin recently. CXR reveals progression of right low lob consolidation. but clinic pt with room air 99% sats, WBC 9.7, pt does not present respiratory distress after treatment in ER ER provider report pt had pneumonia and treated with rocephin and Azithyomycin albuterol and Duoneb PRN (3) HTN (hypertension) Conclusion/Plan: stable, resume home BP meds (4) Hypothyroidism Conclusion/Plan: will check TSH and follow up (5) History of asthma Conclusion/Plan: no acute respiratory distress, no acute asthma. resume home breathing treatment regime vital monitor (6) Hyponatremia Conclusion/Plan: Na is 131, it appears from hyponatremia and hypovulme NS IVF daily lab monitor (7) Hypokalemia Conclusion/Plan: potassium 3.3 today replacement of potassium recheck potassium (8) DVT prophylaxis Conclusion/Plan: SCD and lovenox (9) Do not intubate, cardiopulmonary resuscitation (CPR)-only code status Conclusion/Plan: pt request DNR - Lab Results Fish Bones: 09/01/17 11:40 09/01/17 11:40 Core Measures - Anticipated LOS I expect patient to be DC'd or transferred within 96 hours.: Yes - DVT/VTE - Prophylaxis VTE/DVT Device ordered at admit?: Yes VTE/DVT Prophylaxis med ordered at admit?: Yes
[2017-09-01] MEDS: SODIUM CHLORIDE FLUSH 0.9% 10 ML SYRINGE IVP SCH ×2 (15:56→23:36)
[2017-09-01 17:46] LABS: BILIRUBIN,URINE NEGATIVE (NEGATIVE); GLUCOSE, URINE (UA) NEGATIVE (NEGATIVE); KETONES,URINE (UA) TRACE mg/dL (NEGATIVE); LEUKOCYTE ESTERASE, URINE NEGATIVE (NEGATIVE); NITRITE,URINE NEGATIVE (NEGATIVE); OCCULT BLOOD,URINE NEGATIVE (NEGATIVE); PROTEIN,URINE NEGATIVE (NEGATIVE); UROBILINOGEN,URINE 0.2 (NORMAL) E.U./dL (NORMAL)
[2017-09-01 17:49] LABS: CLARITY,URINE CLEAR (CLEAR)
[2017-09-01] MEDS: SODIUM CHLORIDE 0.9% 1,000 ML IV SCH (17:53)
[2017-09-01 17:57] LABS: EPITHELIAL CELLS,UR FEW Renal Tubular /HPF (<= Few); RBC,URINE None Seen /HPF (0-5); SQUAMOUS EPITHELIAL CELL,UR MANY Squamous (<= Few)
[2017-09-01 17:58] LABS: BACTERIA,URINE Few /HPF (None Seen)
[2017-09-01] MEDS ORDERED: ATORVASTATIN 10 MG TABLET PO SCH (21:00)
[2017-09-01] MEDS ORDERED: MONTELUKAST 10 MG TABLET PO SCH (21:00)
[2017-09-01] MEDS: IPRATROPIUM/ALBUTEROL 3 ML NEB INH PRN (21:30)
[2017-09-01] MEDS: ACETAMINOPHEN 325 MG TABLET PO PRN (23:47)
[2017-09-02] MEDS: IPRATROPIUM/ALBUTEROL 3 ML NEB INH PRN (03:41)
[2017-09-02 06:08] LABS: BASOPHILS % (AUTO) 0.1 %; HGB - HEMOGLOBIN 10.6 g/dL (12.0-16.0); LYMPHOCYTES # (AUTO) 0.6 10^3/uL (1.5-3.5); LYMPHOCYTES % (AUTO) 10.9 %; MEAN CORPUSCULAR HEMOGLOBIN 30.2 pg (27.0-31.0); MEAN CORPUSCULAR HGB CONC 33.8 g/dL (32.0-36.0); MEAN CORPUSCULAR VOLUME 89.2 fL (81.0-99.0); MEAN PLATELET VOLUME 7.2 fL (7.9-10.8); MONOCYTES # (AUTO) 0.2 10^3/uL (0.0-1.0); MONOCYTES % (AUTO) 4.2 %; NEUTROPHILS # (AUTO) 4.8 10^3/uL (1.5-6.6); NEUTROPHILS % (AUTO) 84.8 %; PLT - PLATELET COUNT 266 10^3/uL (130-450); RED BLOOD COUNT 3.53 10^6/uL (4.20-5.40); RED CELL DISTRIBUTION WIDTH 14.8 % (12.0-15.0); WHITE BLOOD COUNT 5.7 x10^3/uL (4.8-10.8)
[2017-09-02] MEDS: SODIUM CHLORIDE 0.9% 1,000 ML IV SCH (06:15)
[2017-09-02 06:22] LABS: ALBUMIN 2.7 g/dL (3.2-5.5); ALBUMIN/GLOBULIN RATIO 0.7 (1.0-2.2); BILIRUBIN,TOTAL 0.5 mg/dL (0.2-1.0); CALCIUM 7.9 mg/dL (8.5-10.3); CREATININE 0.9 mg/dL (0.4-1.0); MAGNESIUM 1.2 mg/dL (1.7-2.8); TOTAL PROTEIN 6.6 g/dL (6.7-8.2)
[2017-09-02] MEDS ORDERED: LEVOTHYROXINE 100 MCG TABLET PO SCH (07:00)
[2017-09-02] MEDS: ACETAMINOPHEN 325 MG TABLET PO PRN (08:17)
[2017-09-02] MEDS: SODIUM CHLORIDE FLUSH 0.9% 10 ML SYRINGE IVP SCH (08:18)
[2017-09-02] MEDS ORDERED: MAGNESIUM SULFATE 2 GRAM 2 GM/50 ML BAG IV ONE (08:18)
[2017-09-02] MEDS ORDERED: THEOPHYLLINE ER 300 MG TABLET PO SCH (09:00)
[2017-09-02] MEDS ORDERED: CYANOCOBALAMIN 500 MCG TABLET PO SCH (09:00)
[2017-09-02] MEDS ORDERED: FAMOTIDINE 20 MG TABLET PO SCH (09:00)
[2017-09-02] MEDS ORDERED: PYRIDOXINE 100 MG TABLET PO SCH (09:00)
[2017-09-02] MEDS ORDERED: ALLOPURINOL 100 MG TABLET PO SCH (09:00)
[2017-09-02] MEDS ORDERED: LISINOPRIL 5 MG TABLET PO SCH (09:00)
[2017-09-02] MEDS ORDERED: POLYETHYLENE GLYCOL 3350 17 GM PACKET PO SCH (09:00)
[2017-09-02] MEDS ORDERED: VERAPAMIL ER 120 MG TABLET PO SCH (09:00)
[2017-09-02] MEDS ORDERED: FUROSEMIDE 20 MG TABLET PO SCH (09:00)
[2017-09-02] MEDS ORDERED: cefTRIAXone 1 GM VIAL IVP SCH (09:00)
[2017-09-02] MEDS ORDERED: ASPIRIN CHEW 81 MG TABLET PO SCH (09:00)
[2017-09-02] MEDS ORDERED: CHOLECALCIFEROL 5,000 UNIT CAPSULE PO SCH (09:00)
[2017-09-02] MEDS ORDERED: ENOXAPARIN 40 MG/0.4 ML SYRINGE SUBQ SCH (09:00)
--- NOTE | 2017-09-02 11:30 | Discharge Plan ---
Discharge Plan Disposition: Home, Self Care Condition: Poor Prescriptions: cefUROXime axetil [Ceftin] 250 mg PO Q12H #14 tablet Levothyroxine [Synthroid] 125 mcg PO QDAC #10 tablet Diet: Regular Activity Restrictions: Activity as Tolerated Shower Restrictions: No (fall precaution, caregiver closely monitor) Weight Bearing: Full Weight Instruction Topics: Hyponatremia Dc, ED Hypothyroidism, Pneumonia, Cefuroxime tablets Additional Instructions or Follow Up instructions: You may follow up your PCP in one week. Your levothyroxine increase to 125mcg daily from 100mcg due to elevated TSH. You have hyponatremia, low sodium level in your blood stream, your hydrochlorothiazide is d/c. Should your symptoms return or worsen, you may present ER or call 911 for help. No Smoking: If you smoke, Please STOP! Call for help. Follow-up with: Laura Mccabe MD [Primary Care Provider] -
--- NOTE | 2017-09-02 11:42 | DISCHARGE SUMMARY ---
Discharge Summary Discharge Date: 09/02/17 Discharging Provider: DIAZ Primary Care Provider: Dr. Mccabe Condition at Discharge: Poor Discharge Disposition: 01 Home, Self Care Discharge Facility Name: home - DIAGNOSES Admission Diagnoses: (1) Generalized weakness (2) Pneumonia (3) HTN (hypertension) (4) Hypothyroidism (5) History of asthma (6) Hyponatremia (7) Hypokalemia Discharge Diagnoses with Status of Each Condition: (1) Generalized weakness Per PT evaluation and treatment, pt's strength is turned to her baseline. pt report she feel much better and request to be d/c to home (2) Pneumonia no fever, chill, normal WBC, normal breath at 98% sats at room air, continue a few days to finish the antibiotics course (3) HTN (hypertension) stable (4) Hypothyroidism high TSH, increase synthyroxine to 125 mcg from previous 100mcg, continue to be managed by PCP (5) History of asthma stable, (6) Hyponatremia improved, D/C HCTZ, continue to be managed by PCP (7) Hypokalemia resolved. - HPI History of Present Illness: is an 86-year-old female with a past medical history significant for asthma, diet-controlled diabetes, hypertension, hypothyroidism, hyperlipidemia, peripheral neuropathy and recent TIA who presents to the emergency department with a chief complaint of cough, congestion, and generalized weakness. pt report she had cough, congestion and felt very weakness in the home. she report she was diagnosis of pneumonia one weeks ago and treated with antibiotics Levoquin. Pt report after she was treated today in ER, she felt better in breathing but still felt very weak. She denies chest pain, headache, fever, chill, nausea/vomiting, abdominal pain or diaphoresis, blurred vision, sore throat, difficulty swallowing, orthopnea, PND, increased lower extremity swelling, cough, diarrhea, constipation, dysuria, increased urinary frequency, joint swelling, joint aches, muscle aches, back pain, neck stiffness, recent unintentional weight loss, changes in her appetite, night sweats or any focal neurologic deficits, black stool. On presentation to the emergency department the patient was afebrile, BP 137/77 , HR 96, RR 18, 99% sats on room air. CXR reveals nodular in the right upper lobe opacities without significant change, with progression of right basilar interstitial consolidation. Lab test in ER reveals WBC 9.7, Na 131, Potassium 3.3. pt was placed in the observation unit for further evaluation and treatment of generalized weakness and possible pneumonia. - ALLERGIES Allergies/Adverse Reactions: Allergies Allergy/AdvReac Type Severity Reaction Status Date / Time codeine [Codeine] Allergy Intermediate Itching Verified 08/27/17 21:40 - MEDICATIONS Home Medications: Ambulatory Orders Medication Instructions Recorded Confirmed Cyanocobalamin (Vitamin B-12) 500 mcg PO DAILY 07/26/12 09/01/17 [Vitamin B-12 (500 mcg sublingual)] Lisinopril [Prinivil] 5 mg PO DAILY 07/26/12 09/01/17 Pyridoxine HCl [Vitamin B-6] 100 mg PO DAILY 07/26/12 09/01/17 Verapamil HCl [Verapamil ER] 240 mg PO DAILY 07/26/12 09/01/17 Montelukast [Singulair] 10 mg PO QPM 06/26/15 09/01/17 Albuterol Sulfate [Proair 2 puffs IH Q4H PRN 12/22/16 09/01/17 Respiclick] Allopurinol 300 mg PO DAILY 12/22/16 09/01/17 Aspirin 81 mg PO DAILY 12/22/16 09/01/17 Simvastatin 20 mg PO QPM 12/22/16 09/01/17 Cholecalciferol [Vitamin D3] 5,000 unit PO DAILY 08/15/17 09/01/17 Furosemide 20 mg PO DAILY 08/15/17 09/01/17 Theophylline Anhydrous [Carl-24] 300 mg PO DAILY 08/15/17 09/01/17 Mometasone/Formoterol [Dulera 100 1 puffs INH BID 09/01/17 09/01/17 Mcg/5 Mcg Inhaler] Omeprazole 10 mg PO QDAC 09/01/17 09/01/17 Levothyroxine [Synthroid] 125 mcg PO QDAC #10 tablet 09/02/17 cefUROXime axetil [Ceftin] 250 mg PO Q12H #14 tablet 09/02/17 - PHYSICAL EXAM AT DISCHARGE General Appearance: positive: No acute distress, Alert. negative: Lethargic Eyes Bilateral: positive: Normal inspection, PERRL, No lid inflammation, Conjunctivae nml ENT: positive: ENT inspection nml, Pharynx nml, No signs of dehydration. negative: Purulent nasal drainage, Pharyngeal erythema, Oral lesions Neck: positive: Nml inspection, Thyroid nml, No JVD, Trachea midline. negative : Thyromegaly, Lymphadenopathy (R), Lymphadenopathy (L), Stiff neck, Swelling/ bruising, Tracheal deviation Respiratory: positive: Chest non-tender, No respiratory distress, Breath sounds nml. negative: Wheezes, Rales, Rhonchi Cardiovascular: positive: Regular rate & rhythm, No murmur, No gallop. negative : Irregularly irregular, Extrasystoles, Tachycardia, Bradycardia, JVD present, Systolic murmur, Diastolic murmur Peripheral Pulses: positive: 2+ Abdomen: positive: Non-tender, No organomegaly, Nml bowel sounds, No distention. negative: Tenderness, Guarding, Rebound Back: positive: Nml inspection. negative: CVA tenderness (R), CVA tenderness (L ) Skin: positive: Color nml, No rash, Warm, Dry. negative: Cyanosis, Diaphoresis , Pallor Extremities: positive: Non-tender, Full ROM, Nml appearance. negative: Calf tenderness, Joint swelling, Asya's sign/cords Neurologic/Psychiatric: positive: Oriented x3, Motor nml, Sensation nml, Mood/ affect nml. negative: Weakness, Sensory loss, Facial droop, Slurred/abnml speech, Depressed mood/affect - LABS Result Diagrams: 09/02/17 05:47 09/02/17 05:47 - FOLLOW UP Follow Up: You may follow up your PCP in one week. Your levothyroxine increase to 125mcg daily from 100mcg due to elevated TSH. You have hyponatremia, low sodium level in your blood stream, your hydrochlorothiazide is d/c. Should your symptoms return or worsen, you may present ER or call 911 for help. - TIME SPENT Time Spent in Discharge (Minutes): 50
[2017-09-02 12:43] VITALS: BP 131/63
[2017-09-02] MEDS ORDERED: cefTRIAXone 1 GM in SODIUM CHLORIDE 0.9% MINIBAG 100 ML IV SCH (13:00)
[2017-09-02] MEDS ORDERED: AZITHROMYCIN INJ 500 MG in SODIUM CHLORIDE 0.9% 250 ML IV SCH (14:00)
[2017-09-03] MEDS ORDERED: LEVOTHYROXINE 125 MCG TABLET PO SCH (07:00)
== END 2017-09-02 13:40 | disposition home or self-care (01) ==
LOC: EDUNIT# → ED 11:09 → OBS 14:31
PROVIDERS: ADMIT Nurse Practitioner Gerontology; ATTEND Nurse Practitioner Gerontology
DX: J18.1 Lobar pneumonia, unspecified organism (principal); R09.02 Hypoxemia; J43.9 Emphysema, unspecified; J45.909 Unspecified asthma, uncomplicated; E87.1 Hypo-osmolality and hyponatremia; E86.1 Hypovolemia; E87.6 Hypokalemia; I10 Essential (primary) hypertension; E78.5 Hyperlipidemia, unspecified; E11.42 Type 2 diabetes mellitus with diabetic polyneuropathy; E03.9 Hypothyroidism, unspecified; K21.9 Gastro-esophageal reflux disease without esophagitis; M10.9 Gout, unspecified; Z79.899 Other long term (current) drug therapy; Z86.73 Personal history of transient ischemic attack (TIA), and cerebral infarction without residual deficits; Z79.82 Long term (current) use of aspirin; Z66 Do not resuscitate; Z87.891 Personal history of nicotine dependence
CPT/HCPCS: 36415; 71046; 80048; 80053; 81001; 83605; 83735; 83880; 84443; 84484; 85025; 87040; 94640; 96361; 96365; 96366; 96367; 96372; 99284; A9270; G0378; J1650; 87086; 99283

== ENCOUNTER 2017-12-28 18:58 | Emergency (ER) | payer MEDICARE, OTHER ==
--- NOTE | 2017-12-28 20:32 | ED Physician Documentation ---
PD HPI HEAD INJURY - Stated complaint Stated Complaint: GLF - WHITE - Chief complaint Chief Complaint: Trauma Hd/Nk - History obtained from History obtained from: Patient - History of Present Illness Mechanism of head injury: Fell Where head injury occurred: Home Timing - onset: How many days ago (3) Location of injury: Left Quality of pain: Pain, Aching Associated symptoms: AMS (has felt slow to answer questions and slightly off balance. Has had local headache since the injury.), Nausea / vomiting. No: LOC Symptoms worsen with: Palpation, Movement (headache more when active.) Contributing factors: No: Anticoagulated Similar symptoms before: Has not had sx before Recently seen: Not recently seen Review of Systems Constitutional: denies: Fever, Myalgias Nose: denies: Rhinorrhea / runny nose, Congestion Throat: denies: Sore throat Cardiac: denies: Chest pain / pressure Respiratory: denies: Cough GI: reports: Nausea. denies: Abdominal Pain, Vomiting, Diarrhea Skin: denies: Abrasion (s), Laceration (s) Neurologic: reports: Headache, Head injury. 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 : Chronic bladder infection, Nocturia HEENT: Chronic vision loss, Macular degeneration, Chronic hearing loss Psych: Claustrophobia Musculoskeletal: Osteoarthritis, Gout Derm: None - Past Surgical History Past Surgical History: Yes General: Bowel surgery HEENT: Cataracts - Present Medications Home Medications: Ambulatory Orders Medication Instructions Recorded Confirmed Cyanocobalamin (Vitamin B-12) 500 mcg PO DAILY 07/26/12 09/01/17 [Vitamin B-12 (500 mcg sublingual)] Lisinopril [Prinivil] 5 mg PO DAILY 07/26/12 09/01/17 Pyridoxine HCl [Vitamin B-6] 100 mg PO DAILY 07/26/12 09/01/17 Verapamil HCl [Verapamil ER] 240 mg PO DAILY 07/26/12 09/01/17 Montelukast [Singulair] 10 mg PO QPM 06/26/15 09/01/17 Albuterol Sulfate [Proair 2 puffs IH Q4H PRN 12/22/16 09/01/17 Respiclick] Allopurinol 300 mg PO DAILY 12/22/16 09/01/17 Aspirin 81 mg PO DAILY 12/22/16 09/01/17 Simvastatin 20 mg PO QPM 12/22/16 09/01/17 Cholecalciferol [Vitamin D3] 5,000 unit PO DAILY 08/15/17 09/01/17 Furosemide 20 mg PO DAILY 08/15/17 09/01/17 Theophylline Anhydrous [Carl-24] 300 mg PO DAILY 08/15/17 09/01/17 Mometasone/Formoterol [Dulera 100 1 puffs INH BID 09/01/17 09/01/17 Mcg/5 Mcg Inhaler] Omeprazole 10 mg PO QDAC 09/01/17 09/01/17 Levothyroxine [Synthroid] 125 mcg PO QDAC #10 tablet 09/02/17 cefUROXime axetil [Ceftin] 250 mg PO Q12H #14 tablet 09/02/17 Ondansetron HCl [Zofran] 4 mg PO Q6H PRN #20 tablet 12/28/17 - Allergies Allergies/Adverse Reactions: Allergies Allergy/AdvReac Type Severity Reaction Status Date / Time codeine [Codeine] Allergy Intermediate Itching Verified 12/28/17 19:10 - Social History Does the pt smoke?: No Smoking Status: Never smoker Does the pt drink ETOH?: No Does the pt have substance abuse?: No - Immunizations Immunizations are current?: Yes - POLST Patient has POLST: No POLST Status: DNR PD ED PE NORMAL - Vitals Vital signs reviewed: Yes - General General: Alert and oriented X 3, No acute distress, Well developed/nourished - HEENT HEENT: PERRL, Moist mucous membranes, Pharynx benign, Other (tender left scalp without deformity; mild swelling. ) - Neck Neck: Supple, no meningeal sign, No bony TTP, No adenopathy - Cardiac Cardiac: RRR, No murmur - Respiratory Respiratory: Clear bilaterally - Derm Derm: Normal color, Warm and dry - Neuro Neuro: Alert and oriented X 3, questioned documents examiner 2-12 intact, No motor deficit, No sensory deficit, Normal speech, Other Eye Opening: Spontaneous Motor: Obeys Commands Verbal: Oriented GCS Score: 15 Results - Vitals Vitals: Vital Signs - 24 hr 12/28/17 19:08 Temperature 37.3 C Heart Rate 100 Respiratory 18 Rate Blood Pressure 154/68 H O2 Saturation 93 Oxygen O2 Source Room air - Rads (name of study) head CT Radiology: Prelim report reviewed, EMP read contemporaneously PD MEDICAL DECISION MAKING - ED course Complexity details: reviewed results (head CT), considered differential (fell and hit head few days ago with ongoing headache and feeling off balance. Will get CT to ensure no ICH. ), d/w patient, d/w family Departure - Departure Disposition: 01 Home, Self Care Clinical Impression: Accidental fall Qualifiers: Encounter type: initial encounter Qualified Code(s): W19.XXXA - Unspecified fall, initial encounter Mild concussion Qualifiers: Encounter type: initial encounter Loss of consciousness presence/duration: without LOC Qualified Code(s): S06.0X0A - Concussion without loss of consciousness, initial encounter Head contusion Qualifiers: Encounter type: initial encounter Contusion of head detail: scalp Qualified Code(s): S00.03XA - Contusion of scalp, initial encounter Condition: Stable Record reviewed to determine appropriate education?: Yes Instructions: ED Concussion Follow-Up: Laura Mccabe MD [Primary Care Provider] - Prescriptions: Ondansetron HCl [Zofran] 4 mg PO Q6H PRN #20 tablet PRN Reason: Nausea / Vomiting Comments: There are no signs of fracture or bleeding or local swelling on the CT scan. Your symptoms would correlate with mild concussion. Expect some headache and nausea for a few days more. This should improve. Use Tylenol or ibuprofen or such as needed for pains. Ondansetron if needed for nausea. Follow-up with your primary care if still not improved over the next several days. Discharge Date/Time: 12/28/17 22:21
[2017-12-28] MEDS ORDERED: ONDANSETRON ODT 4 MG TABLET TL STA (20:45)
[2017-12-28] MEDS ORDERED: ACETAMINOPHEN 325 MG TABLET PO STA (20:46)
[2017-12-28] MEDS ORDERED: ONDANSETRON ODT 4 MG Prepack 2 TL PRN (21:39)
--- NOTE | 2017-12-28 21:44 | CT Report ---
Reason: fell struck head 3 days ago; persistent headache Procedure Date: 12/28/2017 Accession Number: [id number] / [id number] Procedure: CT - Head W/O CPT Code: FULL RESULT: EXAM: CT HEAD EXAM DATE: 12/28/2017 09:14 PM. CLINICAL HISTORY: Fell struck head 3 days ago; persistent headache. COMPARISON: HEAD W/O 08/08/2017 4:33 PM. TECHNIQUE: Multiaxial CT images were obtained from the foramen magnum to the vertex. Reformats: Sagittal and coronal. IV contrast: None. In accordance with CT protocol optimization, one or more of the following dose reduction techniques were utilized for this exam: automated exposure control, adjustment of mA and/or KV based on patient size, or use of iterative reconstructive technique. FINDINGS: Parenchyma: No intraparenchymal hemorrhage. No evidence of mass, midline shift, or CT findings of infarction. Silva-white differentiation is distinct. Extraaxial Spaces: Normal for age. No subdural or epidural collections identified. Ventricles: Normal in size and position. Sinuses and Orbits: Imaged paranasal sinuses, orbits, and mastoids show no significant abnormality. Bones: No evidence of fracture or calvarial defect. Other: None. IMPRESSION: No acute intracranial abnormality. RADIA
[2017-12-28 22:21] VITALS: BP 142/75
== END 2017-12-28 22:21 | disposition home or self-care (01) ==
LOC: ED 18:58
DX: S06.0X0A Concussion without loss of consciousness, initial encounter (principal); S00.03XA Contusion of scalp, initial encounter; W19.XXXA Unspecified fall, initial encounter; W22.09XA Striking against other stationary object, initial encounter; Y92.009 Unspecified place in unspecified non-institutional (private) residence as the place of occurrence of the external cause; I10 Essential (primary) hypertension; E11.42 Type 2 diabetes mellitus with diabetic polyneuropathy; E03.9 Hypothyroidism, unspecified; E78.00 Pure hypercholesterolemia, unspecified; Z86.73 Personal history of transient ischemic attack (TIA), and cerebral infarction without residual deficits; Z79.82 Long term (current) use of aspirin; Z79.84 Long term (current) use of oral hypoglycemic drugs
CPT/HCPCS: 70450; 99283; A9270; Q0162

== ENCOUNTER 2018-02-06 09:42 | Outpatient (CLI) | payer MEDICARE, OTHER | END 2018-02-06 09:43 | disposition critical access hospital (66) | LOC: EMS 09:42 | PROVIDERS: ATTEND Surgery | DX: R11.2 Nausea with vomiting, unspecified (principal); R41.0 Disorientation, unspecified | CPT/HCPCS: A0425; A0427 ==

== ENCOUNTER 2018-02-06 10:18 | Emergency (ER) | payer MEDICARE, OTHER ==
[2018-02-06] MEDS ORDERED: SODIUM CHLORIDE 0.9% 1,000 ML IV ONE ×2 (10:22→14:11)
[2018-02-06 10:45] LABS: BASOPHILS # (AUTO) 0.1 10^3/uL (0.0-0.1); BASOPHILS % (AUTO) 0.6 %; HGB - HEMOGLOBIN 14.2 g/dL (12.0-16.0); LYMPHOCYTES # (AUTO) 0.9 10^3/uL (1.5-3.5); LYMPHOCYTES % (AUTO) 8.5 %; MEAN CORPUSCULAR HEMOGLOBIN 29.7 pg (27.0-31.0); MEAN CORPUSCULAR HGB CONC 32.9 g/dL (32.0-36.0); MEAN CORPUSCULAR VOLUME 90.2 fL (81.0-99.0); MEAN PLATELET VOLUME 8.7 fL (7.9-10.8); MONOCYTES # (AUTO) 0.4 10^3/uL (0.0-1.0); NEUTROPHILS # (AUTO) 9.4 10^3/uL (1.5-6.6); NEUTROPHILS % (AUTO) 86.9 %; PLT - PLATELET COUNT 192 10^3/uL (130-450); RED BLOOD COUNT 4.79 10^6/uL (4.20-5.40); RED CELL DISTRIBUTION WIDTH 16.8 % (12.0-15.0); WHITE BLOOD COUNT 10.8 x10^3/uL (4.8-10.8)
[2018-02-06 11:00] LABS: ALBUMIN 4.2 g/dL (3.2-5.5); ALBUMIN/GLOBULIN RATIO 1.1 (1.0-2.2); BILIRUBIN,TOTAL 1.3 mg/dL (0.2-1.0); CALCIUM 9.1 mg/dL (8.5-10.3); CREATININE 0.8 mg/dL (0.4-1.0); TOTAL PROTEIN 8.2 g/dL (6.7-8.2)
[2018-02-06 11:19] LABS: BILIRUBIN,URINE NEGATIVE (NEGATIVE); GLUCOSE, URINE (UA) NEGATIVE (NEGATIVE); KETONES,URINE (UA) 15 mg/dL (NEGATIVE); LEUKOCYTE ESTERASE, URINE NEGATIVE (NEGATIVE); NITRITE,URINE NEGATIVE (NEGATIVE); OCCULT BLOOD,URINE TRACE-INTA (NEGATIVE); PH,URINE 6.5 PH (5.0-7.5); PROTEIN,URINE 100 mg/dL (NEGATIVE); UROBILINOGEN,URINE 0.2 (NORMAL) E.U./dL (NORMAL)
[2018-02-06 11:32] LABS: CLARITY,URINE CLEAR (CLEAR)
[2018-02-06 11:33] LABS: BACTERIA,URINE None Seen /HPF (None Seen); RBC,URINE 0-5 /HPF (0-5); SQUAMOUS EPITHELIAL CELL,UR RARE Squamous (<= Few)
--- NOTE | 2018-02-06 13:57 | ED Physician Documentation ---
History of Present Illness - Stated complaint Stated Complaint: DEHYDRATION - Chief complaint Chief Complaint: Abd Pain - History obtained from History obtained from: Patient, EMS - Additonal information Additional information: The patient is a 87-year-old female who arrives via ambulance. Her son called 911 today because patient had been vomiting, and appeared confused with decreased level of alertness this morning. He thinks the vomiting was caused by bed eggnog that they drank yesterday during gi. The son reports he also has been vomiting. History is not able to be reliably obtained from the patient, who has dementia. Paramedics have administered 900 mL normal saline while in route, and states the patient's renal status has improved since that treatment. Her blood sugar was 155. The patient denies chest pain, shortness of breath, abdominal pain, diarrhea, dysuria, fever, or headache. Review of Systems Constitutional: reports: Fatigue. denies: Fever Nose: denies: Congestion Throat: denies: Sore throat Cardiac: denies: Chest pain / pressure Respiratory: denies: Dyspnea, Cough GI: reports: Vomiting. denies: Abdominal Pain, Diarrhea : denies: Dysuria Skin: denies: Rash Musculoskeletal: denies: Back pain Neurologic: reports: Generalized weakness, Confused. 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 : Chronic bladder infection, Nocturia HEENT: Chronic vision loss, Macular degeneration, Chronic hearing loss Psych: Claustrophobia Musculoskeletal: Gout Derm: None - Past Surgical History Past Surgical History: Yes General: Bowel surgery HEENT: Cataracts - Present Medications Home Medications: Ambulatory Orders Medication Instructions Recorded Confirmed Cyanocobalamin (Vitamin B-12) 500 mcg PO DAILY 07/26/12 09/01/17 [Vitamin B-12 (500 mcg sublingual)] Lisinopril [Prinivil] 5 mg PO DAILY 07/26/12 09/01/17 Pyridoxine HCl [Vitamin B-6] 100 mg PO DAILY 07/26/12 09/01/17 Verapamil HCl [Verapamil ER] 240 mg PO DAILY 07/26/12 09/01/17 Montelukast [Singulair] 10 mg PO QPM 06/26/15 09/01/17 Albuterol Sulfate [Proair 2 puffs IH Q4H PRN 12/22/16 09/01/17 Respiclick] Allopurinol 300 mg PO DAILY 12/22/16 09/01/17 Aspirin 81 mg PO DAILY 12/22/16 09/01/17 Simvastatin 20 mg PO QPM 12/22/16 09/01/17 Cholecalciferol [Vitamin D3] 5,000 unit PO DAILY 08/15/17 09/01/17 Furosemide 20 mg PO DAILY 08/15/17 09/01/17 Theophylline Anhydrous [Carl-24] 300 mg PO DAILY 08/15/17 09/01/17 Mometasone/Formoterol [Dulera 100 1 puffs INH BID 09/01/17 09/01/17 Mcg/5 Mcg Inhaler] Omeprazole 10 mg PO QDAC 09/01/17 09/01/17 Levothyroxine [Synthroid] 125 mcg PO QDAC #10 tablet 09/02/17 cefUROXime axetil [Ceftin] 250 mg PO Q12H #14 tablet 09/02/17 Ondansetron HCl [Zofran] 4 mg PO Q6H PRN #20 tablet 12/28/17 Allopurinol 02/06/18 Furosemide [Lasix] 02/06/18 Hydrochlorothiazide 02/06/18 Levothyroxine [Synthroid] 02/06/18 Lisinopril 02/06/18 Meclizine [Antivert] 02/06/18 Montelukast [Singulair] 02/06/18 Promethazine [Phenergan] 25 mg PO Q6H PRN #10 tab 02/06/18 Simvastatin 02/06/18 Verapamil [Calan] 02/06/18 - Allergies Allergies/Adverse Reactions: Allergies Allergy/AdvReac Type Severity Reaction Status Date / Time codeine [Codeine] Allergy Intermediate Itching Verified 12/28/17 19:10 - Living Situation Living Situation: reports: With family Living Arrangement: reports: At home - Social History Does the pt smoke?: No Smoking Status: Never smoker Does the pt drink ETOH?: No Does the pt have substance abuse?: No - Immunizations Immunizations are current?: Yes - POLST Patient has POLST: No POLST Status: DNR PD ED PE NORMAL - Vitals Vital signs reviewed: Yes (hypertensive and tachycardic.) - General General: Other (Awake but confused elderly female, who appears dehydrated and somewhat disheveled.) - HEENT HEENT: Atraumatic, PERRL, EOMI, Pharynx benign, Other (Dry mucous membranes.) - Neck Neck: Supple, no meningeal sign, No adenopathy, No JVD - Cardiac Cardiac: No murmur, Other (Rapid rate, regular rhythm.) - Respiratory Respiratory: No respiratory distress, Clear bilaterally - Abdomen Abdomen: Soft, Non tender - Back Back: No CVA TTP, No spinal TTP - Derm Derm: No rash - Extremities Extremities: No deformity, No tenderness to palpate, No edema, No calf tenderness / cord - Neuro Neuro: No motor deficit, Other (Awake but confused. Generalized weakness, with no focal motor or sensory deficit detected) Eye Opening: Spontaneous Motor: Obeys Commands Verbal: Confused GCS Score: 14 Results - Vitals Vitals: Vital Signs - 24 hr 02/06/18 02/06/18 02/06/18 10:15 11:30 14:21 Temperature 36.5 C Heart Rate 122 H 120 H 128 H Respiratory 16 16 Rate Blood Pressure 162/92 H 154/87 H 137/69 H O2 Saturation 95 91 L 92 02/06/18 02/06/18 14:25 17:00 Temperature Heart Rate 108 H 100 Respiratory 22 20 Rate Blood Pressure 145/80 H 140/80 H O2 Saturation 94 94 Oxygen O2 Source Room air - EKG (time done) 10:51 Rate: Rate (enter#) (120) Rhythm: Sinus tachycardia, LAE, Other (PAC's) [place]: Normal QRS: LVH Ischemia: Q waves (in III, not new.), Non specific changes Compare to prior EKG: Changed from prior EKG (When compared to 08/14/17, PRWP is no longer present.) Computer interpretation: Agree with computer - Labs Labs: Laboratory Tests 02/06/18 02/06/18 02/06/18 10:39 10:39 10:39 WBC 10.8 RBC 4.79 Hgb 14.2 Hct 43.2 MCV 90.2 MCH 29.7 MCHC 32.9 RDW 16.8 H Plt Count 192 MPV 8.7 Neut # (Auto) 9.4 H Lymph # (Auto) 0.9 [place] # (Auto) 0.4 Eos # (Auto) 0.0 Baso # (Auto) 0.1 Absolute Nucleated RBC 0.00 Nucleated RBC % 0.0 Sodium 134 L Potassium 3.9 Chloride 97 L Carbon Dioxide 22 Anion Gap 15.0 H BUN 21 H Creatinine 0.8 Estimated GFR (MDRD) 68 L Glucose 118 H Lactic Acid Calcium 9.1 Total Bilirubin 1.3 H AST 26 ALT 14 Alkaline Phosphatase 83 Troponin I 0.07 Total Protein 8.2 Albumin 4.2 Globulin 4.0 Albumin/Globulin Ratio 1.1 Lipase 21 L Urine Color Urine Clarity Urine pH Ur Specific [place] Urine Protein Urine Glucose (UA) Urine Ketones Urine Occult Blood Urine Nitrite Urine Bilirubin Urine Urobilinogen Ur Leukocyte Esterase Urine RBC Urine WBC Ur Squamous Epith Cells Urine Bacteria Ur Microscopic Review Urine Culture Comments 02/06/18 02/06/18 02/06/18 10:39 11:15 14:04 WBC RBC Hgb Hct MCV MCH MCHC RDW Plt Count MPV Neut # (Auto) Lymph # (Auto) [place] # (Auto) Eos # (Auto) Baso # (Auto) Absolute Nucleated RBC Nucleated RBC % Sodium Potassium Chloride Carbon Dioxide Anion Gap BUN Creatinine Estimated GFR (MDRD) Glucose Lactic Acid 2.2 Calcium Total Bilirubin AST ALT Alkaline Phosphatase Troponin I 0.07 Total Protein Albumin Globulin Albumin/Globulin Ratio Lipase Urine Color YELLOW Urine Clarity CLEAR Urine pH 6.5 Ur Specific [place] 1.025 Urine Protein 100 H Urine Glucose (UA) NEGATIVE Urine Ketones 15 H Urine Occult Blood TRACE-INTA Urine Nitrite NEGATIVE Urine Bilirubin NEGATIVE Urine Urobilinogen 0.2 (NORMAL) Ur Leukocyte Esterase NEGATIVE Urine RBC 0-5 Urine WBC 0-3 Ur Squamous Epith Cells RARE Squamous Urine Bacteria None Seen Ur Microscopic Review INDICATED Urine Culture Comments NOT INDICATED PD MEDICAL DECISION MAKING - ED course Complexity details: reviewed old records, reviewed results, re-evaluated patient, considered differential, d/w patient, d/w family ED course: The patient's presentation is significant for vomiting with dehydration, with associated tachycardia and decreased mental status. BUN was elevated at 21 with a creatinine of 0.8. Urinalysis reveals concentrated urine, without evidence of infection. There is no evidence to suggest pulmonary infection, and her abdomen is benign to examination. Electrocardiogram reveals no acute abnormality, and to troponin levels 4 hours apart, or steady at 0.07, well within the normal range. Treatment in the emergency department included administration of normal saline 2 L IV. Her mental status gradually improved over the course of her treatment time, and she demonstrated ability to ambulate without lightheadedness. She remained tachycardic in the 100-120 range. Metoprolol 5 mg is administered IV, and her heart rate subsequently decreased into the 90s. She is being discharged in significantly improved condition. I do not think hospitalization would be clinically beneficial at this time. She had no further episodes of vomiting while in the emergency department, and demonstrated ability to drink fluids without recurrent nausea. I discussed with her and her son symptomatic treatment, outpatient follow-up, as well as potentially worrisome signs or symptoms that should prompt reevaluation in the emergency department. Departure - Departure Disposition: 01 Home, Self Care Clinical Impression: Dehydration Vomiting Qualifiers: Vomiting type: unspecified Vomiting Intractability: non-intractable Nausea presence: unspecified Qualified Code(s): R11.10 - Vomiting, unspecified Condition: Stable Instructions: ED Dehydration Follow-Up: Laura Mccabe MD [Provider Admit Priv/Credential] - Prescriptions: Promethazine [Phenergan] 25 mg PO Q6H PRN #10 tab PRN Reason: Nausea / Vomiting Comments: Drink plenty of fluids. You can use Phenergan as prescribed if needed for nausea. Follow-up with your primary physician within 1-2 weeks. Call to schedule appointment. Return to the emergency department if you develop increasing abdominal pain, persistent vomiting, recurrent dehydration, or otherwise worsening symptoms. Discharge Date/Time: 02/06/18 17:19
[2018-02-06] MEDS ORDERED: METOPROLOL 5 MG/5 ML VIAL IVP STA (14:11)
[2018-02-06 17:18] VITALS: BP 140/80
== END 2018-02-06 17:19 | disposition home or self-care (01) ==
LOC: EDUNIT# → ED 10:18
DX: E86.0 Dehydration (principal); R11.10 Vomiting, unspecified; R00.0 Tachycardia, unspecified; R94.31 Abnormal electrocardiogram [ECG] [EKG]; I10 Essential (primary) hypertension; F03.90 Unspecified dementia, unspecified severity, without behavioral disturbance, psychotic disturbance, mood disturbance, and anxiety; Z79.82 Long term (current) use of aspirin
CPT/HCPCS: 36415; 51701; 80053; 81001; 81003; 83605; 83690; 84484; 85025; 87086; 93005; 96361; 96374; 99284; 99285

== ENCOUNTER 2018-03-19 11:04 | Outpatient (CLI) | payer MEDICARE, OTHER | END 2018-03-19 11:05 | disposition short-term general hospital (02) | LOC: EMS 11:04 | PROVIDERS: ATTEND Surgery | DX: R51 Headache (principal); R53.1 Weakness; R11.0 Nausea | CPT/HCPCS: A0425; A0427 ==

== ENCOUNTER 2018-05-01 17:54 | Outpatient (CLI) | payer MEDICARE, OTHER | END 2018-05-01 17:55 | disposition critical access hospital (66) | LOC: EMS 17:54 | PROVIDERS: ATTEND Surgery | DX: R06.00 Dyspnea, unspecified (principal) | CPT/HCPCS: A0425; A0427 ==

== ENCOUNTER 2018-05-01 18:27 | Observation (INO) | payer MEDICARE, OTHER ==
[2018-05-01] MEDS ORDERED: IPRATROPIUM/ALBUTEROL 3 ML NEB INH STA (18:55)
[2018-05-01] MEDS ORDERED: SODIUM CHLORIDE 0.9% 500 ML IV ONE (18:55)
[2018-05-01 19:02] LABS: BASOPHILS # (AUTO) 0.1 10^3/uL (0.0-0.1); EOSINOPHILS # (AUTO) 0.2 10^3/uL (0.0-0.7); EOSINOPHILS % (AUTO) 2.6 %; HGB - HEMOGLOBIN 14.6 g/dL (12.0-16.0); LYMPHOCYTES # (AUTO) 1.8 10^3/uL (1.5-3.5); LYMPHOCYTES % (AUTO) 21.2 %; MEAN CORPUSCULAR HEMOGLOBIN 29.3 pg (27.0-31.0); MEAN CORPUSCULAR HGB CONC 31.9 g/dL (32.0-36.0); MEAN CORPUSCULAR VOLUME 91.8 fL (81.0-99.0); MEAN PLATELET VOLUME 9.1 fL (7.9-10.8); MONOCYTES # (AUTO) 0.5 10^3/uL (0.0-1.0); MONOCYTES % (AUTO) 5.5 %; NEUTROPHILS # (AUTO) 5.8 10^3/uL (1.5-6.6); NEUTROPHILS % (AUTO) 69.7 %; PLT - PLATELET COUNT 173 10^3/uL (130-450); RED BLOOD COUNT 4.98 10^6/uL (4.20-5.40); RED CELL DISTRIBUTION WIDTH 15.2 % (12.0-15.0); WHITE BLOOD COUNT 8.4 x10^3/uL (4.8-10.8)
[2018-05-01 19:04] LABS: VBG BASE EXCESS -7.2 mmol/L (-2 - +2); VBG PCO2 49.4 mmHg (41-51); VBG PH 7.235 (7.31-7.41); VBG PO2 25.8 mmHg (25-47)
[2018-05-01 19:07] LABS: INR 1.1 (0.8-1.2)
[2018-05-01 19:15] LABS: ALBUMIN 4.4 g/dL (3.2-5.5); ALBUMIN/GLOBULIN RATIO 1.1 (1.0-2.2); BILIRUBIN,TOTAL 0.7 mg/dL (0.2-1.0); CALCIUM 10.4 mg/dL (8.5-10.3); CREATININE 1.2 mg/dL (0.4-1.0); TOTAL PROTEIN 8.5 g/dL (6.7-8.2)
--- NOTE | 2018-05-01 19:16 | ED Physician Documentation ---
History of Present Illness - Stated complaint Stated Complaint: SOA - Chief complaint Chief Complaint: Resp - Additonal information Additional information: 87-year-old female presents the emergency department by EMS for worsening shortness of breath on exertion with wheezing. The patient has a history of severe lung disease and normally can only walk 50-100 feet before she is short of breath but currently has been so short of breath she can only go 10 feet before she becomes wheezy and short of breath. Tonight her symptoms were worse. The patient denies fevers or chills. No triggering factors. No relieving factors. No other associated symptoms Review of Systems Constitutional: denies: Fever, Chills, Fatigue Eyes: denies: Discharge Ears: denies: Ear pain Nose: denies: Congestion Throat: denies: Sore throat Cardiac: denies: Chest pain / pressure Respiratory: reports: Dyspnea, Wheezing GI: denies: Abdominal Pain : denies: Dysuria Musculoskeletal: denies: Neck pain Neurologic: denies: Generalized weakness PD PAST MEDICAL HISTORY - Past Medical History Cardiovascular: Hypertension, High cholesterol Respiratory: Asthma, COPD, Emphysema, Pneumonia, Shortness of breath Neuro: TIA, Peripheral neuropathy Endocrine/Autoimmune: HyPOthyroidism GI: GERD, Hiatal hernia 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 : Chronic bladder infection, Nocturia HEENT: Chronic vision loss, Macular degeneration, Chronic hearing loss Psych: Claustrophobia Musculoskeletal: Gout Derm: None - Past Surgical History Past Surgical History: Yes General: Bowel surgery HEENT: Cataracts - Present Medications Home Medications: Ambulatory Orders Medication Instructions Recorded Confirmed Cyanocobalamin (Vitamin B-12) 500 mcg PO DAILY 07/26/12 09/01/17 [Vitamin B-12 (500 mcg sublingual)] Lisinopril [Prinivil] 5 mg PO DAILY 07/26/12 09/01/17 Pyridoxine HCl [Vitamin B-6] 100 mg PO DAILY 07/26/12 09/01/17 Verapamil HCl [Verapamil ER] 240 mg PO DAILY 07/26/12 09/01/17 Montelukast [Singulair] 10 mg PO QPM 06/26/15 09/01/17 Albuterol Sulfate [Proair 2 puffs IH Q4H PRN 12/22/16 09/01/17 Respiclick] Allopurinol 300 mg PO DAILY 12/22/16 09/01/17 Aspirin 81 mg PO DAILY 12/22/16 09/01/17 Simvastatin 20 mg PO QPM 12/22/16 09/01/17 Cholecalciferol [Vitamin D3] 5,000 unit PO DAILY 08/15/17 09/01/17 Furosemide 20 mg PO DAILY 08/15/17 09/01/17 Theophylline Anhydrous [Carl-24] 300 mg PO DAILY 08/15/17 09/01/17 Mometasone/Formoterol [Dulera 100 1 puffs INH BID 09/01/17 09/01/17 Mcg/5 Mcg Inhaler] Omeprazole 10 mg PO QDAC 09/01/17 09/01/17 Levothyroxine [Synthroid] 125 mcg PO QDAC #10 tablet 09/02/17 cefUROXime axetil [Ceftin] 250 mg PO Q12H #14 tablet 09/02/17 Ondansetron HCl [Zofran] 4 mg PO Q6H PRN #20 tablet 12/28/17 Allopurinol 02/06/18 Furosemide [Lasix] 02/06/18 Hydrochlorothiazide 02/06/18 Levothyroxine [Synthroid] 02/06/18 Lisinopril 02/06/18 Meclizine [Antivert] 02/06/18 Montelukast [Singulair] 02/06/18 Promethazine [Phenergan] 25 mg PO Q6H PRN #10 tab 02/06/18 Simvastatin 02/06/18 Verapamil [Calan] 02/06/18 - Allergies Allergies/Adverse Reactions: Allergies Allergy/AdvReac Type Severity Reaction Status Date / Time codeine [Codeine] Allergy Intermediate Itching Verified 12/28/17 19:10 - Social History Does the pt smoke?: No Smoking Status: Never smoker Does the pt drink ETOH?: No Does the pt have substance abuse?: No - Immunizations Immunizations are current?: Yes - POLST Patient has POLST: No POLST Status: DNR PD ED PE NORMAL - General General: Alert and oriented X 3. No: No acute distress (Frail 87-year-old female who appears short of breath with mild respiratory distress) - HEENT HEENT: Atraumatic, PERRL, EOMI - Cardiac Cardiac: RRR, Strong equal pulses - Respiratory Respiratory: No: No respiratory distress, Clear bilaterally (The patient has mild respiratory distress with bilateral wheezing and poor aeration) - Abdomen Abdomen: Soft - Derm Derm: Normal color - Extremities Extremities: No deformity - Neuro Neuro: Alert and oriented X 3, Normal speech - Psych Psych: Normal affect Results - Vitals Vitals: Vital Signs - 24 hr 05/01/18 05/01/18 05/01/18 18:28 18:35 19:28 Temperature 36.6 C 36.6 C Heart Rate 52 L 52 L 116 H Respiratory 16 16 12 Rate Blood Pressure 145/86 H 145/86 H O2 Saturation 98 98 05/01/18 20:30 Temperature Heart Rate 124 H Respiratory 20 Rate Blood Pressure 127/68 O2 Saturation 95 Oxygen O2 Source Room air - Labs Labs: Laboratory Tests 05/01/18 05/01/18 05/01/18 18:50 18:50 18:50 WBC 8.4 RBC 4.98 Hgb 14.6 Hct 45.7 MCV 91.8 MCH 29.3 MCHC 31.9 L RDW 15.2 H Plt Count 173 MPV 9.1 Neut # (Auto) 5.8 Lymph # (Auto) 1.8 [place] # (Auto) 0.5 Eos # (Auto) 0.2 Baso # (Auto) 0.1 Absolute Nucleated RBC 0.00 Nucleated RBC % 0.0 PT INR VBG pH VBG pCO2 VBG pO2 VBG HCO3 VBG Total CO2 VBG O2 Saturation VBG Base Excess Sodium 139 Potassium 4.1 Chloride 104 Carbon Dioxide 22 Anion Gap 13.0 BUN 43 H Creatinine 1.2 H Estimated GFR (MDRD) 42 L Glucose 108 H Calcium 10.4 H Total Bilirubin 0.7 AST 22 ALT 15 Alkaline Phosphatase 69 Troponin I 0.06 B-Natriuretic Peptide Total Protein 8.5 H Albumin 4.4 Globulin 4.1 Albumin/Globulin Ratio 1.1 Lipase 49 05/01/18 05/01/18 05/01/18 18:50 18:50 18:50 WBC RBC Hgb Hct MCV MCH MCHC RDW Plt Count MPV Neut # (Auto) Lymph # (Auto) [place] # (Auto) Eos # (Auto) Baso # (Auto) Absolute Nucleated RBC Nucleated RBC % PT 12.0 INR 1.1 VBG pH 7.235 L VBG pCO2 49.4 VBG pO2 25.8 VBG HCO3 20.5 L VBG Total CO2 22.0 L VBG O2 Saturation 42.8 L VBG Base Excess -7.2 L Sodium Potassium Chloride Carbon Dioxide Anion Gap BUN Creatinine Estimated GFR (MDRD) Glucose Calcium Total Bilirubin AST ALT Alkaline Phosphatase Troponin I B-Natriuretic Peptide 77 Total Protein Albumin Globulin Albumin/Globulin Ratio Lipase - Rads (name of study) CXR Radiology: Final report received, See rad report (1. No acute cardiopulmonary abnormality. ) CTA chest Radiology: Final report received, See rad report (IMPRESSION: 1. Negative for pulmonary embolism at this time. 2. 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 3. Coronary artery calcifications. 4. Chronic lung disease similar to previous exam.) PD MEDICAL DECISION MAKING - ED course ED course: 87-year-old female who has severe COPD, the patient's symptoms have improved with treatment in the emergency department but given the frail nature of the patient's and her severe condition she will require admission to the hospital. The patient has prolonged tachycardia with an unclear etiology. The findings and plan were discussed with the hospitalist Dr. Peter who accepts the patient onto his service. The patient understands and agrees to the plan Departure - Departure Disposition: ED Place in Observation Clinical Impression: COPD with acute exacerbation, Tachycardia, Weakness, Respiratory distress
[2018-05-01] MEDS ORDERED: IOVERSOL 320 100 ML VIAL IVP ONE ×2 (19:55→20:13)
--- NOTE | 2018-05-01 20:33 | XRAY Report ---
Reason: soa Procedure Date: 05/01/2018 Accession Number: [id number] / [id number] Procedure: XR - Chest 2 View X-Ray CPT Code: 83282 FULL RESULT: EXAM: CHEST RADIOGRAPHY EXAM DATE: 05/01/2018 08:00 PM. CLINICAL HISTORY: Shortness of air COMPARISON: CHEST 2 VIEW 09/01/2017 11:52 AM. TECHNIQUE: 2 views. FINDINGS: Lungs/Pleura: There are reticular opacities in the right upper lobe. No consolidative process or pulmonary edema. Negative for pleural effusion and pneumothorax. Mediastinum: Heart size is normal. Trachea is midline. There is moderate calcification of the thoracic aorta. Other: None. IMPRESSION: 1. No acute cardiopulmonary abnormality. RADIA
--- NOTE | 2018-05-01 20:40 | CT Report ---
Reason: soa, elevated HR Procedure Date: 05/01/2018 Accession Number: [id number] / [id number] Procedure: CT - Chest Angio (PE) CPT Code: FULL RESULT: EXAM: CT ANGIOGRAM CHEST EXAM DATE: 05/01/2018 08:11 PM. CLINICAL HISTORY: Soa, elevated HR. COMPARISON: CHEST ANGIO 08/14/2017 5:39 PM CHEST 2 VIEW 05/01/2018 7:33 PM. TECHNIQUE: Routine helical imaging was performed through the chest in the pulmonary arterial phase. IV Contrast: OPTI 320 80 ML. Reconstructions: Sagittal, coronal, and 3D MIP. In accordance with CT protocol optimization, one or more of the following dose reduction techniques were utilized for this exam: automated exposure control, adjustment of mA and/or KV based on patient size, or use of iterative reconstructive technique. FINDINGS: Pulmonary Arteries: Diagnostic quality: Adequate through the segmental arteries. No evidence for acute or chronic pulmonary emboli. RV/LV is within normal limits. There is no interventricular septal bowing. There is marked reflux of contrast material in the IVC indicating right heart dysfunction. Lungs/Pleura: Respiratory motion artifact. Allowing for this, prominent scarring and fibrotic change predominantly in the right upper lobe, including a small amount of bronchiectasis. Atelectasis versus chronic change in the posterior sulci. Overall appearance similar to previous exam. No definite acute infiltrate, consolidation, effusion, or pneumothorax. Mediastinum: Overall heart size upper limit of normal. No pericardial effusion. At least 2 vessel coronary artery calcification. No lymphadenopathy. Thoracic Aorta: Unremarkable. Upper Abdomen: Unremarkable. Other: Degenerative changes. Multiple old rib fractures. IMPRESSION: 1. Negative for pulmonary embolism at this time. 2. 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 3. Coronary artery calcifications. 4. Chronic lung disease similar to previous exam. RADIA
[2018-05-01] MEDS ORDERED: predniSONE 20 MG TABLET PO STA (20:55)
[2018-05-01] MEDS ORDERED: DOXYCYCLINE 100 MG TABLET PO STA (20:55)
[2018-05-01] MEDS ORDERED: SODIUM CHLORIDE FLUSH 0.9% 10 ML SYRINGE IVP PRN (22:07)
[2018-05-01] MEDS ORDERED: ACETAMINOPHEN 325 MG TABLET PO PRN (22:07)
[2018-05-02] MEDS ORDERED: VERAPAMIL ER 180 MG TABLET PO STA (00:22)
[2018-05-02] MEDS ORDERED: VERAPAMIL ER 120 MG TABLET PO STA (00:35)
--- NOTE | 2018-05-02 01:08 | HISTORY & PHYSICAL EXAMINATION ---
Chief Complaint - Chief Complaint Chief Complaint: dyspnea History of Present Illness - Admitted From Admitted From:: [facility] - History Obtained From Records Reviewed: yes History obtained from: patient and records - History of Present Illness HPI Comment/Other: Patient is an 87 y/o female who presented to the ED with complain of dyspnea. Onset was around 3pm on 05/01/18. She reports that she is having difficult walking 10ft when she used to be able to walk 50-100 ft with no difficulty. It was reported that upon presentation there was no significant air movement on auscultation so she was given a breathing treatment. At the time of this exam patient appeared very comfortable. She was breathing comfortable on room air. There was no conversational dyspnea, cough or wheezing. She also denied chest pain, abd pain, n/v/d, fever or chills. She was however persistently tachycardic. EKG was checked twice and showed sinus tachycardia with heart rates between 120's-130's. However her rhythm would intermittently suggest atrial fibrillation on telemetry screen. She is supposed to be on verapamil 240mg ER daily but she has not taken in about 2 weeks because she ran out of her medications. The rest of her history is unremarkable History - Past Medical History Cardiovascular: reports: Hypertension, High cholesterol Respiratory: reports: Asthma, COPD, Emphysema, Pneumonia, Shortness of breath Neuro: reports: TIA, Parkinson's, Peripheral neuropathy Endocrine/Autoimmune: reports: HyPOthyroidism GI: reports: GERD, Hiatal hernia STEWARD/STEWARDESS SECOND: reports: None : reports: Chronic bladder infection, Nocturia HEENT: reports: Chronic vision loss, Macular degeneration, Chronic hearing loss Psych: reports: Claustrophobia Musculoskeletal: reports: Gout Derm: reports: None MRSA Hx?: No - Past Surgical History General: reports: Bowel surgery HEENT: reports: Cataracts - Family & Social History Family History: Mother: , CAD, Father: , Cancer (Dad had leukemia), Sister: CAD, Brother: [place] Family History Comment/Other: She is now. She had three children. She is living with her one son in [place] now. Social History Notes: The patient lives in [place] with her son. She is and was to her for 42 years before he many years ago now. She has 3 children 1 of whom . She is retired. She still is able to do all of her activities of daily living independently. She uses a cane and walker to get around at home but is still ambulatory. She quit smoking in 1975 prior to that she smoked a half a pack a day for about 27 years. She denies any alcohol use or any illicit drug use. - Substance History Use: Uses substance without health or social issues: NONE - POLST Patient has POLST: No POLST Status: DNR Meds/Allgy - Home Medications Home Medications: Ambulatory Orders Medication Instructions Recorded Confirmed Cyanocobalamin (Vitamin B-12) 500 mcg PO DAILY 07/26/12 09/01/17 [Vitamin B-12 (500 mcg sublingual)] Lisinopril [Prinivil] 5 mg PO DAILY 07/26/12 09/01/17 Pyridoxine HCl [Vitamin B-6] 100 mg PO DAILY 07/26/12 09/01/17 Verapamil HCl [Verapamil ER] 240 mg PO DAILY 07/26/12 09/01/17 Montelukast [Singulair] 10 mg PO QPM 06/26/15 09/01/17 Albuterol Sulfate [Proair 2 puffs IH Q4H PRN 12/22/16 09/01/17 Respiclick] Allopurinol 300 mg PO DAILY 12/22/16 09/01/17 Aspirin 81 mg PO DAILY 12/22/16 09/01/17 Simvastatin 20 mg PO QPM 12/22/16 09/01/17 Cholecalciferol [Vitamin D3] 5,000 unit PO DAILY 08/15/17 09/01/17 Furosemide 20 mg PO DAILY 08/15/17 09/01/17 Theophylline Anhydrous [Carl-24] 300 mg PO DAILY 08/15/17 09/01/17 Mometasone/Formoterol [Dulera 100 1 puffs INH BID 09/01/17 09/01/17 Mcg/5 Mcg Inhaler] Omeprazole 10 mg PO QDAC 09/01/17 09/01/17 Levothyroxine [Synthroid] 125 mcg PO QDAC #10 tablet 09/02/17 cefUROXime axetil [Ceftin] 250 mg PO Q12H #14 tablet 09/02/17 Ondansetron HCl [Zofran] 4 mg PO Q6H PRN #20 tablet 12/28/17 Allopurinol 02/06/18 Furosemide [Lasix] 02/06/18 Hydrochlorothiazide 02/06/18 Levothyroxine [Synthroid] 02/06/18 Lisinopril 02/06/18 Meclizine [Antivert] 02/06/18 Montelukast [Singulair] 02/06/18 Promethazine [Phenergan] 25 mg PO Q6H PRN #10 tab 02/06/18 Simvastatin 02/06/18 Verapamil [Calan] 02/06/18 - Allergies Allergies/Adverse Reactions: Allergies Allergy/AdvReac Type Severity Reaction Status Date / Time codeine [Codeine] Allergy Intermediate Itching Verified 12/28/17 19:10 Review of Systems - Constitutional Constitutional: denies: Fever, Chills - Eyes Eyes: denies: Blurred vision, Vision loss, Dipolpia - Ears, Nose & Throat Ears, Nose & Throat: denies: Vertigo, Nasal pain, Sore throat - Cardiovascular Cariovascular: reports: Palpitations. denies: Chest pain, Edema, Lightheadedness, Syncope - Respiratory Respiratory: reports: Wheezing, SOB at rest, SOB with exertion. denies: Cough, Sputum production - Gastrointestinal Gastrointestinal: denies: Abdominal pain, Abdominal distention, Constipation, Diarrhea, Nausea, Vomiting - Genitourinary Genitourinary: denies: Dysuria, Frequency, Urgency, Hematuria - Musculoskeletal Musculoskeletal: denies: Back pain - Integumentary Integumentary: denies: Rash, Lesions, Dryness - Neurological Neurological: denies: General weakness, Headache, Dizziness - Psychiatric Psychiatric: denies: Anxiety, Delusions, Hallucinations - Endocrine Endocrine: denies: Polyuria, Polydypsia - Hematologic/Lymphatic Hematologic/Lymphatic: denies: Anemia, Bruising, Petechiae Prior Level of Functionality: Patient lives with her son. She is able to do her own chores like laundry, cooking and cleaning She does not drive. She mostly walks around unaided but has a walker if/ when needed She was recently assessed for oxygen need and determined she was not a candidate for home oxygen Exam - Vital Signs Vital Signs: Vital Signs x48h Temp Pulse Pulse Resp BP BP Pulse Ox 05/01/18 23:40 37.0 C 120 H 18 134/83 H 96 05/01/18 23:19 36.5 C 123 H 16 95/53 L 95 05/01/18 20:30 124 H 20 127/68 95 05/01/18 19:28 116 H 12 05/01/18 18:35 36.6 C 52 L 16 145/86 H 98 05/01/18 18:28 36.6 C 52 L 16 145/86 H 98 - Physical Exam General Appearance: positive: No acute distress Eyes Bilateral: positive: Normal inspection, PERRL, EOMI, No scleral icterus ENT: positive: ENT inspection nml Neck: positive: Nml inspection, No JVD, Trachea midline Respiratory: positive: Chest non-tender, No respiratory distress, Breath sounds nml. negative: Wheezes, Rales, Rhonchi Cardiovascular: positive: Tachycardia. negative: JVD present Abdomen: positive: Non-tender, Nml bowel sounds, No distention. negative: Guarding, Rebound Back: positive: Nml inspection Skin: positive: Color nml, No rash, Warm, Dry Neurologic/Psychiatric: positive: Oriented x3 Conclusion/Plan - Problem List (1) Dyspnea Conclusion/Plan: Etiology undetermined CT Angio negative for PE BNP normal, Trop unremarkable ?COPD vs Asthma Patient supposed to be on theophylline, singular, albuterol and trelegy ellipta at home ?Ran out of medications Patient responded well to breathing treatment in the ED Shows no signs of respiratory distress. Will monitor overnight. Xopenex ordered prn PT to evaluate in the am. If doing well, patient may be discharged home. Qualifiers: Dyspnea type: acute respiratory distress Qualified Code(s): R06.03 - Acute respiratory distress (2) Tachycardia Conclusion/Plan: ?SVT. Patient is ran out of medications and has not taken them in 2 weeks Will resume once verified. Trend troponin (3) HTN (hypertension) Conclusion/Plan: On lisinopril, HCTZ and verapamil Resume once verified (4) Hyperlipidemia Conclusion/Plan: On simvastatin at home Qualifiers: Hyperlipidemia type: unspecified Qualified Code(s): E78.5 - Hyperlipidemia, unspecified (5) Hypothyroidism Conclusion/Plan: On synthroid. Checking TSH (6) Diabetes mellitus type 2, diet-controlled Conclusion/Plan: Monitor (7) Asthma Conclusion/Plan: On singulair and theophylline at home Xopenex ordered Qualifiers: Asthma severity: moderate - Lab Results Fish Bones: 05/01/18 18:50 05/01/18 18:50 Core Measures - Anticipated LOS I expect patient to be DC'd or transferred within 96 hours.: Yes - DVT/VTE - Prophylaxis VTE/DVT Device ordered at admit?: Yes VTE/DVT Prophylaxis med ordered at admit?: Yes
[2018-05-02] MEDS: SODIUM CHLORIDE FLUSH 0.9% 10 ML SYRINGE IVP SCH ×2 (02:18→09:06)
[2018-05-02] MEDS ORDERED: BENZOCAINE/MENTHOL LOZENGE MM PRN (03:15)
[2018-05-02 06:01] LABS: BASOPHILS % (AUTO) 0.4 %; HGB - HEMOGLOBIN 13.5 g/dL (12.0-16.0); LYMPHOCYTES # (AUTO) 0.5 10^3/uL (1.5-3.5); LYMPHOCYTES % (AUTO) 11.9 %; MEAN CORPUSCULAR HEMOGLOBIN 29.9 pg (27.0-31.0); MEAN CORPUSCULAR HGB CONC 32.5 g/dL (32.0-36.0); MEAN CORPUSCULAR VOLUME 91.8 fL (81.0-99.0); MEAN PLATELET VOLUME 9.3 fL (7.9-10.8); MONOCYTES % (AUTO) 0.9 %; NEUTROPHILS # (AUTO) 3.8 10^3/uL (1.5-6.6); NEUTROPHILS % (AUTO) 86.8 %; PLT - PLATELET COUNT 161 10^3/uL (130-450); RED BLOOD COUNT 4.52 10^6/uL (4.20-5.40); RED CELL DISTRIBUTION WIDTH 14.9 % (12.0-15.0); WHITE BLOOD COUNT 4.4 x10^3/uL (4.8-10.8)
[2018-05-02 06:06] LABS: CALCIUM 9.4 mg/dL (8.5-10.3); CREATININE 0.9 mg/dL (0.4-1.0)
[2018-05-02] MEDS: LEVALBUTEROL 1.25 MG/3 ML NEB INH PRN ×2 (06:29→14:57)
[2018-05-02] MEDS ORDERED: POLYETHYLENE GLYCOL 3350 17 GM PACKET PO SCH (09:00)
[2018-05-02] MEDS ORDERED: VERAPAMIL ER 120 MG TABLET PO SCH (09:00)
[2018-05-02] MEDS ORDERED: ENOXAPARIN 30 MG/0.3 ML SYRINGE SUBQ SCH (09:00)
--- NOTE | 2018-05-02 14:41 | Discharge Plan ---
Discharge Plan Disposition: Home, Self Care Condition: Good Prescriptions: Verapamil HCl [Verapamil ER] 240 mg PO DAILY #30 tablet.er Diet: Regular Activity Restrictions: Activity as Tolerated Shower Restrictions: No Driving Restrictions: No Additional Instructions or Follow Up instructions: You were admitted with shortness of breath and the most likely explanation for this was your fast heart rate. You reported that you ran out of medications, so I would like you to continue to take these, which have been sent to the pharmacy. A thyroid blood test shows that you do not need as much thyroid medication. If you have not taken your thyroid medication for the past week, I suggest to continue to NOT take it since your blood level shows no need for that. If you can ensure that you will take your verapamil, you can go home. All testing was negative for a heart attack. All imaging was negative for suspected pneumonia. Please see your PCP within one week to get further instruction about your thyroid medication and as a follow up to this hospital stay. No Smoking: If you smoke, Please STOP! Call for help. Follow-up with: Laura Mccabe MD [Primary Care Provider] -
--- NOTE | 2018-05-02 15:32 | DISCHARGE SUMMARY ---
Discharge Summary Admit Date: 05/01/18 Discharge Date: 05/02/18 Discharging Provider: LORNE Botello Primary Care Provider: Dr. Mccabe Code Status: Do Not Attempt Resuscitation Condition at Discharge: Good Discharge Disposition: 01 Home, Self Care - DIAGNOSES Admission Diagnoses: Dyspnea, unspecified (R06.00) Tachycardia, unspecified (R00.0) Essential (primary) hypertension (I10) Hyperlipidemia, unspecified (E78.5) Hypothyroidism, unspecified (E03.9) Type 2 diabetes mellitus without complications (E11.9) Unspecified asthma, uncomplicated (J45.909) Discharge Diagnoses with Status of Each Condition: Dyspnea (R06.00) resolved. Tachycardia (R00.0) resolved. HTN (hypertension) (I10) chronic, stable. Hyperlipidemia (E78.5) chronic, stable. Hypothyroidism (E03.9) chronic, stable. Diabetes mellitus type 2, diet-controlled (E11.9) Asthma (J45.909) chronic, stable. Elevated TSH (R79.89) She states that she had not been taking the medications for at least one week, so I encouraged her to follow up soon with her TSH being elevated, she may not need this medication. Medical non-compliance (Z91.19)chronic, stable. She states that she will roller picker her medications. - HPI History of Present Illness: HPI as per Dr. Jennings: Patient is an 87 y/o female who presented to the ED with complain of dyspnea. Onset was around 3pm on 05/01/18. She reports that she is having difficult walking 10ft when she used to be able to walk 50-100 ft with no difficulty. It was reported that upon presentation there was no significant air movement on auscultation so she was given a breathing treatment. At the time of this exam patient appeared very comfortable. She was breathing comfortable on room air. There was no conversational dyspnea, cough or wheezing. She also denied chest pain, abd pain, n/v/d, fever or chills. She was however persistently tachycardic. EKG was checked twice and showed sinus tachycardia with heart rates between 120's-130's. However her rhythm would intermittently suggest atrial fibrillation on telemetry screen. She is supposed to be on verapamil 240mg ER daily but she has not taken in about 2 weeks because she ran out of her medications. The rest of her history is unremarkable. - HOSPITAL COURSE Hospital Course: The patient was placed in observation and it was decided that with her missing her verapamil for nearly a week since running out of her regular prescriptions at home; this was the most likely explanation for her presenting symptoms. After resuming her verapamil, she had a complete resolution of shortness of breath, palpitations, and weakness. She was medically stable and a new prescription for verapamil was sent to her pharmacy. She was agreeable to seeing her PCP possibly on Friday or Friday since her TSH was abnormally low, indicating the incorrect dose of her thyroid supplement. - ALLERGIES Allergies/Adverse Reactions: Allergies Allergy/AdvReac Type Severity Reaction Status Date / Time codeine [Codeine] Allergy Intermediate Itching Verified 12/28/17 19:10 - MEDICATIONS Home Medications: Ambulatory Orders Medication Instructions Recorded Confirmed Montelukast [Singulair] 10 mg PO QPM 06/26/15 05/02/18 Allopurinol 300 mg PO DAILY 12/22/16 05/02/18 Aspirin 81 mg PO DAILY 12/22/16 05/02/18 Furosemide 20 mg PO PRN PRN 08/15/17 05/02/18 Theophylline Anhydrous [Carl-24] 300 mg PO DAILY 08/15/17 05/02/18 Levothyroxine [Synthroid] 125 mcg PO QDAC #10 tablet 09/02/17 05/02/18 Albuterol Sulfate [Proair Hfa 2 puffs INH Q4H PRN 05/02/18 05/02/18 Inhaler] Aspirin [Aspirin EC] 81 mg PO DAILY 05/02/18 05/02/18 Hydrochlorothiazide 12.5 mg PO DAILY 05/02/18 05/02/18 Lisinopril [Zestril] 5 mg PO DAILY 05/02/18 05/02/18 Simvastatin 20 mg PO QPM 05/02/18 05/02/18 Verapamil HCl [Verapamil ER] 240 mg PO DAILY #30 tablet.er 05/02/18 Warfarin Sodium 5 mg PO DAILY 05/02/18 05/02/18 - PHYSICAL EXAM AT DISCHARGE General Appearance: positive: No acute distress, Alert Eyes Bilateral: positive: Normal inspection, PERRL ENT: positive: ENT inspection nml, Pharynx nml, No signs of dehydration Neck: positive: Thyroid nml, No JVD, Trachea midline Respiratory: positive: Chest non-tender, No respiratory distress, Other (crackles) Cardiovascular: positive: No gallop, Irregularly irregular, Systolic murmur, Decreased pulse(s) Peripheral Pulses: positive: 1+ Abdomen: positive: Non-tender, Nml bowel sounds Back: positive: Nml inspection Skin: positive: No rash, Warm, Dry Extremities: positive: Non-tender, Full ROM, No pedal edema Neurologic/Psychiatric: positive: Oriented x3, CN's nml (2-12), Motor nml, Sensation nml, Weakness Reflexes: Bicep (R): 3+, Bicep (L): 3+ - LABS Result Diagrams: 05/02/18 05:17 05/02/18 05:17 - DIAGNOSTIC IMAGING Diagnostic Imaging Results: Final report reviewed Diagnostic Imaging Results Comments: EXAM: CHEST RADIOGRAPHY EXAM DATE: 05/01/2018 08:00 PM IMPRESSION: 1. No acute cardiopulmonary abnormality. EXAM: CT ANGIOGRAM CHEST EXAM DATE: 05/01/2018 IMPRESSION: 1. Negative for pulmonary embolism at this time. 2. 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 3. Coronary artery calcifications. 4. Chronic lung disease similar to previous exam. ECHOCARDIOGRAM: Preliminary results show grade II diastolic dysfunction and pulmonary HTN. - SEPSIS Current Stage of Sepsis: Ruled out - FOLLOW UP Follow Up: Disposition: Home, Self Care Prescriptions: Verapamil HCl [Verapamil ER] 240 mg PO DAILY #30 tablet.er Additional Instructions or Follow Up instructions: You were admitted with shortness of breath and the most likely explanation for this was your fast heart rate. You reported that you ran out of medications, so I would like you to continue to take these, which have been sent to the pharmacy. A thyroid blood test shows that you do not need as much thyroid medication. If you have not taken your thyroid medication for the past week, I suggest to continue to NOT take it since your blood level shows no need for that. If you can ensure that you will take your verapamil, you can go home. All testing was negative for a heart attack. All imaging was negative for suspected pneumonia. Please see your PCP within one week to get further instruction about your thyroid medication and as a follow up to this hospital stay. - TIME SPENT Time Spent in Discharge (Minutes): 50
[2018-05-02 15:37] VITALS: BP 112/52
== END 2018-05-02 16:43 | disposition home or self-care (01) ==
LOC: EDUNIT# → ED 18:27 → OBS 22:08
PROVIDERS: ADMIT Internal Medicine; ATTEND Nurse Practitioner
DX: R06.00 Dyspnea, unspecified (principal); R00.0 Tachycardia, unspecified; T46.1X6A Underdosing of calcium-channel blockers, initial encounter; I10 Essential (primary) hypertension; E78.5 Hyperlipidemia, unspecified; E03.9 Hypothyroidism, unspecified; E11.9 Type 2 diabetes mellitus without complications; J45.909 Unspecified asthma, uncomplicated; I25.10 Atherosclerotic heart disease of native coronary artery without angina pectoris; G20 Parkinson's disease; Z87.891 Personal history of nicotine dependence; Z66 Do not resuscitate
CPT/HCPCS: 36415; 71046; 71275; 80048; 80053; 82803; 83690; 83880; 84443; 84484; 85025; 85610; 93005; 93306; 94640; 96360; 96372; 97161; 99284; A9270; G0378; J1650; J7512; Q9967

== ENCOUNTER 2019-02-10 13:50 | Outpatient (CLI) | payer MEDICARE, OTHER ==
--- NOTE | 2019-02-11 11:09 | XRAY Report ---
Reason: OTHER SPRAIN OF RIGHT FOOT, INITIAL ENCOUNTER Procedure Date: 02/10/2019 Accession Number: [id number] / [id number] Procedure: XR - Foot 3 View RT CPT Code: Final Report FULL RESULT: EXAM: RIGHT FOOT RADIOGRAPHY EXAM DATE: 02/10/2019 02:07 PM. CLINICAL HISTORY: OTHER SPRAIN OF RIGHT FOOT, INITIAL ENCOUNTER. COMPARISON: FOOT 3 VIEW RT 07/26/2012 7:16 AM. TECHNIQUE: 3 views. FINDINGS: Bones: No acute fractures or bone lesions. Bones appear osteopenic. Joints: Unremarkable. Soft Tissues: Unremarkable. IMPRESSION: 1. No acute osseous abnormality. 2. Osteopenia. RADIA
== END 2019-02-10 13:51 | disposition home or self-care (01) ==
LOC: DI 13:50
PROVIDERS: ATTEND Internal Medicine
DX: S93.691A Other sprain of right foot, initial encounter (principal); M85.871 Other specified disorders of bone density and structure, right ankle and foot

== ENCOUNTER 2020-05-25 16:17 | Outpatient (CLI) | payer MEDICARE, OTHER | END 2020-05-25 16:18 | disposition critical access hospital (66) | LOC: EMS 16:17 | PROVIDERS: ATTEND Emergency Medicine | DX: R06.09 Other forms of dyspnea (principal); R00.2 Palpitations | CPT/HCPCS: A0425; A0429 ==

== ENCOUNTER 2020-05-25 16:36 | Emergency (ER) | payer MEDICARE, OTHER ==
[2020-05-25] MEDS ORDERED: diltiaZEM INJ 5 MG/ML VIAL IVP STA (16:46)
--- NOTE | 2020-05-25 16:49 | ED Physician Documentation ---
History of Present Illness - Stated complaint Stated Complaint: AFIB - Chief complaint Chief Complaint: Cardiac - Additonal information Additional information: 89-year-old female presents the emergency department for evaluation of her heart rate. Patient reports to me that she went to her doctor's office to get a refill of her medications. At the physician's office she was noted to have a rapid heart rate and therefore EMS was summoned. On presentation the patient is in atrial fib with RVR at a rate of about 172. The patient is unsure if she has a history of atrial fibrillation and to the best of her knowledge is not currently taking any anticoagulants. Pt reports t me that she has been out of her verapamil for about 3 days which is why she went ot her doctors office today The patient reports that for a few months she has felt palpitations. She is feeling progressively short of breath with exertion but she attributes that to her history of COPD and asthma. She does not have any unilateral leg swelling cough or fever. Review of Systems Constitutional: denies: Fever Eyes: reports: Loss of vision Ears: reports: Reviewed and negative Nose: reports: Rhinorrhea / runny nose Throat: reports: Reviewed and negative Cardiac: reports: Palpitations. denies: Pedal edema Respiratory: reports: Dyspnea. 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 : Chronic bladder infection, Nocturia HEENT: Chronic vision loss, Macular degeneration, Chronic hearing loss Psych: Claustrophobia Musculoskeletal: Gout Derm: None - Past Surgical History Past Surgical History: Yes General: Bowel surgery HEENT: Cataracts - Present Medications Home Medications: Ambulatory Orders Medication Instructions Recorded Confirmed Montelukast [Singulair] 10 mg PO QPM 06/26/15 05/02/18 Aspirin 81 mg PO DAILY 12/22/16 05/02/18 allopurinoL [Allopurinol] 300 mg PO DAILY 12/22/16 05/02/18 Furosemide 20 mg PO PRN PRN 08/15/17 05/02/18 Theophylline Anhydrous [Carl-24] 300 mg PO DAILY 08/15/17 05/02/18 Levothyroxine [Synthroid] 125 mcg PO QDAC #10 tablet 09/02/17 05/02/18 Albuterol Sulfate [Proair Hfa 2 puffs INH Q4H PRN 05/02/18 05/02/18 Inhaler] Aspirin [Aspirin EC] 81 mg PO DAILY 05/02/18 05/02/18 Hydrochlorothiazide 12.5 mg PO DAILY 05/02/18 05/02/18 Simvastatin 20 mg PO QPM 05/02/18 05/02/18 Verapamil HCl [Verapamil ER] 240 mg PO DAILY #30 tablet.er 05/02/18 Warfarin Sodium 5 mg PO DAILY 05/02/18 05/02/18 lisinopriL [Zestril] 5 mg PO DAILY 05/02/18 05/02/18 Verapamil HCl [Verelan] 240 mg PO DAILY #30 05/25/20 - Allergies Allergies/Adverse Reactions: Allergies Allergy/AdvReac Type Severity Reaction Status Date / Time codeine [Codeine] Allergy Intermediate Itching Verified 05/25/20 16:43 - Social History Does the pt smoke?: No Smoking Status: Former smoker Does the pt drink ETOH?: No Does the pt have substance abuse?: No - Immunizations Immunizations are current?: Yes - POLST Patient has POLST: No POLST Status: DNR PD ED PE EXPANDED - General General: Alert, No acute distress - Neck Neck: Supple w/out meningeal sx, No tenderness. No: Adenopathy, Soft tissue TTP - Cardiac Cardiac: Irregularly irregular, Radial strong equal, Pedal strong equal, Cap refill < 2 sec - Respiratory Respiratory: Clear to ausultation kemal. No: Distress, Labored - Abdomen Abdomen: Normal Bowel sounds. No: Tender to palpation - Derm Derm: Normal color, Warm and dry - Extremities Extremities: Normal. No: Deformity, Tenderness - Neuro Neuro: Alert and Oriented X 3, CNII-XII intact - GCS Eye Opening: Spontaneous Motor: Obeys Commands Verbal: Oriented Total: 15 Results - Vitals Vitals: Vital Signs - 24 hr 05/25/20 05/25/20 05/25/20 16:43 16:49 16:56 Temperature 37.0 C 36.9 C Heart Rate 168 H 159 H 115 H Respiratory 20 29 H 32 H Rate Blood Pressure 121/74 103/70 93/53 L O2 Saturation 99 95 95 05/25/20 05/25/20 17:11 17:25 Temperature Heart Rate 119 H 95 Respiratory 29 H 26 H Rate Blood Pressure 104/53 L 101/66 O2 Saturation 94 94 Oxygen O2 Source [] Room air O2 Source Room air - EKG (time done) 1634 Rate: Rate (enter#) (172) Rhythm: Atrial fibrillation Intervals: Other (LAFB) QRS: LVH Ischemia: Non specific changes Compare to prior EKG: Changed from prior EKG (now fib) 1736 Rate: Rate (enter#) (97) Rhythm: NSR, Other (with PAC) [place]: Normal Intervals: Normal [place], Prolonged QT (463) Ischemia: Q waves (inferior) Compare to prior EKG: Changed from prior EKG (now converted to NSR) - Labs Labs: Laboratory Tests 05/25/20 05/25/20 05/25/20 17:02 17:02 17:02 WBC 9.2 RBC 4.46 Hgb 13.7 Hct 42.3 MCV 94.8 MCH 30.7 MCHC 32.4 RDW 14.0 Plt Count 194 MPV 11.0 H Neut # (Auto) 7.2 H Lymph # (Auto) 1.2 L [place] # (Auto) 0.6 Eos # (Auto) 0.1 Baso # (Auto) 0.1 Absolute Nucleated RBC 0.00 Nucleated RBC % 0.0 PT INR Sodium 137 Potassium 3.4 L Chloride 100 L Carbon Dioxide 26 Anion Gap 11.0 BUN 21 H Creatinine 1.0 Estimated GFR (MDRD) 52 L Glucose 162 H Calcium 9.6 Total Bilirubin 0.5 AST 19 ALT 13 Alkaline Phosphatase 62 Troponin I High Sens 18.2 H* B-Natriuretic Peptide Total Protein 7.4 Albumin 4.0 Globulin 3.4 Albumin/Globulin Ratio 1.2 Lipase 29 TSH Free T4 05/25/20 05/25/20 05/25/20 17:02 17:02 17:02 WBC RBC Hgb Hct MCV MCH MCHC RDW Plt Count MPV Neut # (Auto) Lymph # (Auto) [place] # (Auto) Eos # (Auto) Baso # (Auto) Absolute Nucleated RBC Nucleated RBC % PT 13.2 H INR 1.2 Sodium Potassium Chloride Carbon Dioxide Anion Gap BUN Creatinine Estimated GFR (MDRD) Glucose Calcium Total Bilirubin AST ALT Alkaline Phosphatase Troponin I High Sens B-Natriuretic Peptide 195 H Total Protein Albumin Globulin Albumin/Globulin Ratio Lipase TSH 0.14 L Free T4 05/25/20 17:02 WBC RBC Hgb Hct MCV MCH MCHC RDW Plt Count MPV Neut # (Auto) Lymph # (Auto) [place] # (Auto) Eos # (Auto) Baso # (Auto) Absolute Nucleated RBC Nucleated RBC % PT INR Sodium Potassium Chloride Carbon Dioxide Anion Gap BUN Creatinine Estimated GFR (MDRD) Glucose Calcium Total Bilirubin AST ALT Alkaline Phosphatase Troponin I High Sens B-Natriuretic Peptide Total Protein Albumin Globulin Albumin/Globulin Ratio Lipase TSH Free T4 1.60 - Rads (name of study) CXR Radiology: Final report received (Mild or early left lower lobe pneumonia behind the heart) PD MEDICAL DECISION MAKING - ED course Complexity details: reviewed results, re-evaluated patient, considered differential, d/w patient ED course: 89-year-old female presented to the emergency department for evaluation of a ra pid heart rate. When she presented she was in atrial fib with a rate approaching 170. She was initially given 10 mg of diltiazem and it did slow her heart rate into the 120s but her blood pressure did drop briefly to about 90/50. Shortly thereafter we did deliver her 2.5 mg of Metroprolol which successfully converted her to sinus rhythm and her blood pressure has been stable since. Screening labs today show no anemia and her electrolytes are without significant concern. She is noted to have a low TSH, but normal T4. Her pcp conitnues to adjust her levothyroxine as an outpatient When she converted to sinus rhythm the patient was observed here in the emergency department and she remained well. We did road test her with a stable gait without syncope or vertiginous symptoms. Chest x-ray suggests a left lower lobe pneumonia but patient has no cough fever or leukocytosis. Her BNP is not markedly elevated. High-sensitivity troponin was 18. BNP < 200. Given the RVR, elevated trop does not likely represent ACS. It had reported to this provider that she has been out of her verapamil for about 3 days this is likely the cause of her A. fib RVR. I will renew this medication and have her to continue follow-up with her primary care doctor. Departure - Departure Disposition: 01 Home, Self Care Clinical Impression: Atrial fibrillation with rapid ventricular response, Has run out of medications Condition: Stable Record reviewed to determine appropriate education?: Yes Instructions: Atrial Fibrillation Dc Prescriptions: Verapamil HCl [Verelan] 240 mg PO DAILY #30 Comments: Greta you were seen in the emergency department today for fast heart rate. When you arrived you were in atrial fibrillation. This is most likely because you ran out of your verapamil about 3 to 4 days ago. I have renewed this medication and it is important that you fill the prescription and begin taking regularly. As we discussed your TSH was low but the corrected T4 was appropriate. It is important to discuss this with your primary care doctor as he will continue to further manage your levothyroxine. At any point you find that you have a heart rate that is elevated at rest, you feel short of breath or have chest pain then please return immediately to the emergency department.
[2020-05-25] MEDS ORDERED: METOPROLOL 5 MG/5 ML VIAL IVP STA (17:04)
--- NOTE | 2020-05-25 17:07 | XRAY Report ---
PROCEDURE: Chest 1 View X-Ray INDICATIONS: Chest Pain TECHNIQUE: One view of the chest was acquired. COMPARISON: Chest plain films 05/01/2018 reviewed FINDINGS: Surgical changes and devices: None. Lungs and pleura: No pleural effusions or pneumothorax. Lungs are clear on the right but there is w hat appears to be mild or early pneumonia at the left lung base behind the heart. Mediastinum: Mediastinal contours appear normal. Heart size is normal. Bones and chest wall: No suspicious bony lesions. Overlying soft tissues appear unremarkable. IMPRESSION: Mild or early left lower lobe pneumonia behind the heart. Reviewed by: Anton Luis MD on 05/25/2020 4:06 PM [facility] Approved by: Anton Luis MD on 05/25/2020 4:06 PM [facility] Station ID: [id number]
[2020-05-25 17:08] LABS: BASOPHILS # (AUTO) 0.1 10^3/uL (0.0-0.1); BASOPHILS % (AUTO) 0.8 %; EOSINOPHILS # (AUTO) 0.1 10^3/uL (0.0-0.7); EOSINOPHILS % (AUTO) 0.8 %; HCT - HEMATOCRIT 42.3 % (37.0-47.0); HGB - HEMOGLOBIN 13.7 g/dL (12.0-16.0); LYMPHOCYTES # (AUTO) 1.2 10^3/uL (1.5-3.5); LYMPHOCYTES % (AUTO) 13.5 %; MEAN CORPUSCULAR HEMOGLOBIN 30.7 pg (27.0-31.0); MEAN CORPUSCULAR HGB CONC 32.4 g/dL (32.0-36.0); MEAN CORPUSCULAR VOLUME 94.8 fL (81.0-99.0); MONOCYTES # (AUTO) 0.6 10^3/uL (0.0-1.0); MONOCYTES % (AUTO) 6.3 %; NEUTROPHILS # (AUTO) 7.2 10^3/uL (1.5-6.6); NEUTROPHILS % (AUTO) 78.3 %; PLT - PLATELET COUNT 194 10^3/uL (130-450); RED BLOOD COUNT 4.46 10^6/uL (4.20-5.40); WHITE BLOOD COUNT 9.2 x10^3/uL (4.8-10.8)
[2020-05-25 17:14] LABS: INR 1.2 (0.8-1.2); PT - PROTHROMBIN TIME 13.2 secs (9.9-12.6)
[2020-05-25 17:24] LABS: ALBUMIN/GLOBULIN RATIO 1.2 (1.0-2.2); BILIRUBIN,TOTAL 0.5 mg/dL (0.2-1.0); CALCIUM 9.6 mg/dL (8.5-10.3); POTASSIUM 3.4 mmol/L (3.5-5.0); TOTAL PROTEIN 7.4 g/dL (6.7-8.2)
[2020-05-25 18:47] VITALS: BP 104/66
== END 2020-05-25 19:00 | disposition home or self-care (01) ==
LOC: EDUNIT# → SUPCPDRO 16:36 → ED 16:36
DX: I48.91 Unspecified atrial fibrillation (principal); I10 Essential (primary) hypertension; Z87.891 Personal history of nicotine dependence; Z91.14 Patient's other noncompliance with medication regimen
CPT/HCPCS: 36415; 80053; 83690; 83880; 84439; 84443; 84484; 85025; 85610; 93005; 96374; 96375; 99283